=== PATIENT | female | born 1980 | race Caucasian/White ===

== ENCOUNTER 2022-03-20 19:07 | Outpatient (REF) | payer BC, SELFPAY ==
[2022-03-20 20:36] LABS: Bilirubin Negative (Negative); Blood Small (Negative); Clarity Cloudy (Clear); Glucose Negative (Negative); Ketones Negative (Negative); Leukocyte Esterase Large (Negative); Nitrite Negative (Negative); Specific Gravity 1.015 (1.005-1.025); Urobilinogen 0.2 EU/dL (Up TO 0.2); pH 6.5 (5-8)
[2022-03-20 20:47] LABS: Bacteria Many HPF (Negative); C & S Indicated? C&S Done As Ordered; Crystals Negative HPF (Negative); Epithelial Cells Moderate HPF (Negative); Mucus Negative (Negative); RBC 0-2 HPF (0-2); WBC >50 HPF (0-5)
== END 2022-03-20 19:08 | disposition home or self-care (01) ==
LOC: LBN 19:07
PROVIDERS: Visit Provider Physician Assistant Medical
DX: N39.0 Urinary tract infection, site not specified (principal)
CPT/HCPCS: 87077; 81003; 81015; 87086; 87186

== ENCOUNTER 2022-03-20 20:03 | Inpatient (IN) | payer BC, SELFPAY ==
[2022-03-20] VITALS (14 sets, daily range): BP systolic 88–96; BP diastolic 51–78; PULSE 90–105; RESP 10–18; TEMP 36.4; O2SAT 98–100
--- NOTE | 2022-03-20 20:32 | ED.GENADUL_ITS ---
Discharge Plan Discharge Details Chief Complaint: FlankPain Admit Date/Time: 03/21/22 00:27 Admit Provider: Wolf Maddox Attending Provider: Wolf Maddox Primary Care Provider: Kerrie,Local ED Provider: Salena Friedman Discharge Data Discharge Date/Time-TO BE ENTERED AT DEPARTURE: 03/21/22 02:00 Medical Decision Making Patient is a pleasant 41 year old female presenting today with c/c of UTI and right sided flank pain. She states that she had initial onset of symptoms a few weeks ago. Was seen out outside hospital, diagnosed with UTI, pyelonephritis, kidney stone and treated with PO Macrobid x 1wk. She reports that this initially helped with her symptoms but that 2 days after stopping the abx, her sxs began again. She has not had any dysurea, frequency or urency. However, she notes that her urine has been foul smelling and cloudy. Prior to this incident, last UTI was in 2012. She denies vaginal discharge. States she has been constipated. T max of 99. Endorses nausea, no vomiting. Reports the right flank pain can radiate to right side of abdomen. On exam, patient appears fatigued and uncomfortable, splinting her right side. She does not appear septic at this time. Lungs are clear, normal cardiac auscultation. Abdomen significant for some right lateral mid abdominal discomfort, close to the lower aspect CVA on that side. Does have pain with CVA percussion on the right. Patient is hypertensive a blood pressure of 88/60, slightly tachycardic with a heart rate of 105. She reports that her blood pressure is typically well, patient is fairly thin. No history of hypertension, no familial history of hypertension. I do not have previous blood pressure for comparison but based on description, this could be baseline for the patient. She does appear dehydrated. We will begin the patient on fluids. We will obtain imaging for possible stone and blood work. Patient declines any antiemetics analgesics. Labs reviewed, signficant for WBC of 33 with bands noted. UA consistent with UTI. We will also obtain blood cultures with a significant white count. Patient started on 1 g ceftriaxone. FINDINGS: Lungs: Mild atelectasis in the lung bases. Heart: Heart size normal. Mediastinal space: The visualized distal esophagus is largely contracted without gross abnormality. Liver: Normal contour. Well-circumscribed low-density lesion in the left hepatic lobe demonstrating benign CT features most consistent with hepatic cyst. No further imaging characterization/followup is required based on current consensus criteria. No intrahepatic biliary ductal dilatation. Gallbladder and bile ducts: Normal. No calcified stones. No ductal dilation. Pancreas: Normal. No inflammatory changes or ductal dilation. Spleen: Normal. No splenomegaly. Adrenal glands: Normal. No adrenal mass. Kidneys and ureters: 3 mm nonobstructive right renal stone. Asymmetric right renal enlargement with moderate right perinephric stranding. There is right periureteral stranding without gross ureterectasis. Consider UTI and pyelonephritis. Postcontrast CT would allow more sensitive/specific assessment for changes of pyelonephritis if clinically indicated. The distal right ureter is difficult to definitively identify due to relative lack of intrapelvic fat in the region. There are 3 calcifications in the right hemipelvis measuring 6 mm, 3 mm, and 4 mm, which are felt to most likely be separate from the distal right ureter and likely represent phleboliths although it is difficult to completely exclude a distal ureteral stone. The left kidney and left collecting system are unremarkable. Stomach and bowel: The stomach is largely contracted without gross abnormality. The small bowel is nondilated with no gross abnormality. There is a large amount of stool distributed in the mid and proximal colon suggesting possible constipation. Appendix: The appendix is not identified. No gross changes of appendicitis. Intraperitoneal space: Small amount of intrapelvic free fluid, within physiologic range for a young woman. No free air. Vasculature: No acute process. No abdominal aortic aneurysm. Lymph nodes: No adenopathy. Urinary bladder: The urinary bladder is largely contracted without gross abnormality. Reproductive: IUD in the uterus, grossly well-positioned. Bones/joints: No acute osseous abnormalities. Soft tissues: Unremarkable. IMPRESSION: 1. Asymmetric right-sided perinephric and periureteral stranding without gross hydronephrosis or hydroureter. Consider UTI/pyelonephritis. Postcontrast CT would allow more sensitive/specific confirmation for changes of pyelonephritis if clinically indicated. No gross abscess. 2. 3 mm nonobstructive right renal stone. No definite ureteral stones are identified although there are multiple intrapelvic calcifications which probably represent phleboliths although the distal ureter is difficult to identify and the possibility of a distal ureteral stone is difficult to definitively exclude. 3. Large amount of stool in the mid and proximal colonic segments suggesting constipation. 4. Small amount of intrape lvic free fluid, within physiologic range for a young woman. No free air. 5. Additional nonemergent findings detailed above. Consulted with Dr. Amanda with urology at [facility]. She advised that hte stone is small, not the issue. Feels that the constipation may be complicating this. Recommended trying to assist with this and that it would likely correct some of her issues. She did not feel that this was pyelonephritis. Feels that there is nothing more needed for stone. Advised this should be able pass without assistance and does not need Flomax. Remain concerned given the patient's general malaise, significant leukocytosis as the patient may be becoming septic. As stone is present, will broaden antibiotic coverage and transition to Zosyn. As recommended by Dr. Amanda, will give patient magnesium citrate to induce bowel movement. Plan to admit the patient for continued monitoring and management of her pyelonephritis, stone and constipation. I discussed this plan with the patient. She is feeling improved after initial dose of antibiotic and fluids. She is in agreement with plan for admission. Consult with Dr. Page who agrees to admission. HPI General Date/Time Provider Initiated Documentation: 03/20/22 20:07 . Limitations to Documentation: no limitations . Information obtained by: patient, family, RN/MD (contact by urgent care cliician prior to arrival) and RN notes reviewed . History of Present Illness 41 year old F presents to the emergency department with the chief complaint of right flank pain, increeased frequency/urgency of urination, general malais, described as moderate, with intensity rated at 7. Quality is described as aching, and is localized to the back. Patient reports no radiation. Patient started experiencing this week(s) and it has been intermittent (had improved briefly with abx but has gotten much worse now). Medication improves symptom(s), (abx) No exacerbating factors reported . Patient notes loss of appetite, malaise and nausea/vomiting; denies confusion, chest pain, cough, diaphoresis, fever/chills, headaches, rash and shortness of breath. Patient did receive the following treatments prior to arrival, none Related Data Home Medications Medication Instructions Recorded Confirmed Zn-pyg [id number] palmet cap PO 03/21/22 capsule ascorbic acid (vitamin C) 100 mg See Rx Instructions .Route .COMPLEX 03/21/22 03/21/22 tablet dextroamphetamine-amphetamine 5 mg 5 mg PO BID 03/21/22 03/21/22 tablet (Adderall) ferrous gluconate 225 mg (27 mg See Rx Instructions .Route .COMPLEX 03/21/22 03/21/22 iron) tablet lamotrigine 200 mg tablet 200 mg PO BID 03/21/22 03/21/22 (Lamictal) mecobalamin (vitamin B12) 1,000 mcg PO 03/21/22 mcg chewable tablet (B12 Active) pravastatin 40 mg tablet 40 mg 03/21/22 sertraline 100 mg tablet (Zoloft) 100 mg PO BID 03/21/22 03/21/22 bupropion HCl 100 mg tablet,12 hr 100 mg PO DAILY 03/22/22 03/22/22 sustained-release bupropion HCl 150 mg 24 hr tablet, 150 mg PO DAILY 03/22/22 03/22/22 extended release Allergies Allergy/AdvReac Type Severity Reaction Status Date / Time codeine Allergy Unknown Verified 03/23/22 11:06 General Stated Complaint: FlankPain JERROD: 3 Review of Systems Constitutional Constitutional: Reports as per HPI, Denies chills and Denies fever(s) Cardiovascular Cardiovascular: Denies chest pain Respiratory Respiratory: Denies cough Gastrointestinal Gastrointestinal: Denies abdominal pain Genitourinary Genitourinary: Reports as per HPI Musculoskeletal Musculoskeletal: Reports as per HPI Integumentary/Breasts Skin/Breast: Reports as per HPI and Denies rash [facility] All Active Problems (Updated 03/24/22 @ 15:02 by Joan Douglas NP) Discharge planning issues (Acute) Anemia (Chronic) Constipation (Chronic) Renal lithiasis (Acute) Pyelonephritis, acute (Acute) Medical History (Updated 03/24/22 @ 15:02 by Joan Douglas NP) Major depression, chronic Family History (Updated 03/21/22 @ 01:32 by Wolf Maddox) Other Family history non-contributory Social History Smoking/Tobacco Use Status: Never Smoking risk assessment performed?: Yes Alcohol Intake: never Drug use: Never Substance use type: does not use Do you feel safe at home: Yes Do you feel safe in your relationship?: Yes Exam Const General: cooperative, comfortable, no acute distress, well developed, well groomed and ill appearing acutely Nutritional Appearance: well nourished and thin Orientation: alert and awake [facility] Mouth: mucous membranes dry (appears dry) Resp Effort & Inspection: normal respiratory effort and no respiratory distress Auscultation: clear to auscultation bilaterally, no rales, no rhonchi and no wheezes Cardio Rate: regular rate Rhythm: regular rhythm Heart Sounds: S1 normal and S2 normal GI Inspection: normal to inspection Palpation: soft, no hepatosplenomegaly, not firm, no guarding, not rigid and tender (right lateral mid abdomen discomfort) not at McBurney's point, Ramirez's sign negative and with no rebound tenderness Percussion: normal to percussion Auscultation: normal bowel sounds Back/Spine/Pelvis Back: CVA tenderness (right side) Skin General skin exam: no rashes or lesions noted Trauma: no lacerations or abrasions Neuro General: patient alert and patient awake Cognition: normal cognition Speech: speech normal Gait: normal gait Extrem General: normal to inspection, no pedal edema, no calf tenderness and normal gait Psych Appearance: grossly normal and well kempt Mental Status: mental status grossly normal Speech and Movement: speech and movement normal Course Vital Signs Vital signs: Vital Signs Temperature 36.4 C L 03/20/22 20:09 Pulse 105 H 03/20/22 20:09 Respiratory Rate 18 03/20/22 20:09 Blood Pressure 88/68 L 03/20/22 20:09 Pulse Oximetry 99 03/20/22 20:09 Temperature 36.4 C L 03/20/22 20:09 Temperature Source Tympanic 03/20/22 20:09 Pulse 105 H 03/20/22 20:09 Respiratory Rate 18 03/20/22 20:09 Respiratory Effort Non-Labored 03/20/22 20:14 Blood Pressure 88/68 L 03/20/22 20:09 Blood Pressure Position Supine 03/20/22 20:09 Pulse Oximetry 99 03/20/22 20:09 Oxygen Delivery Method Room Air 03/20/22 20:09 Oxygen Flow Rate 0 03/20/22 20:09 Pain Level 7 03/20/22 20:09
--- NOTE | 2022-03-20 21:00 | DI.CT_ITS ---
Exam(s) CT RENAL COLIC WO EXAM: CT RENAL COLIC WO CLINICAL HISTORY: right flank. TECHNIQUE: Imaging Protocol: Axial computed tomography images with coronal and sagittal reformatted images were created and reviewed CONTRAST MATERIAL: Intravenous: none Oral: None COMPARISON: No exams were available for comparison FINDINGS: VISUALIZED LUNG BASES: No nodules nor pleural effusions evident. ABDOMEN: There is no ascites. LIVER: There are no obvious focal hepatic lesions evident of this noninfused study. GALLBLADDER/BILIARY: No obvious gallbladder pathology. CBD is not dilated. PANCREAS: No evidence of pancreatic mass nor dilatation of the pancreatic duct. SPLEEN: Spleen is not enlarged. No obvious intrasplenic lesions. ADRENALS: There are no significant adrenal masses. KIDNEYS:Both kidneys appears somewhat hypodense. However, there is also a small 2-3 millimeter nonob structive calculus in the right kidney midpole level. There is also mild stranding around the right kidney. No cyst or solid renal masses.. ABDOMINAL AORTA: Abdominal aorta is not enlarged. LYMPH NODES: There is no retroperitoneal nor paraaortic adenopathy. ABDOMINAL WALL: No evidence of significant anterior abdominal wall nor inguinal hernia. GI: There is no evidence of bowel obstruction, free air, nor abscess. PELVIS: LYMPH NODES: There is no intrapelvic nor inguinal adenopathy. GI: Appendix not able to be identified as a separate structure but there no obvious signs of acute ap pendicitis.No evidence of sigmoid diverticulitis. URINARY BLADDER: No calculi nor obvious masses evident REPRODUCTIVE: IUD is noted in the pelvis. No abnormal adnexal masses. Small amount of free fluid in the cul-de-sac noted OSSEOUS: No significant osseous lesions. IMPRESSION: 1. There is a solitary 2-3 millimeter midpole level calculus in the right kidney and some mild perine phric streaking on the right side noted. No hydronephrosis. Possibly related to urinary tract infec tion/pyelonephritis. Postcontrast CT scan would be more sensitive/specific confirmation for findings of bowel nephritis, if clinically indicated. There is no obvious renal abscess evident on this sulma nfused study. 2. IUD noted in the uterus. Also small amount of fluid in the cul-de-sac. No obvious abnormal adnex al masses although the ovaries are difficult to delineate from adjacent unopacified small bowel loops . 3. Other findings as above. RADIATION DOSE DELIVERED: 435.27mGy.cm Total DLP DATA REPOSITORY: All CT scans at this facility are submitted to the National Radiology Data Registry (NRDR) Dose Index Registry (DIR) with the [employer] ([employer]). RADIATION OPTIMIZATION: All CT scans at this facility use at least one of these dose optimization te chniques: automated exposure control; mA and/or kV adjustment per patient size (includes targeted exa ms where dose is matched to clinical indication); or iterative reconstruction.
[2022-03-20] MEDS: Normal Saline 1,000 ML 1000 ML IV ×2 (21:09→22:28)
[2022-03-20 21:13] LABS: HCT 36.9 % (36.0-46.0); MCH 30.8 pg (27.0-33.0); MCHC 32.5 % (32.0-36.0); MCV 95 fL (80-95); MPV 10.1 fL (8.0-11.0); Platelet Count 412 10^3/uL (130-400); RBC 3.89 10^6/uL (3.93-5.22); RDW 13.2 % (11.7-14.6); RDW-SD 45.3 fL
[2022-03-20 21:14] LABS: Bilirubin Negative (Negative); Blood Moderate (Negative); Clarity Turbid (Clear); Glucose Negative (Negative); Ketones Negative (Negative); Leukocyte Esterase Large (Negative); Nitrite Negative (Negative); Specific Gravity 1.025 (1.005-1.025)
[2022-03-20 21:25] LABS: Bacteria Many HPF (Negative); Crystals Negative HPF (Negative); Epithelial Cells Moderate HPF (Negative); Mucus Negative (Negative); RBC 0-2 HPF (0-2); WBC >50 HPF (0-5)
[2022-03-20 21:28] LABS: C & S Indicated? No
[2022-03-20 21:36] LABS: ALT 21 U/L (14-59); AST 17 U/L (15-37); Albumin 3.2 g/dL (3.4-5.0); Alkaline Phosphatase 75 U/L (46-116); Anion Gap 9.4 mmol/L (3-11); BUN 11 mg/dL (7-18); Bilirubin, Total 0.5 mg/dL (0.2-1.0); CO2 28.6 mmol/L (21.0-32.0); Calcium 8.6 mg/dL (8.5-10.1); Chloride 96 mmol/L (98-107); Glucose 98 mg/dL (74-106); Potassium 3.7 mmol/L (3.5-5.1); Sodium 134 mmol/L (136-145); Total Protein 7.1 g/dL (6.4-8.2)
[2022-03-20 21:41] LABS: Absolute Lymphocyte Count 1.67 10^3/uL (1.2-3.4); Absolute Monocyte Count 2.34 10^3/uL (0.1-0.8); Absolute Neutrophil Count 29.14 10^3/uL (1.2-6.7); Bands % 1; Diff Comment Manual Differential; Metamyelocytes % 1; RBC Morphology Normal
[2022-03-20 21:43] LABS: WBC 33.49 10^3/uL (4.4-10.8)
[2022-03-20] MEDS: cefTRIAXone 1 GM/50 ML BAG IVPB (22:28)
--- NOTE | 2022-03-20 22:39 | DI.VRAD_ITS ---
PROCEDURE INFORMATION: Exam: CT Abdomen And Pelvis Without Contrast Exam date and time: 03/20/2022 9:59 PM Age: 41 years old Clinical indication: Abdominal pain; Flank; Right; Prior surgery; Surgery date: 6+ months; Surgery type: Appendectomy; Additional info: Right flank pain TECHNIQUE: Imaging protocol: Computed tomography of the abdomen and pelvis without contrast. Radiation optimization: All CT scans at this facility use at least one of these dose optimization techniques: automated exposure control; mA and/or kV adjustment per patient size (includes targeted exams where dose is matched to clinical indication); or iterative reconstruction. COMPARISON: No relevant prior studies available. FINDINGS: Lungs: Mild atelectasis in the lung bases. Heart: Heart size normal. Mediastinal space: The visualized distal esophagus is largely contracted without gross abnormality. Liver: Normal contour. Well-circumscribed low-density lesion in the left hepatic lobe demonstrating benign CT features most consistent with hepatic cyst. No further imaging characterization/followup is required based on current consensus criteria. No intrahepatic biliary ductal dilatation. Gallbladder and bile ducts: Normal. No calcified stones. No ductal dilation. Pancreas: Normal. No inflammatory changes or ductal dilation. Spleen: Normal. No splenomegaly. Adrenal glands: Normal. No adrenal mass. Kidneys and ureters: 3 mm nonobstructive right renal stone. Asymmetric right renal enlargement with moderate right perinephric stranding. There is right periureteral stranding without gross ureterectasis. Consider UTI and pyelonephritis. Postcontrast CT would allow more sensitive/specific assessment for changes of pyelonephritis if clinically indicated. The distal right ureter is difficult to definitively identify due to relative lack of intrapelvic fat in the region. There are 3 calcifications in the right hemipelvis measuring 6 mm, 3 mm, and 4 mm, which are felt to most likely be separate from the distal right ureter and likely represent phleboliths although it is difficult to completely exclude a distal ureteral stone. The left kidney and left collecting system are unremarkable. Stomach and bowel: The stomach is largely contracted without gross abnormality. The small bowel is nondilated with no gross abnormality. There is a large amount of stool distributed in the mid and proximal colon suggesting possible constipation. Appendix: The appendix is not identified. No gross changes of appendicitis. Intraperitoneal space: Small amount of intrapelvic free fluid, within physiologic range for a young woman. No free air. Vasculature: No acute process. No abdominal aortic aneurysm. Lymph nodes: No adenopathy. Urinary bladder: The urinary bladder is largely contracted without gross abnormality. Reproductive: IUD in the uterus, grossly well-positioned. Bones/joints: No acute osseous abnormalities. Soft tissues: Unremarkable. IMPRESSION: 1. Asymmetric right-sided perinephric and periureteral stranding without gross hydronephrosis or hydroureter. Consider UTI/pyelonephritis. Postcontrast CT would allow more sensitive/specific confirmation for changes of pyelonephritis if clinically indicated. No gross abscess. 2. 3 mm nonobstructive right renal stone. No definite ureteral stones are identified although there are multiple intrapelvic calcifications which probably represent phleboliths although the distal ureter is difficult to identify and the possibility of a distal ureteral stone is difficult to definitively exclude. 3. Large amount of stool in the mid and proximal colonic segments suggesting constipation. 4. Small amount of intrapelvic free fluid, within physiologic range for a young woman. No free air. 5. Additional nonemergent findings detailed above. Dictated and Authenticated by: Carrillo Velázquez MD. Ordering:CHANDAN Martino MD
[2022-03-21] VITALS (19 sets, daily range): BP systolic 90–104; BP diastolic 53–66; PULSE 95–122; RESP 8–22; TEMP 36.6–39.7; O2SAT 93–100
[2022-03-21] MEDS: Normal Saline 1,000 ML 250 ML IV (00:11)
[2022-03-21] MEDS: Magnesium Citrate 300 ML BTL 150 ML PO (00:11)
[2022-03-21] MEDS: PIPERACILLIN/TAZO 3.375 GM in Normal Saline 50 ML IVPB ×4 (00:11→17:43)
--- NOTE | 2022-03-21 00:37 | W.PM.HP.N ---
Date of service: 03/21/22 Time of Service: 00:37 Assessment and Plan Assessment and plan (1) Pyelonephritis, acute: Start date: 03/20/22 Status: Acute Assessment and plan: This is a 41-year-old lady with acute right pyelonephritis associated with renal lithiasis. She has no history of either in the past. She has mild sepsis syndrome which is responding well to IV hydration. She will not require ICU level care. Admit for IV Zosyn and IV hydration with monitoring for signs or symptoms of obstruction with weak imaging ultrasound if necessary.-year-old patient. Patient definitely should follow-up with urology as an (2) Renal lithiasis: Start date: 03/20/22 Status: Acute Assessment and plan: Urology thought the patient should build to pass a stone with hydration. IV hydration and pain meds (3) Constipation: Start date: 03/20/22 Status: Chronic Assessment and plan: Patient will be given cathartics along with IV hydration which should help this problem. Chronic issue with poor dietary habits. (4) Major depression, chronic: Assessment and plan: This is a chronic problem the patient on 3 antidepressants may contribute to her constipation. Review and continue her outpatient medical therapy. This was not originally on her medication list. History of Present Illness History of Present Illness Chief Complaint: Right flank pain Narrative: This is a 41-year-old female patient presenting to the ED the day prior to admission with complaints of a recent UTI and right sided flank pain. She states that she had initial onset of symptoms a few weeks ago. Was seen out outside hospital in [place], [place] diagnosed with UTI, pyelonephritis, kidney stone and treated with oral Macrobid for a week. She reports that this initially helped with her symptoms but that 2 days after stopping the antibiotic, her symptoms began again. She has not had any dysuria, frequency or urency. However, she notes that her urine has been foul smelling and cloudy. Prior to this incident, last UTI was in 2012. She denies vaginal discharge. States she has been constipated. She denies any fever. Patient did have some nausea, but no vomiting. Patient does state that the right flank pain can radiate to right side of abdomen. She also previous history of renal calculi or gross hematuria. In the ED she was found to be slightly hypotensive and tachycardic with a very high WBC count. She did appear to have mild sepsis and was placed on IV hydration. Outside urology were consulted and did not think that the renal stone was obstructing or contributing to her pyonephritis at this time. They did recommend outpatient follow-up with urology. Review of Systems Narrative: 13 point review of systems otherwise unrevealing or stable. Patient does have hospital chronically. She is on 3 psychiatric medicines which need to be reconciled. PFSH All Active Problems (Updated 03/21/22 @ 01:35 by Wolf Maddox) Constipation (Chronic) Renal lithiasis (Acute) Pyelonephritis, acute (Acute) Medical History (Updated 03/21/22 @ 01:35 by Wolf Maddox) Major depression, chronic Family History (Updated 03/21/22 @ 01:32 by Wolf Maddox) Other Family history non-contributory Social History Smoking/Tobacco Use Status: Never Smoking risk assessment performed?: Yes Alcohol Intake: never Drug use: Never Substance use type: does not use Do you feel safe at home: Yes Do you feel safe in your relationship?: Yes Meds Allergies and Home Medications Allergies Allergy/AdvReac Type Severity Reaction Status Date / Time No Known Allergies Allergy Unverified 03/21/22 01:09 Exam Narrative Exam Narrative: General: Patient appears thin but well-nourished, alert and oriented x3, moderate distress from her back pain especially with sitting up. She appears appropriate for age. HEENT: Normocephalic, eyes with pupils equal and reactive light, extraocular movement intact and sclera anicteric. Neck: Supple without JVD or enlarged thyroid. Back: Stooped posture, right CVA tenderness moderate severity to percussion. Lungs: Fair aeration and clear to all station percussion. Breast: Exam deferred. Abdomen: Scaphoid contour, is tender over the right abdomen with guarding but no rebound. No palpable hepatosplenomegaly. Bowel sounds positive all quadrants. Genitalia/rectal: Exam deferred. Extremities: Without clubbing, cyanosis or pitting edema. Peripheral pulses intact. Skin: Normal color, warm and dry. Neuro: Cranial nerves II through XII gross intact, no focalizing motor deficits. No tremor. Psych: Depressed mood with flattened affect, fair eye contact. No abnormal thought processes. Remote and recent memory intact. Slow monotonous tone to voice. Results Imaging Imaging Studies: Exam: CT Abdomen And Pelvis Without Contrast Exam date and time: 03/20/2022 9:59 PM Age: 41 years old Clinical indication: Abdominal pain; Flank; Right; Prior surgery; Surgery date: 6+ months; Surgery type: Appendectomy; Additional info: Right flank pain TECHNIQUE: Imaging protocol: Computed tomography of the abdomen and pelvis without contrast. Radiation optimization: All CT scans at this facility use at least one of these dose optimization techniques: automated exposure control; mA and/or kV adjustment per patient size (includes targeted exams where dose is matched to clinical indication); or iterative reconstruction. COMPARISON: No relevant prior studies available. FINDINGS: Lungs: Mild atelectasis in the lung bases. Heart: Heart size normal. Mediastinal space: The visualized distal esophagus is largely contracted without gross abnormality. Liver: Normal contour. Well-circumscribed low-density lesion in the left hepatic lobe demonstrating benign CT features most consistent with hepatic cyst. No further imaging characterization/followup is required based on current consensus criteria. No intrahepatic biliary ductal dilatation. Gallbladder and bile ducts: Normal. No calcified stones. No ductal dilation. Pancreas: Normal. No inflammatory changes or ductal dilation. Spleen: Normal. No splenomegaly. Adrenal glands: Normal. No adrenal mass. Kidneys and ureters: 3 mm nonobstructive right renal stone. Asymmetric right renal enlargement with moderate right perinephric stranding. There is right periureteral stranding without gross ureterectasis. Consider UTI and pyelonephritis. Postcontrast CT would allow more sensitive/specific assessment for changes of pyelonephritis if clinically indicated. The distal right ureter is difficult to definitively identify due to relative lack of intrapelvic fat in the region. There are 3 calcifications in the right hemipelvis measuring 6 mm, 3 mm, and 4 mm, which are felt to most likely be separate from the distal right ureter and likely represent phleboliths although it is difficult to completely exclude a distal ureteral stone. The left kidney and left collecting system are unremarkable. Stomach and bowel: The stomach is largely contracted without gross abnormality. The small bowel is nondilated with no gross abnormality. There is a large amount of stool distributed in the mid and proximal colon suggesting possible constipation. Appendix: The appendix is not identified. No gross changes of appendicitis. Intraperitoneal space: Small amount of intrapelvic free fluid, within physiologic range for a young woman. No free air. Vasculature: No acute process. No abdominal aortic aneurysm. Lymph nodes: No adenopathy. Urinary bladder: The urinary bladder is largely contracted without gross abnormality. Reproductive: IUD in the uterus, grossly well-positioned. Bones/joints: No acute osseous abnormalities. Soft tissues: Unremarkable. IMPRESSION: 1. Asymmetric right-sided perinephric and periureteral stranding without gross hydronephrosis or hydroureter. Consider UTI/pyelonephritis. Postcontrast CT would allow more sensitive/specific confirmation for changes of pyelonephritis if clinically indicated. No gross abscess. 2. 3 mm nonobstructive right renal stone. No definite ureteral stones are identified although there are multiple intrapelvic calcifications which probably represent phleboliths although the distal ureter is difficult to identify and the possibility of a distal ureteral stone is difficult to definitively exclude. 3. Large amount of stool in the mid and proximal colonic segments suggesting constipation. 4. Small amount of intrapelvic free fluid, within physiologic range for a young woman. No free air. 5. Additional nonemergent findings detailed above. Labs Result diagrams: 03/20/22 21:05 03/20/22 21:05 Labs: Laboratory Results - last 24 hr 03/20/22 03/20/22 03/20/22 21:00 21:05 21:05 WBC 33.49 H* RBC 3.89 L Hgb 12.0 Hct 36.9 MCV 95 MCH 30.8 MCHC 32.5 RDW 13.2 Plt Count 412 H MPV 10.1 Immature Gran % 0.0 Neutrophils % 86.0 Band Neutrophils % 1 Lymphocytes % 5.0 Monocytes % 7.0 Eosinophils % 0.0 Basophils % 0.0 Metamyelocytes % 1 Nucleated RBC % 0.0 Absolute Neutrophils 29.14 H Absolute Lymphocytes 1.67 Absolute Monocytes 2.34 H Absolute Eosinophils 0.00 Absolute Basophils 0.00 RBC Morphology Normal Sodium 134 L Potassium 3.7 Chloride 96 L Carbon Dioxide 28.6 Anion Gap 9.4 BUN 11 Creatinine 1.0 Estimated GFR/1.73 m2 >= 60.00 Glucose 98 Calcium 8.6 Total Bilirubin 0.5 AST 17 ALT 21 Alkaline Phosphatase 75 Total Protein 7.1 Albumin 3.2 L Urine Color Yellow Urine Clarity Turbid Urine pH 6.0 Ur Specific [place] 1.025 Urine Protein >=300 H Urine Ketones Negative Urine Blood Moderate H Urine Nitrite Negative Urine Bilirubin Negative Urine Urobilinogen 1.0 H Ur Leukocyte Esterase Large H Urine RBC 0-2 Urine WBC >50 H Ur Epithelial Cells Moderate Urine Crystals Negative Urine Bacteria Many Urine Mucus Negative Ur Culture Indicated? No Urine Glucose Negative Last Vital Signs Temp 36.4 C L 03/20/22 20:09 Pulse 93 H 03/20/22 23:16 Resp 12 03/20/22 23:30 BP 89/54 L 03/20/22 23:16 Pulse Ox 98 03/20/22 23:30
[2022-03-21 01:49] LABS: Source Nasal/Nares
[2022-03-21] MEDS: MORPHine 4 MG/ML SYR 2 MG IVP ×2 (02:23→06:40)
[2022-03-21 02:39] LABS: COVID-19 PCR Negative (Negative)
[2022-03-21] MEDS: Normal Saline 1,000 ML 150 ML IV ×2 (06:32→12:32)
[2022-03-21] MEDS: Heparin 5,000 UNITS/ML VIAL 5000 UNITS SC ×3 (06:33→22:23)
[2022-03-21 06:38] LABS: Abs Immature Grans 0.29 10^3/uL (0.0-0.06); MCH 31.4 pg (27.0-33.0); MCHC 33.3 % (32.0-36.0); MCV 94 fL (80-95); MPV 10.1 fL (8.0-11.0); RBC 3.18 10^6/uL (3.93-5.22); RDW 13.4 % (11.7-14.6); RDW-SD 46.7 fL
[2022-03-21 06:54] LABS: ALT 18 U/L (14-59); AST 10 U/L (15-37); Albumin 2.4 g/dL (3.4-5.0); Alkaline Phosphatase 68 U/L (46-116); Anion Gap 7.9 mmol/L (3-11); BUN 9 mg/dL (7-18); Bilirubin, Total 0.2 mg/dL (0.2-1.0); CO2 24.1 mmol/L (21.0-32.0); CREATININE 0.9 mg/dL (0.55-1.02); Calcium 7.4 mg/dL (8.5-10.1); Chloride 104 mmol/L (98-107); Glucose 165 mg/dL (74-106); Potassium 3.9 mmol/L (3.5-5.1); Sodium 136 mmol/L (136-145); Total Protein 5.8 g/dL (6.4-8.2)
[2022-03-21 07:13] LABS: WBC 25.05 10^3/uL (4.4-10.8)
[2022-03-21 07:36] LABS: Platelet Count 320 10^3/uL (130-400)
[2022-03-21 07:37] LABS: Absolute Eosinophil Count 0.25 10^3/uL (0.0-0.7); Absolute Neutrophil Count 22.29 10^3/uL (1.2-6.7); Bands % 2; Basophilic Stippling Present; Diff Comment Manual Differential
[2022-03-21] MEDS: Acetaminophen 325 MG TAB 650 MG PO (07:48)
--- NOTE | 2022-03-21 09:16 | INITIAL_ITS ---
- If Service Date Differs Date of service: 03/21/22 Time of Service: 09:16 Care Management Initial Assess REASON FOR HOSPITALIZATION:: Pyelonephritis PAST MEDICAL HISTORY/PAST SURGICAL HISTORY:: All Active Problems (Updated 03/21/22 @ 01:35 by Wolf Maddox). Constipation (Chronic). Renal lithiasis (Acute). Pyelonephritis, acute (Acute). Medical History (Updated 03/21/22 @ 01:35 by Wolf Maddox). Major depression, chronic PREVIOUS FUNCTIONAL STATUS/SOCIAL/FAMILY SUPPORTS:: Paula lives in [place], [place] but uses her mother's address in [place] for her mail. Her boyfriend Howard lives in [facility] and Paula spends a lot of time there as well. Her work requires her to travel all over the country. 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 CURRENT FUNCTIONAL STATUS:: Paula was lying in bed visiting with her boyfriend when CM met with her. She stated that she is starting to feel a bit better. She was complaining of constipation and medication, including a suppository has been ordered to correcxt the problem. ADVANCE DIRECTIVES:: none on file Has patient been provided with info about the portal/API?: Yes Did the patient sign up for the portal?: No CODE STATUS:: Full Code INSURANCE COVERAGE / FINANCIAL ISSUES:: [employer] CURRENT HOME/COMMUNITY SERVICES/EQUIPMENT:: none PRIMARY CARE PHYSICIAN:: none locally. Patient lives in [place] POTENTIAL DISCHARGE NEEDS:: follow up with PCP and Urology PATIENT/FAMILY EDUCATION NEEDS:: Review of discharge instructions, medications, limitations, activity, follow up plan; discuss [facility] [employer] TRANSPORTATION:: Paula will likely discharge home with no new services. She will follow up with her PCP and Urology and transport with family. CM will continue to support and assess for discharge concerns.
--- NOTE | 2022-03-21 09:38 | PGE_ITS ---
Date of Service Date of service: 03/21/22 Time of Service: 08:38 Assessment and Plan Assessment and plan (1) Pyelonephritis, acute: Start date: 03/20/22 Status: Acute Assessment and plan: Continue IV Zosyn day 1 and IV hydration urology will be consulted cultures pending continue pain management (2) Renal lithiasis: Start date: 03/20/22 Status: Acute Assessment and plan: Urology was consulted, no further interventions at this time. she can follow outpatient (3) Constipation: Start date: 03/20/22 Status: Chronic Assessment and plan: continue aggressive bowel management. (4) Major depression, chronic: Assessment and plan: This is a chronic problem the patient on 3 antidepressants may contribute to her constipation. Review and continue her outpatient medical therapy. This was not originally on her medication list. discussed with Dr Velazquez Subjective Subjective Patient reports: still having pain, tolerating liquids well, no bowel movement and fever Exam Const General: cooperative and frail appearing Nutritional Appearance: thin Orientation: alert, awake and oriented x3 HENMT Head: normal to inspection, normocephalic and atraumatic Mouth: oral mucosae normal Chest Chest: normal inspection of the chest Resp Effort & Inspection: normal respiratory effort Auscultation: clear to auscultation bilaterally Cardio Rate: regular rate Rhythm: regular rhythm GI Inspection: normal to inspection Palpation: soft Auscultation: normal bowel sounds Skin General skin exam: no rashes or lesions noted Neuro General: patient alert, patient awake, patient oriented x3 and no focal motor deficits Cognition: normal cognition Speech: speech normal Extrem General: normal to inspection, full ROM and no pedal edema Objective Last Vital Signs Temp 38.1 C H 03/21/22 08:51 Pulse 122 H 03/21/22 07:38 Resp 21 03/21/22 07:38 BP 96/56 L 03/21/22 07:38 Pulse Ox 97 03/21/22 07:38 Laboratory Results - last 24 hr 03/20/22 03/20/22 03/20/22 21:00 21:05 21:05 WBC 33.49 H* RBC 3.89 L Hgb 12.0 Hct 36.9 MCV 95 MCH 30.8 MCHC 32.5 RDW 13.2 Plt Count 412 H MPV 10.1 Immature Gran % 0.0 Neutrophils % 86.0 Band Neutrophils % 1 Lymphocytes % 5.0 Monocytes % 7.0 Eosinophils % 0.0 Basophils % 0.0 Metamyelocytes % 1 Nucleated RBC % 0.0 Absolute Neutrophils 29.14 H Absolute Lymphocytes 1.67 Absolute Monocytes 2.34 H Absolute Eosinophils 0.00 Absolute Basophils 0.00 RBC Morphology Normal Basophilic Stippling Sodium 134 L Potassium 3.7 Chloride 96 L Carbon Dioxide 28.6 Anion Gap 9.4 BUN 11 Creatinine 1.0 Estimated GFR/1.73 m2 >= 60.00 Glucose 98 Calcium 8.6 Total Bilirubin 0.5 AST 17 ALT 21 Alkaline Phosphatase 75 Total Protein 7.1 Albumin 3.2 L Urine Color Yellow Urine Clarity Turbid Urine pH 6.0 Ur Specific [place] 1.025 Urine Protein >=300 H Urine Ketones Negative Urine Blood Moderate H Urine Nitrite Negative Urine Bilirubin Negative Urine Urobilinogen 1.0 H Ur Leukocyte Esterase Large H Urine RBC 0-2 Urine WBC >50 H Ur Epithelial Cells Moderate Urine Crystals Negative Urine Bacteria Many Urine Mucus Negative Ur Culture Indicated? No Urine Glucose Negative COVID-19 Source SARS-CoV-2 (PCR) 03/21/22 03/21/22 03/21/22 01:15 06:20 06:20 WBC 25.05 H* RBC 3.18 L Hgb 10.0 L D Hct 30.0 L MCV 94 MCH 31.4 MCHC 33.3 D RDW 13.4 Plt Count 320 MPV 10.1 Immature Gran % See Differential Neutrophils % 87.0 Band Neutrophils % 2 Lymphocytes % 4.0 Monocytes % 6.0 Eosinophils % 1.0 Basophils % 0.0 Metamyelocytes % Nucleated RBC % 0.0 Absolute Neutrophils 22.29 H Absolute Lymphocytes 1.00 L Absolute Monocytes 1.50 H Absolute Eosinophils 0.25 Absolute Basophils 0.00 RBC Morphology See Below Basophilic Stippling Present Sodium 136 Potassium 3.9 Chloride 104 Carbon Dioxide 24.1 Anion Gap 7.9 BUN 9 Creatinine 0.9 Estimated GFR/1.73 m2 >= 60.00 Glucose 165 H Calcium 7.4 L Total Bilirubin 0.2 AST 10 L ALT 18 Alkaline Phosphatase 68 Total Protein 5.8 L Albumin 2.4 L Urine Color Urine Clarity Urine pH Ur Specific [place] Urine Protein Urine Ketones Urine Blood Urine Nitrite Urine Bilirubin Urine Urobilinogen Ur Leukocyte Esterase Urine RBC Urine WBC Ur Epithelial Cells Urine Crystals Urine Bacteria Urine Mucus Ur Culture Indicated? Urine Glucose COVID-19 Source Nasal/Nares SARS-CoV-2 (PCR) Negative
[2022-03-21] MEDS: Polyethylene Glycol 3350 17 GM PACKET PO (09:51)
[2022-03-21] MEDS: Docusate Sodium 100 MG CAP PO (09:51)
[2022-03-21] MEDS: Bisacodyl 10 MG SUPP PR (15:13)
[2022-03-21] MEDS: Ketorolac 15 MG/ML VIAL IVP (17:01)
[2022-03-21] MEDS: MORPHine 2 MG/ML SYR IVP (17:43)
[2022-03-22] MEDS: PIPERACILLIN/TAZO 3.375 GM in Normal Saline 50 ML IVPB ×4 (00:22→18:45)
[2022-03-22] MEDS: Normal Saline 1,000 ML 150 ML IV ×3 (03:36→18:45)
[2022-03-22 05:24] LABS: Abs Immature Grans 0.11 10^3/uL (0.0-0.06); Absolute Monocyte Count 1.49 10^3/uL (0.1-0.8); Basophils % 0.5; Eosinophils % 0.3; HCT 28.1 % (36.0-46.0); HGB 8.9 g/dL (11.2-15.7); Immature Grans % 0.7; Lymphocytes % 4.7; MCH 30.5 pg (27.0-33.0); MCHC 31.7 % (32.0-36.0); MCV 96 fL (80-95); MPV 10.4 fL (8.0-11.0); Monocytes % 9.6; Neutrophils % 84.2; Platelet Count 281 10^3/uL (130-400); RBC 2.92 10^6/uL (3.93-5.22); RDW 13.6 % (11.7-14.6); RDW-SD 48.1 fL; WBC 15.47 10^3/uL (4.4-10.8)
[2022-03-22 05:28] LABS: Anion Gap 6.7 mmol/L (3-11); BUN 7 mg/dL (7-18); CO2 24.3 mmol/L (21.0-32.0); CREATININE 0.7 mg/dL (0.55-1.02); Calcium 7.4 mg/dL (8.5-10.1); Chloride 105 mmol/L (98-107); Glucose 89 mg/dL (74-106); Potassium 3.9 mmol/L (3.5-5.1); Sodium 136 mmol/L (136-145)
[2022-03-22 05:29] LABS: Absolute Basophil Count 0.08 10^3/uL (0.0-0.2); Absolute Eosinophil Count 0.05 10^3/uL (0.0-0.7); Absolute Lymphocyte Count 0.73 10^3/uL (1.2-3.4); Absolute Neutrophil Count 13.03 10^3/uL (1.2-6.7)
[2022-03-22] MEDS: Ketorolac 15 MG/ML VIAL IVP (06:08)
[2022-03-22] MEDS: Heparin 5,000 UNITS/ML VIAL 5000 UNITS SC (06:10)
[2022-03-22 07:11] VITALS: BP 103/67; PULSE 92; RESP 18; TEMP 36.9; O2SAT 93
[2022-03-22 08:19] LABS: Iron 11 ug/dL (50-170); Total Iron Binding Capacity 136 ug/dL (250-450); Transferrin Sat 8 % (15-50)
[2022-03-22 08:32] LABS: Ferritin 639 ng/mL (8-252)
[2022-03-22 08:46] LABS: Folate 16.3 ng/mL (8.6-20.0); LDH 240 U/L (81-234)
[2022-03-22] MEDS: Polyethylene Glycol 3350 17 GM PACKET PO (08:58)
[2022-03-22 09:02] LABS: Vitamin B12 > 2000 pg/mL (193-986)
--- NOTE | 2022-03-22 09:54 | W.PM.PROGNOT ---
Date of Service Date of service: 03/22/22 Time of Service: 08:54 Assessment and Plan Assessment and plan (1) Pyelonephritis, acute: Start date: 03/20/22 Status: Acute Assessment and plan: Continue IV Zosyn day 2 and IV hydration urology will be consulted cultures pending continue pain management (2) Renal lithiasis: Start date: 03/20/22 Status: Acute Assessment and plan: Urology was consulted, no further interventions at this time. she can follow outpatient (3) Constipation: Start date: 03/20/22 Status: Chronic Assessment and plan: continue aggressive bowel management. (4) Major depression, chronic: Assessment and plan: This is a chronic problem the patient on 3 antidepressants may contribute to her constipation. Review and continue her outpatient medical therapy. This was not originally on her medication list. discussed with Dr Velazquez Subjective Subjective Patient reports: still having pain, tolerating liquids well, no bowel movement and fever Exam Const General: cooperative and frail appearing Nutritional Appearance: thin Orientation: alert, awake and oriented x3 HENMT Head: normal to inspection, normocephalic and atraumatic Mouth: oral mucosae normal Chest Chest: normal inspection of the chest Resp Effort & Inspection: normal respiratory effort Auscultation: clear to auscultation bilaterally Cardio Rate: regular rate Rhythm: regular rhythm GI Inspection: normal to inspection Palpation: soft Auscultation: normal bowel sounds Skin General skin exam: no rashes or lesions noted Neuro General: patient alert, patient awake, patient oriented x3 and no focal motor deficits Cognition: normal cognition Speech: speech normal Extrem General: normal to inspection, full ROM and no pedal edema Objective Last Vital Signs Temp 36.9 C 03/22/22 07:11 Pulse 92 H 03/22/22 07:11 Resp 18 03/22/22 07:11 BP 103/67 03/22/22 07:11 Pulse Ox 93 03/22/22 07:11 Laboratory Results - last 24 hr 03/22/22 03/22/22 03/22/22 05:00 05:00 05:11 WBC 15.47 H RBC 2.92 L Hgb 8.9 L Hct 28.1 L MCV 96 H MCH 30.5 MCHC 31.7 L D RDW 13.6 Plt Count 281 MPV 10.4 Immature Gran % 0.7 Neutrophils % 84.2 Lymphocytes % 4.7 Monocytes % 9.6 Eosinophils % 0.3 Basophils % 0.5 Nucleated RBC % 0.0 Absolute Neutrophils 13.03 H Absolute Lymphocytes 0.73 L Absolute Monocytes 1.49 H Absolute Eosinophils 0.05 Absolute Basophils 0.08 Sodium 136 Potassium 3.9 Chloride 105 Carbon Dioxide 24.3 Anion Gap 6.7 BUN 7 Creatinine 0.7 Estimated GFR/1.73 m2 >= 60.00 Glucose 89 Calcium 7.4 L Iron 11 L TIBC 136 L Transferrin % Sat 8 L Ferritin Lactate Dehydrogenase Vitamin B12 Folate Patient ABO/Rh Antibody Screen 03/22/22 03/22/22 03/22/22 05:11 05:11 08:20 WBC RBC Hgb Hct MCV MCH MCHC RDW Plt Count MPV Immature Gran % Neutrophils % Lymphocytes % Monocytes % Eosinophils % Basophils % Nucleated RBC % Absolute Neutrophils Absolute Lymphocytes Absolute Monocytes Absolute Eosinophils Absolute Basophils Sodium Potassium Chloride Carbon Dioxide Anion Gap BUN Creatinine Estimated GFR/1.73 m2 Glucose Calcium Iron TIBC Transferrin % Sat Ferritin 639 H Lactate Dehydrogenase 240 H Vitamin B12 > 2000 H Folate 16.3 Patient ABO/Rh A Positive Antibody Screen NEGATIVE Reviewed Pertinent PMH: Yes
[2022-03-22] MEDS: lamoTRIgine 100 MG TAB 200 MG PO ×2 (10:13→20:06)
[2022-03-22] MEDS: Ferrous Gluconate 324 MG TAB PO (10:13)
[2022-03-22] MEDS: Ascorbic Acid 500 MG TAB PO (10:13)
[2022-03-22] MEDS: Sertraline 100 MG TAB PO ×2 (11:17→20:06)
[2022-03-22] MEDS: Normal Saline Flush 10 ML SYR IVP (11:18)
[2022-03-22 11:51] VITALS: BP 96/62; PULSE 96; RESP 18; TEMP 36.7; O2SAT 98
[2022-03-22] MEDS: buPROPion-XL 150 MG TABCR PO (12:21)
[2022-03-22] MEDS: buPROPion-CR 100 MG TABCR PO (12:21)
[2022-03-22 13:59] LABS: HCT 27.4 % (36.0-46.0); HGB 8.7 g/dL (11.2-15.7)
[2022-03-22 15:34] VITALS: BP 99/61; PULSE 101; RESP 18; TEMP 37.8; O2SAT 96
[2022-03-22] MEDS: MORPHine 2 MG/ML SYR IVP (16:43)
[2022-03-22] MEDS: Pantoprazole 40 MG TABCR PO (18:44)
[2022-03-22 19:56] VITALS: BP 114/72; PULSE 101; RESP 20; TEMP 38.2; O2SAT 98
[2022-03-22 20:06] VITALS: TEMP 38.2
[2022-03-22] MEDS: Acetaminophen 325 MG TAB 650 MG PO (20:06)
[2022-03-23] VITALS (7 sets, daily range): BP systolic 96–125; BP diastolic 55–74; PULSE 86–102; RESP 16–23; TEMP 36.6–38.2; O2SAT 92–95
--- NOTE | 2022-03-23 | DI.RAD_ITS ---
Exam(s) XR CHEST 2V PA LATERAL EXAM: XR CHEST 2V PA LATERAL CLINICAL HISTORY: cough, shortness of breath TECHNIQUE: 2D digital imaging was performed. COMPARISON: CT CT RENAL COLIC WO from 03/20/2022 FINDINGS: MEDIASTINUM: Normal. HEART: Normal. PULMONARY VASCULATURE: Normal. LUNGS: Bibasilar infiltrates. PLEURAL SPACE: The small bilateral pleural effusions. No pneumothorax. BONE:Unremarkable for age. IMPRESSION: Bibasilar infiltrates and small bilateral pleural effusions. DATA REPOSITORY: RADIATION DOSE DELIVERED:
[2022-03-23] MEDS: PIPERACILLIN/TAZO 3.375 GM in Normal Saline 50 ML IVPB (00:06)
[2022-03-23] MEDS: Normal Saline 1,000 ML 150 ML IV ×2 (02:26→08:52)
[2022-03-23 06:36] LABS: Abs Immature Grans 0.03 10^3/uL (0.0-0.06); Absolute Basophil Count 0.07 10^3/uL (0.0-0.2); Absolute Eosinophil Count 0.09 10^3/uL (0.0-0.7); Absolute Lymphocyte Count 0.71 10^3/uL (1.2-3.4); Absolute Monocyte Count 0.91 10^3/uL (0.1-0.8); Absolute Neutrophil Count 6.64 10^3/uL (1.2-6.7); Basophils % 0.8; Eosinophils % 1.1; HCT 26.8 % (36.0-46.0); HGB 8.5 g/dL (11.2-15.7); Immature Grans % 0.4; Lymphocytes % 8.4; MCH 30.2 pg (27.0-33.0); MCHC 31.7 % (32.0-36.0); MCV 95 fL (80-95); MPV 10.7 fL (8.0-11.0); Monocytes % 10.8; Neutrophils % 78.5; Platelet Count 276 10^3/uL (130-400); RBC 2.81 10^6/uL (3.93-5.22); RDW-SD 49.4 fL; WBC 8.45 10^3/uL (4.4-10.8)
[2022-03-23] MEDS: MORPHine 2 MG/ML SYR IVP (07:38)
[2022-03-23] MEDS: buPROPion-CR 100 MG TABCR PO (07:39)
[2022-03-23] MEDS: Sertraline 100 MG TAB PO ×2 (07:39→20:20)
[2022-03-23] MEDS: Pantoprazole 40 MG TABCR PO (07:39)
[2022-03-23] MEDS: buPROPion-XL 150 MG TABCR PO (07:39)
[2022-03-23] MEDS: Polyethylene Glycol 3350 17 GM PACKET PO (07:39)
[2022-03-23] MEDS: Ascorbic Acid 500 MG TAB PO (07:39)
[2022-03-23] MEDS: lamoTRIgine 100 MG TAB 200 MG PO ×2 (07:39→20:20)
[2022-03-23] MEDS: Ferrous Gluconate 324 MG TAB PO (07:39)
[2022-03-23] MEDS: cefTRIAXone 1 GM/50 ML BAG IVPB (08:51)
--- NOTE | 2022-03-23 10:42 | W.PM.PROGNOT ---
Date of Service Date of service: 03/23/22 Time of Service: 09:42 Assessment and Plan Assessment and plan (1) Fever: Status: Acute Assessment and plan: with new cough and runny nose repeat covid, cxr pending repeat blood and urine cultures (2) Pyelonephritis, acute: Start date: 03/20/22 Status: Acute Assessment and plan: zosyn was down stepped to ceftriaxone day 12/29 blood and urine cultures growing pansensitive e coli repeat cultures from 03/22 have been negative today she is still running fever, which could be another infection so will reculture today continue pain management (3) Renal lithiasis: Start date: 03/20/22 Status: Acute Assessment and plan: Urology was consulted, no further interventions at this time. she can follow outpatient (4) Constipation: Start date: 03/20/22 Status: Chronic Assessment and plan: continue aggressive bowel management. will add relistor today mag citrate if not effective. (5) Major depression, chronic: Assessment and plan: This is a chronic problem the patient on 3 antidepressants may contribute to her constipation. Review and continue her outpatient medical therapy. This was not originally on her medication list. (6) Anemia: Status: Chronic Assessment and plan: iron deficiency, poor nutritional status. will add IV supplementation stools negative for OB hemoglobin drop likely dilutional also as she was dehydrated on admission. (7) Discharge planning issues: Status: Acute Assessment and plan: anticipate discharge to home with no services. discussed with Dr Velazquez Subjective Subjective Patient reports: still having pain, tolerating liquids well and fever; denies tolerating a regular diet or shortness of breath Interval history since last seen: still c/o constipation with bloating, small stooling. she reports blood streaks in her stool but stool OB has been negative. she is still running fevers but has been lying on a heating pad for her back pain. she states appetite poor but drinking fluids well. she reports runny nose and cough overnight which is new symptoms multiple complaints regarding her stay where ED stretcher was left in upright position too long, med surg staff trying to administer codeine despite her having an allergy (not listed as allergy), not happy about pain management. Exam Const General: cooperative and ill appearing chronically Nutritional Appearance: thin Orientation: alert, awake and oriented x3 HENMT Head: normal to inspection, normocephalic and atraumatic Mouth: oral mucosae normal Chest Chest: normal inspection of the chest Resp Effort & Inspection: normal respiratory effort Auscultation: clear to auscultation bilaterally Cardio Rate: regular rate Rhythm: regular rhythm GI Inspection: normal to inspection Palpation: soft Auscultation: normal bowel sounds Skin General skin exam: no rashes or lesions noted Neuro General: patient alert, patient awake, patient oriented x3 and no focal motor deficits Cognition: normal cognition Speech: speech normal Extrem General: normal to inspection, full ROM and no pedal edema Psych Mood: irritable mood Affect: irritable affect Objective Last Vital Signs Temp 38.2 C H 03/23/22 07:30 Pulse 102 H 03/23/22 07:30 Resp 23 03/23/22 07:30 BP 117/73 03/23/22 07:30 Pulse Ox 92 03/23/22 07:30 Laboratory Results - last 24 hr 03/22/22 03/22/22 03/22/22 13:00 13:55 19:45 WBC RBC Hgb 8.7 L Hct 27.4 L MCV MCH MCHC RDW Plt Count MPV Immature Gran % Neutrophils % Lymphocytes % Monocytes % Eosinophils % Basophils % Nucleated RBC % Absolute Neutrophils Absolute Lymphocytes Absolute Monocytes Absolute Eosinophils Absolute Basophils Stl Occult Bld Clinic Cancelled Cancelled 03/23/22 06:10 WBC 8.45 RBC 2.81 L Hgb 8.5 L Hct 26.8 L MCV 95 MCH 30.2 MCHC 31.7 L RDW 14.0 Plt Count 276 MPV 10.7 Immature Gran % 0.4 Neutrophils % 78.5 Lymphocytes % 8.4 Monocytes % 10.8 Eosinophils % 1.1 Basophils % 0.8 Nucleated RBC % 0.0 Absolute Neutrophils 6.64 Absolute Lymphocytes 0.71 L Absolute Monocytes 0.91 H Absolute Eosinophils 0.09 Absolute Basophils 0.07 Stl Occult Bld Clinic
[2022-03-23 11:01] LABS: Source Nasal/Nares
[2022-03-23] MEDS: Acetaminophen 325 MG TAB 650 MG PO ×3 (11:24→20:20)
[2022-03-23 11:25] LABS: Bilirubin Negative (Negative); Blood Trace-intact (Negative); Clarity Clear (Clear); Glucose Negative (Negative); Ketones Negative (Negative); Leukocyte Esterase Trace (Negative); Nitrite Negative (Negative); Specific Gravity 1.025 (1.005-1.025); Urobilinogen 0.2 EU/dL (Up TO 0.2); pH 6.5 (5-8)
[2022-03-23 11:31] LABS: Bacteria Rare HPF (Negative); C & S Indicated? No/Sq. Contamination; Casts Negative LPF (Negative); Crystals Negative HPF (Negative); Epithelial Cells Many HPF (Negative); Mucus Negative (Negative); RBC 0-2 HPF (0-2); WBC 0-2 HPF (0-5)
[2022-03-23 11:37] LABS: C-Reactive Protein 14.41 mg/dL (0.0-0.3)
[2022-03-23 12:02] LABS: COVID-19 PCR Negative (Negative)
[2022-03-23] MEDS: IRON SUCROSE COMPLEX 200 MG in Normal Saline 100 ML 400 MG IVPB (14:13)
--- NOTE | 2022-03-23 16:55 | PDOC.CMPRO ---
- If Service Date Differs Date of service: 03/23/22 Time of Service: 16:56 Care Management Progress Note S/O: Per report, Paula remains on IV abx for pyelonephritis. Her repeat blood/urine cultures were negative, but she was still febrile, therefore they are being repeated again. Per Rn, her pain has been well controlled today, although she stated that her legs are feeling swollen. Her RN applied TEDs, which she is agreeable to. CM will continue to follow. A: Paula is a 41 year old female admitted to [facility] on 03/21/22 for right pyelonephritis. P: Paula will likely discharge home with no new services. She will follow up with her PCP and Urology and transport with family. CM will continue to support and assess for discharge concerns.
[2022-03-24 03:32] VITALS: BP 102/61; PULSE 87; RESP 20; TEMP 36.7; O2SAT 96
[2022-03-24 07:02] LABS: Abs Immature Grans 0.03 10^3/uL (0.0-0.06); Absolute Basophil Count 0.06 10^3/uL (0.0-0.2); Absolute Lymphocyte Count 1.17 10^3/uL (1.2-3.4); Absolute Monocyte Count 0.97 10^3/uL (0.1-0.8); Absolute Neutrophil Count 5.16 10^3/uL (1.2-6.7); Basophils % 0.8; Eosinophils % 2.6; HCT 29.8 % (36.0-46.0); HGB 9.5 g/dL (11.2-15.7); Immature Grans % 0.4; Lymphocytes % 15.4; MCHC 31.9 % (32.0-36.0); MCV 94 fL (80-95); MPV 10.5 fL (8.0-11.0); Monocytes % 12.8; Platelet Count 340 10^3/uL (130-400); RBC 3.17 10^6/uL (3.93-5.22); RDW 14.2 % (11.7-14.6); RDW-SD 49.2 fL; WBC 7.59 10^3/uL (4.4-10.8)
[2022-03-24 07:12] LABS: Anion Gap 6.4 mmol/L (3-11); BUN 4 mg/dL (7-18); CO2 26.6 mmol/L (21.0-32.0); CREATININE 0.7 mg/dL (0.55-1.02); Calcium 8.1 mg/dL (8.5-10.1); Chloride 109 mmol/L (98-107); Glucose 75 mg/dL (74-106); Potassium 3.7 mmol/L (3.5-5.1); Sodium 142 mmol/L (136-145)
[2022-03-24 07:15] VITALS: BP 116/77; PULSE 90; RESP 18; TEMP 37.1; O2SAT 95
[2022-03-24 08:12] LABS: Lab Add On Test DONE
[2022-03-24 08:21] LABS: C-Reactive Protein 9.37 mg/dL (0.0-0.3)
[2022-03-24] MEDS: buPROPion-XL 150 MG TABCR PO (08:53)
[2022-03-24] MEDS: Sertraline 100 MG TAB PO ×2 (08:53→20:17)
[2022-03-24] MEDS: buPROPion-CR 100 MG TABCR PO (08:53)
[2022-03-24] MEDS: Ferrous Gluconate 324 MG TAB PO (08:56)
[2022-03-24] MEDS: lamoTRIgine 100 MG TAB 200 MG PO ×2 (09:00→20:17)
[2022-03-24] MEDS: Ascorbic Acid 500 MG TAB PO (09:00)
[2022-03-24] MEDS: Pantoprazole 40 MG TABCR PO (09:00)
[2022-03-24 09:01] LABS: Procalcitonin 0.3 ng/mL
[2022-03-24] MEDS: Normal Saline Flush 10 ML SYR IVP ×2 (09:01→10:50)
[2022-03-24] MEDS: cefTRIAXone 2 GM/50 ML BAG IVPB (09:02)
[2022-03-24 11:48] VITALS: BP 110/70; PULSE 89; RESP 16; TEMP 36.6; O2SAT 96
--- NOTE | 2022-03-24 12:49 | CMPROGNOTE_ITS ---
- If Service Date Differs Date of service: 03/24/22 Time of Service: 12:49 Care Management Progress Note S/O: Paula was sitting up in a chair eating lunch when CM met with her. She stated that she is feeling much better today than she has been. She reported that she is no longer attached to an IV around the clock, which has improved the quality of her stay, including the ability to move more freely, walk the halls, and sleep better. She stated that she is looking forward to returning erick e, and is agreeable to oral antibiotics, if a course of treatment can be identified. She stated that she would also be agreeable to returning to the infusion room daily if she continued to require IV antibiotics. Per report, she will likely remain on IV antibiotics for 1-2 days, and then she may be ready to transition to oral medications, at which point she will likely be discharge ready. CM will continue to follow. A: Paula is a 41 year old female admitted to [facility] on 03/21/22 for right pyelonephritis. P: Paula will likely discharge home with no new services. She will follow up with her PCP and Urology and transport with family. CM will continue to support and assess for discharge concerns.
--- NOTE | 2022-03-24 14:53 | W.PM.PROGNOT ---
Date of Service Date of service: 03/24/22 Time of Service: 14:53 Assessment and Plan Assessment and plan (1) Fever: Status: Resolved Assessment and plan: repeat covid, cxr negative repeat blood and urine cultures negative to date. inflammatory markers improving (2) Pyelonephritis, acute: Start date: 03/20/22 Status: Acute Assessment and plan: Continue ceftriaxone day 4/14 blood and urine cultures growing pansensitive e coli repeat cultures from 03/22 have been negative today (3) Renal lithiasis: Start date: 03/20/22 Status: Acute Assessment and plan: Urology was consulted, no further interventions at this time. she can follow outpatient (4) Constipation: Start date: 03/20/22 Status: Chronic Assessment and plan: having watery stools now, stop scheduled bowel meds (5) Major depression, chronic: Assessment and plan: This is a chronic problem the patient on 3 antidepressants may contribute to her constipation. Review and continue her outpatient medical therapy. This was not originally on her medication list. (6) Anemia: Status: Chronic Assessment and plan: iron deficiency, poor nutritional status. continue supplementation stools negative for OB hemoglobin drop likely dilutional also as she was dehydrated on admission. (7) Discharge planning issues: Status: Acute Assessment and plan: anticipate discharge to home with no services tomorrow after her am dose of ceftriaxone. discussed with Dr Zuniga Subjective Subjective Patient reports: no new complaints, feels better, pain is less, tolerating liquids well, tolerating a regular diet, diarrhea and afebrile; denies shortness of breath Interval history since last seen: c/o peripheral edema, walking in the [place], no further fever with max temp of 37.1 overnight. Exam Const General: cooperative Nutritional Appearance: thin Orientation: alert, awake and oriented x3 [facility] Head: normal to inspection, normocephalic and atraumatic Mouth: oral mucosae normal Chest Chest: normal inspection of the chest Resp Effort & Inspection: normal respiratory effort Auscultation: clear to auscultation bilaterally Cardio Rate: regular rate Rhythm: regular rhythm GI Inspection: normal to inspection Palpation: soft Auscultation: normal bowel sounds Skin General skin exam: no rashes or lesions noted Neuro General: patient alert, patient awake, patient oriented x3 and no focal motor deficits Cognition: normal cognition Speech: speech normal Extrem General: normal to inspection and full ROM Objective Last Vital Signs Temp 36.6 C 03/24/22 11:48 Pulse 89 03/24/22 11:48 Resp 16 03/24/22 11:48 BP 110/70 03/24/22 11:48 Pulse Ox 96 03/24/22 11:48 Laboratory Results - last 24 hr 03/24/22 03/24/22 03/24/22 06:20 06:20 06:20 WBC 7.59 RBC 3.17 L Hgb 9.5 L Hct 29.8 L MCV 94 MCH 30.0 MCHC 31.9 L RDW 14.2 Plt Count 340 MPV 10.5 Immature Gran % 0.4 Neutrophils % 68.0 Lymphocytes % 15.4 Monocytes % 12.8 Eosinophils % 2.6 Basophils % 0.8 Nucleated RBC % 0.0 Absolute Neutrophils 5.16 Absolute Lymphocytes 1.17 L Absolute Monocytes 0.97 H Absolute Eosinophils 0.20 Absolute Basophils 0.06 Sodium 142 Potassium 3.7 Chloride 109 H Carbon Dioxide 26.6 Anion Gap 6.4 BUN 4 L Creatinine 0.7 Estimated GFR/1.73 m2 >= 60.00 Glucose 75 Calcium 8.1 L C-Reactive Protein Procalcitonin Add-On Test Request DONE 03/24/22 03/24/22 06:20 06:20 WBC RBC Hgb Hct MCV MCH MCHC RDW Plt Count MPV Immature Gran % Neutrophils % Lymphocytes % Monocytes % Eosinophils % Basophils % Nucleated RBC % Absolute Neutrophils Absolute Lymphocytes Absolute Monocytes Absolute Eosinophils Absolute Basophils Sodium Potassium Chloride Carbon Dioxide Anion Gap BUN Creatinine Estimated GFR/1.73 m2 Glucose Calcium C-Reactive Protein 9.37 H Procalcitonin 0.3 Add-On Test Request
[2022-03-24 15:06] VITALS: BP 114/73; PULSE 99; RESP 18; TEMP 36.9; O2SAT 97
[2022-03-24] MEDS: Acetaminophen 325 MG TAB 650 MG PO ×2 (15:35→20:17)
[2022-03-24 19:45] VITALS: BP 99/67; PULSE 91; RESP 18; TEMP 36.5; O2SAT 96
[2022-03-24 22:40] VITALS: BP 109/72; PULSE 83; RESP 18; TEMP 36.9; O2SAT 94
[2022-03-25 03:15] VITALS: BP 123/77; PULSE 89; RESP 18; TEMP 37.1; O2SAT 93
[2022-03-25 07:00] LABS: Abs Immature Grans 0.07 10^3/uL (0.0-0.06); Absolute Eosinophil Count 0.28 10^3/uL (0.0-0.7); Absolute Lymphocyte Count 1.45 10^3/uL (1.2-3.4); Absolute Monocyte Count 1.27 10^3/uL (0.1-0.8); Eosinophils % 2.8; HCT 27.3 % (36.0-46.0); HGB 8.8 g/dL (11.2-15.7); Immature Grans % 0.7; Lymphocytes % 14.3; MCH 30.1 pg (27.0-33.0); MCHC 32.2 % (32.0-36.0); MCV 94 fL (80-95); MPV 10.4 fL (8.0-11.0); Monocytes % 12.5; Neutrophils % 68.7; Platelet Count 394 10^3/uL (130-400); RBC 2.92 10^6/uL (3.93-5.22); RDW-SD 47.9 fL; WBC 10.17 10^3/uL (4.4-10.8)
[2022-03-25 07:17] LABS: ALT 32 U/L (14-59); AST 27 U/L (15-37); Alkaline Phosphatase 133 U/L (46-116); Anion Gap 8.4 mmol/L (3-11); BUN 5 mg/dL (7-18); Bilirubin, Total 0.3 mg/dL (0.2-1.0); C-Reactive Protein 7.53 mg/dL (0.0-0.3); CO2 27.6 mmol/L (21.0-32.0); CREATININE 0.6 mg/dL (0.55-1.02); Calcium 8.3 mg/dL (8.5-10.1); Chloride 107 mmol/L (98-107); Glucose 76 mg/dL (74-106); Potassium 3.4 mmol/L (3.5-5.1); Sodium 143 mmol/L (136-145); Total Protein 5.7 g/dL (6.4-8.2)
[2022-03-25 07:22] VITALS: BP 117/73; PULSE 83; RESP 18; TEMP 37.3; O2SAT 93
[2022-03-25] MEDS: buPROPion-CR 100 MG TABCR PO (08:37)
[2022-03-25] MEDS: buPROPion-XL 150 MG TABCR PO (08:37)
[2022-03-25] MEDS: Acetaminophen 325 MG TAB 650 MG PO (08:37)
[2022-03-25] MEDS: Normal Saline Flush 10 ML SYR IVP (08:37)
[2022-03-25] MEDS: Sertraline 100 MG TAB PO (08:37)
[2022-03-25] MEDS: Ferrous Gluconate 324 MG TAB PO (08:37)
[2022-03-25] MEDS: cefTRIAXone 2 GM/50 ML BAG IVPB (08:37)
[2022-03-25] MEDS: lamoTRIgine 100 MG TAB 200 MG PO (08:38)
[2022-03-25] MEDS: Pantoprazole 40 MG TABCR PO (08:38)
[2022-03-25] MEDS: Ascorbic Acid 500 MG TAB PO (08:38)
[2022-03-25] MEDS: Docusate Sodium 100 MG CAP PO (08:41)
--- NOTE | 2022-03-25 09:13 | DSE_ITS ---
Date of service: 03/25/22 Time of Service: 09:13 DS: Diagnosis Discharge Diagnosis (1) Fever: Status: Resolved (2) Pyelonephritis, acute: Status: Acute (3) Renal lithiasis: Status: Acute (4) Constipation: Status: Chronic (5) Major depression, chronic: (6) Anemia: Status: Chronic Discharge Plan Disposition Patient Disposition: HOME Condition: Stable Discharge Details Reason For Visit: Right Pyelonephritis Admit Date/Time: 03/21/22 00:27 Admit Provider: Wolf Maddox Attending Provider: Wolf Maddox Primary Care Provider: Kerrie,Local Hospital Course Hospital Course: This is a 41 year old female who presented to the ED for evaluation of recurrent UTI symptoms and right sided flank pain. She states that she had initial onset of symptoms a few weeks ago, and was seen at another facility and diagnosed with UTI, pyelonephritis, kidney stone and treated with oral Macrobid x 1wk. She reports that this initially helped with her symptoms but that 2 days after stopping the antibiotics, her symptoms began again. Her work up included blood cultures which did grow the same montilla sensitive e coli that was growing in her urine. She was started on ceftriaxone and treated with 2 gm IV for 4 days while inpatient. She initially continue to have fevers for up to 48 hours but has been afebrile since. Her repeat blood cultures from 03/22/22 has been with no growth. She is hemodynamically stable and tolerating PO. Her hospital course was complicated with severe constipation and she received aggressive bowel regimen which resulted in diarrhea which has resolved at time of discharge. She resumed colace accordingly. She was given oral potassium and magnesium as levels 3.4 and 1.6 accordingly, thought d/t diarrhea. She also take daily MVI that she will at discharge. She also was found to have a drop in her H&H, negative stool for occult blood and severe iron deficiency. She was given IV iron replacement and will resume oral iron on discharge. The drop was most likely dilutional and concentrated on admission d/t dehydration. She will be discharged on Levaquin for 10 more days to complete a 14 day course from negative culture date of 03/22. She should follow up outpatient with pcp and urology regarding 3 mm nonobstructive right renal stone. no definite ureteral stones noted. She is discharged to home with no services by private vehicle. discharge discussed with Dr Zuniga Home Meds and New Rx's Prescriptions: New levofloxacin 750 mg tablet 750 mg PO DAILY Qty: 10 0RF Continued lamotrigine [Lamictal] 200 mg Tablet 200 mg PO BID sertraline [Zoloft] 100 mg Tablet 100 mg PO BID pravastatin 40 mg Tablet 40 mg ascorbic acid (vitamin C) 100 mg Tablet See Rx Instructions .ROUTE .COMPLEX Rx Instructions: UNKNOWN DOSE Zn-pyg [id number] palmet Capsule PO Rx Instructions: UNKNOWN DOSE dextroamphetamine-amphetamine [Adderall] 5 mg Tablet 5 mg PO BID ferrous gluconate 225 mg (27 mg iron) Tablet See Rx Instructions .ROUTE .COMPLEX Rx Instructions: UNKNOWN DOSE B12 Active 1,000 mcg Tablet,Chewable PO bupropion HCl 100 mg Tablet Sustained-Release 12 Hr 100 mg PO DAILY Rx Instructions: TAKE WITH 150 MG CAP FOR TOTAL OF 250MG PER DAY bupropion HCl 150 mg Tablet Extended Release 24 Hr 150 mg PO DAILY Rx Instructions: TAKE WITH 100 MG FOR TOTAL OF 250 MG PER DAY Discharge Instructions Instructions: Kidney Infection (DC) Additional Instructions: finish antibiotics as directed even if you feel better Stand Alone Forms: Nursing Discharge Form Referrals: No,Local [Primary Care Provider] - 04/03/22 9:00 am () Jorge Belle MD [ [facility] STAFF PHYSICIAN] - (Dr Belle's office will call you for an appointment ) Activity:: Activity as Tolerated Equipment/Supplies:: No Equipment Needed Diet:: As Tolerated Discharge Orders Discharge Orders: Discharge Order (Routine); Ordered 03/25/22 Ordered By: Joan Douglas DS: Summary Time Spent with Patient providing and/or coordinating discharge services: Greater than 30 minutes Status at Discharge Functional status at discharge: independent ambulation Overall status at discharge: patient is progressing back to baseline Mental Status: mental status grossly normal Speech and Movement: speech and movement normal Mood: irritable mood (negativity regarding visit, fluid gain, not on supplements, stretcher in ED) Affect: blunted (flat affect) Exam Const General: cooperative Nutritional Appearance: thin Orientation: alert, awake and oriented x3 [facility] Head: normal to inspection, normocephalic and atraumatic Mouth: oral mucosae normal Chest Chest: normal inspection of the chest Resp Effort & Inspection: normal respiratory effort Auscultation: clear to auscultation bilaterally Cardio Rate: regular rate Rhythm: regular rhythm GI Inspection: normal to inspection Palpation: soft Auscultation: normal bowel sounds Skin General skin exam: no rashes or lesions noted Neuro General: patient alert, patient awake, patient oriented x3 and no focal motor deficits Cognition: normal cognition Speech: speech normal Extrem General: normal to inspection and full ROM Psych Mental Status: mental status grossly normal Speech and Movement: speech and movement normal Mood: irritable mood (negativity regarding visit, fluid gain, not on supplements, stretcher in ED) Affect: blunted (flat affect) DS: Data Vitals/I&O Vitals and I&O: Vital Signs Temperature 37.3 C 03/25/22 07:22 Temperature Source Tympanic 03/25/22 07:22 Pulse 83 03/25/22 07:22 Pulse Rhythm Regular 03/25/22 03:00 Pulse 103 H 03/21/22 01:01 Respiratory Rate 18 03/25/22 07:22 Respiratory Effort 03/25/22 03:00 Respiratory Depth Normal 03/25/22 03:00 Respiratory Pattern Normal 03/25/22 03:00 Blood Pressure 117/73 03/25/22 07:22 Blood Pressure Mean 65 03/21/22 01:01 Blood Pressure Position Supine 03/20/22 20:09 Pulse Oximetry 93 03/25/22 07:22 Oxygen Delivery Method Room Air 03/25/22 07:22 Oxygen Flow Rate 0 03/25/22 07:22 Pain Level 0 03/25/22 08:37 Comment 03/24/22 22:40 Intake & Output 03/24/22 03/24/22 03/25/22 11:59 23:59 11:59 Intake Total 410 / 770 360 / 770 600 / 600 Output Total 1300 / 3200 1900 / 3200 800 / 800 Balance -890 / -2430 -1540 / -2430 -200 / -200 Intake: IV 50 / 50 Oral 360 / 720 360 / 720 600 / 600 Output: Urine 1300 / 3200 1900 / 3200 800 / 800 Other: Urine Color Straw Yellow Yellow Urine Appearance Clear Clear Clear Urine Odor None None Normal Comment pT stated that she has been to the bathroom several times. pT goes to the bathroom independently. Voiding Methods Toilet Toilet Toilet Data Completed and Pending Labs on day of discharge: Labs from last 24 hours 03/25/22 03/25/22 06:20 06:20 WBC 10.17 RBC 2.92 L Hgb 8.8 L Hct 27.3 L MCV 94 MCH 30.1 MCHC 32.2 RDW 14.0 Plt Count 394 MPV 10.4 Immature Gran % 0.7 Neutrophils % 68.7 Lymphocytes % 14.3 Monocytes % 12.5 Eosinophils % 2.8 Basophils % 1.0 Nucleated RBC % 0.0 Absolute Neutrophils 7.00 H Absolute Lymphocytes 1.45 Absolute Monocytes 1.27 H Absolute Eosinophils 0.28 Absolute Basophils 0.10 Sodium 143 Potassium 3.4 L Chloride 107 Carbon Dioxide 27.6 Anion Gap 8.4 BUN 5 L Creatinine 0.6 Estimated GFR/1.73 m2 >= 60.00 Glucose 76 Calcium 8.3 L Total Bilirubin 0.3 AST 27 ALT 32 Alkaline Phosphatase 133 H C-Reactive Protein 7.53 H Total Protein 5.7 L Albumin 2.0 L Preliminary micro results at discharge 03/22/22 05:11 Blood Culture - Preliminary Blood NO GROWTH 72 HOURS 03/22/22 05:00 Blood Culture - Preliminary Blood NO GROWTH 72 HOURS 03/23/22 11:20 Blood Culture - Preliminary Blood NO GROWTH 24 HOURS 03/23/22 11:10 Blood Culture - Preliminary Blood NO GROWTH 24 HOURS 03/20/22 22:22 Blood Culture - Preliminary Blood Escherichia coli 03/20/22 22:29 Blood Culture - Preliminary Blood Escherichia coli PFSH All Active Problems (Updated 03/24/22 @ 15:02 by Joan Douglas NP) Discharge planning issues (Acute) Anemia (Chronic) Constipation (Chronic) Renal lithiasis (Acute) Pyelonephritis, acute (Acute) Medical History (Updated 03/24/22 @ 15:02 by Joan Douglas NP) Major depression, chronic Family History (Updated 03/21/22 @ 01:32 by Wolf Maddox) Other Family history non-contributory Social History Smoking/Tobacco Use Status: Never Smoking risk assessment performed?: Yes Alcohol Intake: never Drug use: Never Substance use type: does not use Do you feel safe at home: Yes Do you feel safe in your relationship?: Yes
[2022-03-25 09:46] LABS: Magnesium 1.6 mg/dL (1.8-2.4)
[2022-03-25] MEDS: Magnesium Oxide 400 MG TAB PO (10:24)
[2022-03-25] MEDS: Potassium Chloride 20 MEQ TABCR 40 MEQ PO (10:24)
--- NOTE | 2022-03-25 12:19 | PDOC.CMDIS ---
- If Service Date Differs Date of service: 03/25/22 Time of Service: 12:19 LACE Index Scoring Tool - Questions: Length of Stay (in days): 4 - 6 Acuity (Admit via E.D.?): Yes E.D. Visits: 1 - Answers: Total Score: 8 Risk of Readmission: Low Risk Care Management Discharge Reason for Hospitalization: Pyelonephritis Discharge Plan: Paula returned home today with no new services. Her boyfriend drove her home via private vehicle. She will follow up with her PCP and discharge plan of care. She was happy to be going home. Patient/Family Education Needs: Review discharge instructions and limitations, discussion of self care needs including ask me three.
== END 2022-03-25 11:23 | disposition home or self-care (01) | DRG 872 ==
LOC: ER 20:08 → MS 03-21 01:17
PROVIDERS: Internal Medicine; Nurse Practitioner Acute Care; Nurse Practitioner Family; Student in an Organized Health Care Education/Training Program; Admitting Provider Family Medicine; Emergency Provider Physician Assistant; Visit Provider Family Medicine
DX: A41.51 Sepsis due to Escherichia coli [E. coli] (principal); N10 Acute pyelonephritis; N20.0 Calculus of kidney; K59.00 Constipation, unspecified; F32.9 Major depressive disorder, single episode, unspecified; E86.0 Dehydration; D50.9 Iron deficiency anemia, unspecified; Z87.442 Personal history of urinary calculi
CPT/HCPCS: 36410; 36415; 80048; 80053; 84145; 86850; 86900; 86901; 87040; 87077; 87635; 71046; 74176; 81003; 81015; 82272; 82607; 82728; 82746; 83540; 83550; 83615; 83735; 85014; 85018; 85025; 86140; 87186; 99223; 99232; 99233; 99239; J0696; J1644; J1756; J1885; J2270; J2543

== ENCOUNTER 2024-10-02 18:49 | Outpatient (REF) | payer BC, SELFPAY ==
--- OUTSIDE RECORDS SUMMARY | 2024-10-02 18:51 | XMS_ITS | Encounter Summary ---
Author Organization [facility] Address [address] [place] [address] Care Team Providers Care Computer Programming Supervisor Name Role Phone Unavailable Primary Care Provider Unavailabl e Encounter Details Date Type Department Care Team (Late st Contact Info) Description 05/28/2023 Results Only [facility] [place] [address] Preet Hale MD [address] [place] [phone] Social History Tobacco Use Types Packs/Day Years Used Date Smoking Tobacco: Never Assessed Comments Unknown Sex and Gender Information Value Date Recorded Sex Assigned at Not on file Legal Sex Female 18:24 EST Gender Identity Female 11/22/2023 12:49 EST Sexual Orientation Not on file documented as of this encounter Plan of Treatment Not on file documented as of this encounter Procedures Procedure Name Priority Date/Time Associated Diagnosis Comments COMPLETE BLOOD COUNT WITH DIFFERENTIAL (AUTO) Routine 03/24/2024 11:29 EDT documented in this encounter Results * (ABNORMAL) COMPLETE BLOOD COUNT WITH DIFFERENTIAL (AUTO) (03/24/2024 11:29 EDT) WBC 6.2 4.0 - 12.4 x10e3/uL [facility] Lymphocytes 37.7 % [facility] Monocytes 10.5 % [facility] Lymph # 2.33 1.09 - 3.30 x10e3/uL [facility] Grundy # 0.65 0.10 - 0.80 x10e3/uL [facility] RBC 3.69(L) 3.86 - 5.04 x10e6/uL [facility] HGB 11.4(L) 11.6 - 15.2 g/dL [facility] HCT 35.3 34.9 - 44.4 % [facility] MCV 95.7 81.0 - 98.0 fL [facility] MCH 30.9 26.7 - 33.3 pg [facility] MCHC 32.3 32.1 - 35.9 g/dL [facility] RDW 12.3 <14.7 % [facility] PLT 321 141 - 377 x10e3/uL [facility] MPV 10.8 9.5 - 12.7 fL [facility] Absolute Neutrophil 3.05 2.20 - 8.85 x10e3/uL [facility] Neutrophils 49.4 % [facility] Eosinophils 1.9 % [facility] Eosinophils Absolute 0.12 0.03 - 0.61 x10e3/uL [facility] Basophils 0.5 % [facility] Basophils Absolute 0.03 0.01 - 0.11 x10e3/uL [facility] Immature Granulocytes 0.0 % [facility] Immature Granulocytes Absolute 0.00 0.00 - 0.06 x10e3/uL [facility] RDW-SD 44.1 <50.4 fL [facility] 03/24/2024 11:2 9 EDT us Chyna [facility] PF[facility] ORDERABLES E dited Result - Final THE [address] [address] documented in this encounter Visit Diagnoses Not on filedocumented in this encounter
--- OUTSIDE RECORDS SUMMARY | 2024-10-02 18:51 | XMS_ITS | Encounter Summary ---
Author Organization [facility] Address [address] [place] [address] Care Team Providers Care Wood Boat Builder Supervisor Name Role Phone Unavailable Primary Care Provider Unavailabl e Reason for Referral * Radiology Services (Routine/Next Available) - Authorization Not Required Specialty Diagnoses / Procedures Referred By Caroline allen Referred To Contact Diagnoses Encounter for screening mammogram for malignant neoplasm of breast Procedures MA BREAST SCREENING GONZÁLEZ BILATERAL Preet Hale MD Phone: tel: fax: [facility] [place] Referral ID Status Reason Start Date Expiration Date Visits Requested Visits Authorized [id number] Authorization Not Required 10/25/2023 1 1 Reason for Visit * Radiology Services (Routine/Next Available) - Authorization Not Required Specialty Diagnoses / Procedures Referred By Caroline allen Referred To Contact Diagnoses Encounter for screening mammogram for malignant neoplasm of breast Procedures MA BREAST SCREENING GONZÁLEZ BILATERAL Preet Hale MD Phone: tel: fax: [facility] [place] Referral ID Status Reason Start Date Expiration Date Visits Requested Visits Authorized [id number] Authorization Not Required 10/25/2023 1 1 Encounter Details Date Type Department Care Team (Latest Contact Info) Description 11/22/2023 12:50 EST - 11/22/2023 23:59 EST Hospital Encounter [facility] [address] [place] [address] Encounter for screening mammogram for malignant neoplasm of breast Discharge Disposition: Home or Self Care Social History Tobacco Use Types Packs/Day Years Used Date Smoking Tobacco: Never Assessed Comments No Sex and Gender Information Value Date Recorded Sex Assigned at Not on file Legal Sex Female 18:24 EST Gender Identity Female 11/22/2023 12:49 EST Sexual Orientation Not on file documented as of this encounter Discharge Disposition Disposition Code Departure Means Destination Home or Self Care documented in this encounter Plan of Treatment Not on file documented as of this encounter Procedures Procedure Name Priority Date/Time Associated Diagnosis Comments MA BREAST SCREENING GONZÁLEZ BILATERAL Routine 11/22/2023 13:08 EST Encounter for screening mammogram for malignant neoplasm of breast documented in this encounter Results * MA BREAST SCREENING GONZÁLEZ BILATERAL (11/22/2023 13:08 EST) Anatomical Region Laterality Modality Breast Bilateral Mammography 11/22/2023 15:3 3 EST Impressions 11/22/2023 15:33 EST Negative, no evidence of malignancy. RECOMMENDATION: Routine screening mammography is recommended. OVERALL ASSESSMENT: BI-RADS 1: Negative These results will be communicated to your patient via a lay letter from Radiology. If any additional imaging is needed we will contact your patient directly. [id number] Narrative 11/22/2023 15:33 EST MA BREAST SCREENING GONZÁLZE BILATERAL ??11/22/2023 1:06 PM History: screening;Z12.31:Encounter for screening mammogram for malignant neoplasm of breast Comparison: ??This is the patient's baseline exam . ? Technique: Routine 3D tomosynthesis with synthesized 2D views with CAD Breast Composition: The breast tissue is heterogeneously dense, which may obscure small masses. Bilateral Breast Findings: ??No significant masses, calcifications or other abnormalities are seen. As there are no previous studies for comparison it would be advisable for the patient to have another mammogram in one year to be certain the breasts are stable. Procedure Note Alex Moreno MD - 11/22/2023 MA BREAST SCREENING GONZÁLEZ BILATERAL 11/22/2023 1:06 PM History: screening;Z12.31:Encounter for screening mammogram for malignantneoplasm of breast Comparison: This is the patient's baseline exam . Technique: Routine 3D tomosynthesis with synthesized 2D views with CAD Breast Composition: The breast tissue is heterogeneously dense, which mayobscure small masses. Bilateral Breast Findings: No significant masses, calcifications or otherabnormalities are seen. As there are no previous studies for comparison itwould be advisable for the patient to have another mammogram in one yearto be certain the breasts are stable. IMPRESSION Negative, no evidence of malignancy. RECOMMENDATION: Routine screening mammography is recommended. OVERALL ASSESSMENT: BI-RADS 1: Negative These results will be communicated to your patient via a lay letter fromRadiology. If any additional imaging is needed we will contact yourpatient directly. [id number] us Preet Hale MD IM MAMMOGRAPHY ORDERABLES Final Result documented in this encounter Visit Diagnoses Diagnosis Encounter for screening mammogram for malignant neoplasm of breast Other screening mammogram documented in this encounter
--- OUTSIDE RECORDS SUMMARY | 2024-10-02 18:51 | XMS_ITS | Encounter Summary ---
Author Organization [facility] Address [address] [place] [address] Care Team Providers Care [place] Consultant Name Role Phone Unavailable Primary Care Provider Unavailabl e Encounter Details Date Type Department Care Team (Late st Contact Info) Description 05/21/2023 Results Only [facility] Laboratory Services - [address] [address] Preet Hale MD [address] [place] [phone] Social History Tobacco Use Types Packs/Day [...] Procedure Name Priority Date/Time Associated Diagnosis Comments LIPID PROFILE (INCLUDES CHOLESTEROL, TRIGLYCERIDES, HDL, LDL) Routine 05/21/2023 14:16 EDT documented in this encounter Results * (ABNORMAL) LIPID PROFILE (INCLUDES CHOLESTEROL, TRIGLYCERIDES, HDL, LDL) (05/21/2023 14:16 EDT) Cholesterol 178.00 0.00 - 200.00 mg/dL [facility] dHDL 77.00(H) 40.00 - 60.00 mg/dL [facility] Triglycerides 42.00 0.00 - 150.00 mg/dL [facility] 05/21/2023 14:1 6 EDT us Preet Hale MD CHEMISTRY & BLOOD GAS ORDERABLES Final Result [facility] [address] [place] [address] documented in this encounter Visit Diagnoses Not on filedocumented in this encounter
--- OUTSIDE RECORDS SUMMARY | 2024-10-02 18:51 | XMS_ITS | Encounter Summary ---
Author Organization [facility] Address [address] [place] [address] Care Team Providers Care Engineering Supervisor Name Role Phone Unavailable Primary Care Provider Unavailabl e Encounter Details Date Type Department Care Team (Latest Contact Info) Description 04/14/2022 15:18 EDT - 04/14/2022 23:59 EDT Hospital Encounter [facility] Lab - Main [address] [address] Validation Analyst, [facility] Discharge Disposition: Home or Self Care Social [...] on file documented as of this encounter Visit Diagnoses Not on filedocumented in this encounter
--- OUTSIDE RECORDS SUMMARY | 2024-10-02 18:51 | XMS_ITS | Encounter Summary ---
Author Organization [facility] Address [address] [place] [address] Care Team Providers Care Architectural Manager Name Role Phone Unavailable Primary Care Provider Unavailabl e Encounter Details Date Type Department Care Team (Late st Contact Info) Description 05/21/2023 Results Only [facility] Laboratory Services - [facility] [address] [place] [address] Preet Hale MD [address] [place] [phone] Social History Tobacco Use Types Packs/Day [...] Procedure Name Priority Date/Time Associated Diagnosis Comments TSH Routine 05/21/2023 14:16 EDT documented in this encounter Results * TSH (05/21/2023 14:16 EDT) TSH 2.97 0.45 - 5.33 uIU/mL [facility] 05/21/2023 14:1 6 EDT us Preet Hale MD CHEMISTRY & BLOOD GAS ORDERABLES Final Result [facility] [address] [place] [address] documented in this encounter Visit Diagnoses Not on filedocumented in this encounter
--- OUTSIDE RECORDS SUMMARY | 2024-10-02 18:51 | XMS_ITS | Encounter Summary ---
Author Organization [facility] Address [address] [place] [address] Care Team Providers Care Dough Sheeter Name Role Phone Unavailable Primary Care Provider Unavailabl e Encounter Details Date Type Department Care Team (Late st Contact Info) Description 03/07/2020 Results Only [facility] Lab - Main [place] [address] [place], [place] [address] Preet Hale MD [address] [place] [phone] Social History Tobacco Use Types Packs/Day [...] Procedure Name Priority Date/Time Associated Diagnosis Comments CBC W/PLT & DIFF,POINT OF CARE [place] [facility] Routine 03/07/2020 12:21 EDT documented in this encounter Results * (ABNORMAL) CBC W/PLT & DIFF,POINT OF CARE - [facility] (03/07/2020 12:21 EDT) Gran # 3.0 1.4 - 6.5 X10E3/UL 03/08/2020 12:23 EDT [facility] GRAN % - [facility] 58.9 42.2 - 75.2 % 03/08/2020 12:23 EDT [facility] HEMATOCRIT - [facility] 37.7 35.0 - 60.0 % 03/08/2020 12:23 EDT [facility] HEMOGLOBIN - [facility] 13.1 11.0 - 18.0 G/DL 03/08/2020 12:23 [facility] LYMPH # - [facility] 1.7 1.2 - 3.4 X10E3/UL 03/08/2020 12:23 [facility] LYMPH% - [facility] 34.1 20.5 - 51.1 % 03/08/2020 12:23 [facility] MEAN CORPUSCULAR HGB - [facility] 32.4(H) 27.0 - 31.0 PG 03/08/2020 12:23 [facility] MEAN CORPUSCULAR HGB CONC - [facility] 34.7 33.0 - 37.0 G/DL 03/08/2020 12:23 [facility] MEAN CELL VOLUME - [facility] 93.5 80.0 - 99.9 FL 03/08/2020 12:23 [facility] MONO # - [facility] 0.4 0.1 - 0.6 X10E3/UL 03/08/2020 12:23 [facility] MONO% - [facility] 7.0 1.7 - 9.3 % 03/08/2020 12:23 [facility] MEAN PLATELET VOLUME - [facility] 8.2 7.8 - 11.0 FL 03/08/2020 12:23 [facility] PLATELET COUNT 289 150 - 450 X10E3/UL 03/08/2020 12:23 [facility] RED BLOOD COUNT - [facility] 4.03 4.00 - 6.00 X10E6/UL 03/08/2020 12:23 [facility] RED CELL DISTRI WIDTH - [facility] 12.9 11.6 - 13.7 % 03/08/2020 12:23 [facility] WHITE BLOOD COUNT - [facility] 5.1 4.5 - 10.5 X10E3/UL 03/08/2020 12:23 [facility] 03/07/2020 12:2 1 EDT 03/07/2020 12:21 [facility] - 03/08/2020 12:23 EDT CHRONIC RENAL IMPAIRMENT IS DEFINED GFR <60 MULTIPLY RESULT BY 1.210 FOR PATIENTS EGFR CALCULATED USING THE IDMS-TRACEABLE MDRD STUDY us Preet Hale MD CHEMISTRY & BLOOD GAS ORDERABLES Final Result [facility] documented in this encounter Visit Diagnoses Not on filedocumented in this encounter
--- OUTSIDE RECORDS SUMMARY | 2024-10-02 18:51 | XMS_ITS | Encounter Summary ---
Author Organization [facility] Address [address] [place] [address] Care Team Providers Care Poured Wall Foreman Name Role Phone Unavailable Primary Care Provider Unavailabl e Encounter Details Date Type Department Care Team (Late st Contact Info) Description 05/21/2023 Results Only [facility] Laboratory Services - [facility] [address] [place] [address] Preet Hale MD [address] [place] [phone] Social History Tobacco Use Types [...] Procedure Name Priority Date/Time Associated Diagnosis Comments LDL CHOLESTEROL Routine 05/21/2023 14:16 EDT documented in this encounter Results * LDL CHOLESTEROL (05/21/2023 14:16 EDT) Calculated LDL 93 60 - 100 mg/dL [facility] 05/21/2023 14:1 6 EDT us Preet Hale MD HEMATOLOGY & PF4 ORDERABLES Roberta l Result [facility] [address] [place] [address] documented in this encounter Visit Diagnoses Not on filedocumented in this encounter
--- OUTSIDE RECORDS SUMMARY | 2024-10-02 18:51 | XMS_ITS | Encounter Summary ---
Author Organization [facility] Address [address] [place] [address] Care Team Providers Care Melt Helper Name Role Phone Unavailable Primary Care Provider Unavailabl e Encounter Details Date Type Department Care Team (Late st Contact Info) Description 05/21/2023 Results Only [facility] Laboratory Services - [facility] [address] [place] [address] Preet Hale MD [address] [place] [phone] Social History Tobacco Use Types [...] Procedure Name Priority Date/Time Associated Diagnosis Comments HEMOGLOBIN A1C Routine 05/21/2023 14:50 EDT documented in this encounter Results * HEMOGLOBIN A1C (05/21/2023 14:50 EDT) HgB A1C% 4.9 4.0 - 6.0 % [facility] Average Calculated 83 60 - 115 mg/dL [facility] 05/21/2023 14:5 0 EDT us Preet Hale MD CHEMISTRY & BLOOD GAS ORDERABLES Final Result [facility] [address] [place] [address] documented in this encounter Visit Diagnoses Not on filedocumented in this encounter
--- OUTSIDE RECORDS SUMMARY | 2024-10-02 18:51 | XMS_ITS | Encounter Summary ---
Author Organization [facility] Address [address] [place] [address] Care Team Providers Care Authorization Coordinator Name Role Phone Unavailable Primary Care Provider Unavailabl e Encounter Details Date Type Department Care Team (Late st Contact Info) Description 05/21/2023 Results Only [facility] Laboratory Services - [facility] [address] [place] [address] Preet Hale MD [address] [place] [phone] Social History Tobacco Use Types [...] Procedure Name Priority Date/Time Associated Diagnosis Comments MAGNESIUM Routine 05/21/2023 14:16 EDT documented in this encounter Results * MAGNESIUM (05/21/2023 14:16 EDT) Magnesium 2.10 1.60 - 2.30 mg/dL [facility] 05/21/2023 14:1 6 EDT us Preet Hale MD CHEMISTRY & BLOOD GAS ORDERABLES Final Result [facility] [address] [place] [address] documented in this encounter Visit Diagnoses Not on filedocumented in this encounter
--- OUTSIDE RECORDS SUMMARY | 2024-10-02 18:51 | XMS_ITS | Encounter Summary ---
Author Organization [facility] Address [address] [place] [address] Care Team Providers Care Legislative Advocate Name Role Phone Preet Hale MD Primary Care Provider [phone] Encounter Details Date Type Department Care Team ([facility] st Contact Info) Description 04/14/2022 [facility] [address] [place] [address] Preet Hale MD [address] [place] [phone] Iron deficiency anemia, unspecified iron deficiency anemia type (Primary Dx) Social History Tobacco Use Types Packs/Day Years [...] Procedure Name Priority Date/Time Associated Diagnosis Comments IRON Routine 04/14/2022 8:09 EDT Iron deficiency anemia, unspecified iron deficiency anemia type FERRITIN Routine 04/14/2022 8:09 EDT Iron deficiency anemia, unspecified iron deficiency anemia type documented in this encounter Results * (ABNORMAL) FERRITIN (04/14/2022 8:09 EDT) Ferritin 477(H) 11 - 264 ng/mL 04/14/2022 16:53 EDT [facility] Blood VENOUS BLOOD / Unknown Venipuncture / Unknown 04/14/2022 8:09 EDT 04/14/2022 15:20 EDT Narrative [facility] - 04/14/2022 16:53 EDT The results of this assay can be falsely lowered due to the consumption of Biotin. Preet Hale MD CHEMISTRY & BLOOD GAS ORDERABLES Final Result Performing Organization Address City/[facility]/ZIP Co de Phone Number [facility] [address] [place] [address] * IRON (04/14/2022 8:09 EDT) Iron 119 37 - 170 ??g/dL 04/14/2022 16:13 EDT [facility] Blood VENOUS BLOOD / Unknown Venipuncture / Unknown 04/14/2022 8:09 EDT 04/14/2022 15:20 EDT Preet Hale MD CHEMISTRY & BLOOD GAS ORDERABLES Final Result Performing Organization Address City/[facility] Co de Phone Number [facility] [address] [place] [address] documented in this encounter Visit Diagnoses Diagnosis Iron deficiency anemia, unspecified iron deficiency anemia type- Primary documented in this encounter Care Teams Legislative Advocate Relationship Specialty Start Date End Date Preet Hale MD [address] [place] [phone] PCP - General Family Medicine - Primary Care 03/24/24 documented as of this encounter
--- OUTSIDE RECORDS SUMMARY | 2024-10-02 18:51 | XMS_ITS | Encounter Summary ---
Author Organization [facility] Address [address] [place] [address] Care Team Providers Care Manager Of Revenue Name Role Phone Preet Hale MD Primary Care Provider [phone] Encounter Details Date Type Department Care Team ([facility] st Contact Info) Description 08/31/2022 [facility] [address] [place] [address] Juliana Valente NP [address] [place] [address] Iron deficiency anemia, unspecified iron [...] on file documented as of this encounter Results * IBC (09/01/2022 13:26 EST) Iron Binding Capacity 281 240 - 450 ??g/dL 09/01/2022 15:33 EST [facility] Blood VENOUS BLOOD / Unknown Venipuncture / Unknown 09/01/2022 13:26 EST 09/01/2022 14:39 EST us Juliana Valente NP CHEMISTRY & BLOOD GAS ORDERABLES Final Result [facility] [address] [place] [address] * FERRITIN (09/01/2022 13:26 EST) Ferritin 246 11 - 264 ng/mL 09/01/2022 16:04 EST [facility] Blood VENOUS BLOOD / Unknown Venipuncture / Unknown 09/01/2022 13:26 EST 09/01/2022 14:39 EST Narrative [facility] - 09/01/2022 16:04 EST The results of this assay can be falsely lowered due to the consumption of Biotin. us Juliana Valente CLIP LOADING MACHINE ADJUSTER CHEMISTRY & BLOOD GAS ORDERABLES Final Result [facility] [address] [place] [address] documented in this encounter Visit Diagnoses Diagnosis Iron deficiency anemia, unspecified iron deficiency anemia type- Primary documented in this encounter Care Teams Manager Of Revenue Relationship Specialty Start Date End Date Preet Hale MD [address] [place] [phone] PCP - General Family Medicine - Primary Care 03/24/24 documented as of this encounter
--- OUTSIDE RECORDS SUMMARY | 2024-10-02 18:51 | XMS_ITS | Encounter Summary ---
Author Organization [facility] Address [address] [place] [address] Care Team Providers Care Dental Aide Name Role Phone Preet Hale MD Primary Care Provider [phone] Encounter Details Date Type Department Care Team (Latest Contact Info) Description 03/24/2024 13:01 EDT - 03/24/2024 23:59 EDT Hospital Encounter [facility] Lab - Main [place] [address] [place] [phone] Robotic Maintenance Technician, [facility] Pure hypercholesterolemi a; Vitamin D deficiency disease; Personal history of diseases of blood and blood-forming organs Discharge Disposition: Home or Self Care Social [...] Procedure Name Priority Date/Time Associated Diagnosis Comments VITAMIN D (25,OH) Routine 03/24/2024 13: 02 EDT Vitamin D deficiency disease IBC Routine 03/24/2024 13:02 EDT Personal history of diseases of blood and blood-forming organs TRANSFERRIN Routine 03/24/2024 13:02 EDT Personal history of diseases of blood and blood-forming organs IRON Routine 03/24/2024 13:02 EDT Personal history of diseases of blood and blood-forming organs FERRITIN Routine 03/24/2024 13:02 EDT Personal history of diseases of blood and blood-forming organs VITAMIN B12 Routine 03/24/2024 13:02 EDT Personal history of diseases of blood and blood-forming organs LIPID PROFILE (INCLUDES CHOLESTEROL, TRIGLYCERIDES, HDL, LDL) Routine 03/24/2024 13:02 EDT Pure hypercholesterolemia documented in this encounter Results * (ABNORMAL) TRANSFERRIN (03/24/2024 13:02 EDT) Transferrin 180(L) 201 - 352 mg/dL 03/27/2024 9:01 EDT [facility] Blood VENOUS BLOOD / Unknown Venipuncture / Unknown 03/24/2024 13:02 EDT 03/24/2024 13:02 EDT Preet Hale MD CHEMISTRY & BLOOD GAS ORDERABLES Final Result [facility] [address] [place] [address] * (ABNORMAL) IBC (03/24/2024 13:02 EDT) Iron Binding Capacity 222(L) 240 - 450 ??g/dL 03/24/2024 13:55 EDT [facility] Blood VENOUS BLOOD / Unknown Venipuncture / Unknown 03/24/2024 13:02 EDT 03/24/2024 13:02 EDT us Preet Hale MD CHEMISTRY & BLOOD GAS ORDERABLES Final Result [facility] [address] [place] [address] * IRON (03/24/2024 13:02 EDT) Iron 83 37 - 170 ??g/dL 03/24/2024 13:43 EDT [facility] Blood VENOUS BLOOD / Unknown Venipuncture / Unknown 03/24/2024 13:02 EDT 03/24/2024 13:02 EDT us Preet Hale MD CHEMISTRY & BLOOD GAS ORDERABLES Final Result Performing Organization Address [facility] Co de Phone Number [facility] [address] [place] [address] * FERRITIN (03/24/2024 13:02 EDT) Pathologist [facility] Ferritin 178 11 - 264 ng/mL 03/24/2024 14:24 EDT [facility] Blood VENOUS BLOOD / Unknown Venipuncture / Unknown 03/24/2024 13:02 EDT 03/24/2024 13:02 EDT Narrative [facility] - 03/24/2024 14:24 EDT The results of this assay can be falsely lowered due to the consumption of Biotin. us Preet Hale MD CHEMISTRY & BLOOD GAS ORDERABLES Final Result Performing Organization Address [facility] [address] [place] [address] * (ABNORMAL) VITAMIN B12 (03/24/2024 13:02 EDT) [facility] Vitamin B12 >1,000(H) 211 - 911 pg/mL 03/24/2024 14:48 EDT [facility] Blood VENOUS BLOOD / Unknown Venipuncture / Unknown 03/24/2024 13:02 EDT 03/24/2024 13:02 EDT Narrative [facility] - 03/24/2024 14:48 EDT The results of this assay can be falsely elevated due to the consumption of Biotin. us Preet Hale MD CHEMISTRY & BLOOD GAS ORDERABLES Final Result Performing Organization Address [facility] Co de Phone [facility] [address] [place] [address] * VITAMIN D (25,OH) (03/24/2024 13:02 EDT) 25OH Vitamin D Tot 62 30 - 100 ng/mL 03/24/2024 14:06 EDT [facility] Blood VENOUS BLOOD / Unknown Venipuncture / Unknown 03/24/2024 13:02 EDT 03/24/2024 13:02 EDT us Preet Hale MD CHEMISTRY & BLOOD GAS ORDERABLES Final Result [facility] [address] [place] [address] * LIPID PROFILE (INCLUDES CHOLESTEROL, TRIGLYCERIDES, HDL, LDL) (03/24/2024 13:02 EDT) Pathologist [facility] Cholesterol 175 <200 mg/dL 03/24/2024 13:43 [facility] Comment:Note that therapeuti c goals will differ between patients based on cardiac risk factors and current medical therapy. HDL 84 >=50 mg/dl 03/24/2024 13:43 [facility] Comment:Note that therapeuti c goals will differ between patients based on cardiac risk factors and current medical therapy. LDL, Calculated 80 <160 mg/dL 13:43 [facility] Comment:Note that therapeuti c goals will differ between patients based on cardiac risk factors and current medical therapy. Triglyceride 56 <=150 mg/dL 03/24/2024 13:43 [facility] Comment:Note that therapeuti c goals will differ between patients based on cardiac risk factors and current medical therapy. Chol/HDL Ratio 2.1 See Note 03/24/2024 13:43 [facility] Comment: NOTE: Desirable Ratio = <4.1 Patient At Risk Ratio = >5.0(Males) ?>6.0(Females) Non HDL Cholesterol 91 <160 mg/dL 03/24/2024 13:43 EDT [facility] Comment:Note that therapeuti c goals will differ between patients based on cardiac risk factors and current medical therapy. Blood VENOUS BLOOD / Unknown Venipuncture / Unknown 03/24/2024 13:02 EDT 03/24/2024 13:02 EDT us Preet Hale MD CHEMISTRY & BLOOD GAS ORDERABLES Final Result [facility] [address] [place] [phone] documented in this encounter Visit Diagnoses Diagnosis Pure hypercholesterolemia Vitamin D deficiency disease Unspecified vitamin D deficiency Personal history of diseases of blood and blood-forming organs documented in this encounter Care Teams Dental Aide Relationship Specialty Start Date End Date Preet Hale MD [address] [place] [phone] PCP - General Family Medicine - Primary Care 03/24/24 documented as of this encounter
--- OUTSIDE RECORDS SUMMARY | 2024-10-02 18:51 | XMS_ITS | Encounter Summary ---
Author Organization [facility] Address [address] [place] [address] Care Team Providers Care Bin Packer Name Role Phone Unavailable Primary Care Provider Unavailabl e Encounter Details Date Type Department Care Team (Late st Contact Info) Description 03/07/2020 Results Only [facility] Lab - Main [place] [address] [place], [place] [address] Preet Hale MD [address] [place] [phone] Social History Tobacco Use Types Packs/Day [...] Procedure Name Priority Date/Time Associated Diagnosis Comments POCT URINALYSIS Routine 03/07/2020 12:21 EDT documented in this encounter Results * (ABNORMAL) POCT URINALYSIS (03/07/2020 12:21 EDT) URINE APPEARANCE - [facility] Clear CLEAR 03/08/2020 12:23 EDT [facility] URINE BILIRUBIN - DIPST[place] - [facility] Negative NEGATIVE 03/08/2020 12:23 EDT [facility] URINE BLOOD - [facility] Negative NEGATIVE 03/[facility]2020 [facility] - [facility] Yellow YELLOW 03/08/2020 [facility] GLUCOSE - [place] - [facility] Negative NEGATIVE 03/08/2020 12:23 EDT [facility] URINE KETONE - [facility] Negative NEGATIVE 03/08/2020 12:23 EDT [facility] URINE LEUK ESTERASE - [facility] Negative NEGATIVE 03/08/2020 12:23 EDT [facility] URINE NITRITE - [place] - [facility] Negative NEGATIVE 03/08/2020 12:23 EDT [facility] URINE PH - [facility] 8.5(H) () 0 12:23 EDT [facility] URINE PROTEIN - [place] - [facility] Negative NEGATIVE 03/08/2020 12:23 EDT [facility] URINE SPECIFIC GRAVITY - [facility] 1.020 () 03/08/2020 12:23 [facility] URINE UROBILINOGEN - [place] - [facility] 0.2 0.2 - 1.0 EU/DL 03/08/2020 12:23 T [facility] 03/07/2020 12:2 1 EDT 03/07/2020 12:21 EDT Narrative [facility] - 03/08/2020 12:23 EDT CHRONIC RENAL IMPAIRMENT IS DEFINED GFR <60 MULTIPLY RESULT BY 1.210 FOR PATIENTS EGFR CALCULATED USING THE IDMS-TRACEABLE MDRD STUDY us Preet Hale MD POINT OF CARE TEST ORDERABLES Fi nal Result [facility] documented in this encounter Visit Diagnoses Not on filedocumented in this encounter
--- OUTSIDE RECORDS SUMMARY | 2024-10-02 18:51 | XMS_ITS | Referral Summary ---
Author Organization [facility] Address [address] [place] [address] Care Team Providers Care Template Worker Name Role Phone Preet Hale MD Primary Care Provider [phone] Social History Tobacco Use Types Packs/Day Years Used Date Smoking Tobacco: Never Assessed Comments No Sex and Gender Information Value Date Recorded Sex Assigned at Not on file Legal Sex Female 18:24 EST Gender Identity Female 11/22/2023 12:49 EST Sexual Orientation Not on file Plan of Treatment Not on file Insurance ANTHEM ANTHEM Care Teams Template Worker Relationship Specialty Start Date End Date Preet Hale MD [address] [place] [phone] PCP - General Family Medicine - Primary Care 03/24/24
--- OUTSIDE RECORDS SUMMARY | 2024-10-02 18:51 | XMS_ITS | Encounter Summary ---
Author Organization [facility] Address [address] [place] [address] Care Team Providers Care Carnallite Plant Operator Name Role Phone Unavailable Primary Care Provider Unavailabl e Encounter Details Date Type Department Care Team (Late st Contact Info) Description 03/07/2020 Results Only [facility] - Main [place] [address] [place], [place] [address] Preet Hale MD [address] [place] [phone] Social History Tobacco Use Types Packs/Day [...] Procedure Name Priority Date/Time Associated Diagnosis Comments THYROID STIM HORMONE POC - [facility] Routine 03/07/2020 12:21 EDT documented in this encounter Results * THYROID STIM HORMONE POC - [facility] (03/07/2020 12:21 EDT) THYROID STIM HORMONE - [facility] 2.25 0.45 - 5.33 UIU/ML 03/08/2020 12:23 EDT [facility] 03/07/2020 12:2 1 EDT 03/07/2020 12:21 EDT Narrative [facility] - 03/08/2020 12:23 EDT CHRONIC RENAL IMPAIRMENT IS DEFINED GFR <60 MULTIPLY RESULT BY 1.210 FOR PATIENTS EGFR CALCULATED USING THE IDMS-TRACEABLE MDRD STUDY us Preet Hale MD CHEMISTRY & BLOOD GAS ORDERABLES Final Result [facility] documented in this encounter Visit Diagnoses Not on filedocumented in this encounter
--- OUTSIDE RECORDS SUMMARY | 2024-10-02 18:51 | XMS_ITS | Encounter Summary ---
Author Organization [facility] Address [address] [place] [address] Care Team Providers Care Nursing Resident Name Role Phone Unavailable Primary Care Provider Unavailabl e Encounter Details Date Type Department Care Team (Late st Contact Info) Description 04/14/2022 Results Only [facility] [place] [address] Preet Hale MD [address] [place] [phone] Social History Tobacco Use Types Packs/Day [...] COMPLETE BLOOD COUNT WITH DIFFERENTIAL (AUTO) Routine 04/14/2022 9:15 EDT documented in this encounter Results * (ABNORMAL) COMPLETE BLOOD COUNT WITH DIFFERENTIAL (AUTO) (04/14/2022 9:15 EDT) WBC 6.2 4.5 - 10.5 x10e3/uL [facility] Lymphocytes 33.8 20.5 - 51.1 % [facility] Monocytes 5.9 1.7 - 9.3 % [facility] Granulocytes 60.3 42.2 - 75.2 % [facility] Lymph # 2.1 1.2 - 3.4 x10e3/uL [facility] [place] # 0.4 0.1 - 0.6 x10e3/uL [facility] Gran # 3.7 1.4 - 6.5 x10e3/uL [facility] RBC 3.62(L) 4.00 - 6.00 x10e6/uL [facility] HGB 11.5 11.0 - 18.0 g/dL [facility] HCT 34.7(L) 35.0 - 60.0 % [facility] MCV 95.7 80.0 - 99.9 fL [facility] MCH 31.8(H) 27.0 - 31.0 pg [facility] MCHC 33.3 33.0 - 37.0 g/dL [facility] RDW 14.5(H) 11.6 - 13.7 % [facility] PLT 338 150 - 450 x10e3/uL [facility] MPV 8.3 7.8 - 11.0 fL [facility] 04/14/2022 9:15 EDT us Preet Hale MD HEMATOLOGY & PF4 ORDERABLES Roberta izquierdo Result Performing Organization Address City/State/[facility] Co de Phone Number [facility] [address] [place], [place] [id number] documented in this encounter Visit Diagnoses Not on filedocumented in this encounter
--- OUTSIDE RECORDS SUMMARY | 2024-10-02 18:51 | XMS_ITS | Encounter Summary ---
Author Organization Health system Address [address] [place] [address] Care Team Providers Care Dining Host Name Role Phone Unavailable Primary Care Provider Unavailabl e Encounter Details Date Type Department Care Team (Late st Contact Info) Description 05/28/2023 Results Only [facility] Services - [facility] [address] [place] [address] Preet Hale MD [address] [place] [phone] Social History Tobacco Use Types [...] Priority Date/Time Associated Diagnosis Comments IRON Routine 05/28/2023 14:07 EDT documented in this encounter Results * IRON (05/28/2023 14:07 EDT) Iron 86 37 - 170 ug/dL [facility] 05/28/2023 14:0 7 EDT us Preet Hale MD CHEMISTRY & BLOOD GAS ORDERABLES Final Result [facility] [address] [place] [address] documented in this encounter Visit Diagnoses Not on filedocumented in this encounter
--- OUTSIDE RECORDS SUMMARY | 2024-10-02 18:51 | XMS_ITS | Encounter Summary ---
Author Organization [facility] Address [address] [place] [address] Care Team Providers Care Wire Puller Name Role Phone Preet Hale MD Primary Care Provider Encounter Details Date Type Department Care Team (Latest Contact Info) Description 03/24/2024 Community Orders [facility] [address] [place] [address] Preet Hale MD [address] [place] [phone] Pure hypercholesterolemia (Primary Dx); Vitamin D deficiency disease; Personal history of diseases of blood and blood-forming organs Social History Tobacco Use Types Packs/Day Years Used Date Smoking Tobacco: Never Assessed Comments No Sex and Gender Information Value Date Recorded Sex Assigned at Not on file Legal Sex Female 18:24 EST Gender Identity Female 11/22/2023 12:49 EST Sexual Orientation Not on file documented as of this encounter Plan of Treatment Not on file documented as of this encounter Results * (ABNORMAL) TRANSFERRIN (03/24/2024 13:02 EDT) Transferrin 180(L) 201 - 352 mg/dL 03/27/2024 9:01 EDT [facility] Blood VENOUS BLOOD / Unknown Venipuncture / Unknown 03/24/2024 13:02 EDT 03/24/2024 13:02 EDT us Preet Hale MD CHEMISTRY & BLOOD GAS ORDERABLES Final Result [facility] [address] [place] [address] * (ABNORMAL) IBC (03/24/2024 13:02 EDT) Iron Binding Capacity 222(L) 240 - 450 ??g/dL 03/24/2024 13:55 EDT [facility] Blood VENOUS BLOOD / Unknown Venipuncture / Unknown 03/24/2024 13:02 EDT 03/24/2024 13:02 EDT us Preet Hale MD CHEMISTRY & BLOOD GAS ORDERABLES Final Result Performing Organization Address [facility]/ZIP Co de Phone Number [facility] [address] [place] [address] * IRON (03/24/2024 13:02 EDT) Iron 83 37 - 170 ??g/dL 03/24/2024 13:43 EDT [facility] Blood VENOUS BLOOD / Unknown Venipuncture / Unknown 03/24/2024 13:02 EDT 03/24/2024 13:02 EDT us Preet Hale MD CHEMISTRY & BLOOD GAS ORDERABLES Final Result Performing Organization Address [facility] Co de Phone Number [facility] [address] [place] [address] * FERRITIN (03/24/2024 13:02 EDT) Ferritin 178 11 - 264 ng/mL 03/24/2024 14:24 EDT [facility] Blood VENOUS BLOOD / Unknown Venipuncture / Unknown 03/24/2024 13:02 EDT 03/24/2024 13:02 EDT Narrative [facility] - 03/24/2024 14:24 EDT The results of this assay can be falsely lowered due to the consumption of Biotin. us Preet Hale MD CHEMISTRY & BLOOD GAS ORDERABLES Final Result Performing Organization Address City/[facility]/ZIP Co de Phone Number [facility] [address] [place] [address] * (ABNORMAL) VITAMIN B12 (03/24/2024 13:02 EDT) [facility] Vitamin B12 >1,000(H) 211 - 911 pg/mL 03/24/2024 14:48 EDT [facility] Blood VENOUS BLOOD / Unknown Venipuncture / Unknown 03/24/2024 13:02 EDT 03/24/2024 13:02 EDT Narrative [facility] - 03/24/2024 14:48 EDT The results of this assay can be falsely elevated due to the consumption of Biotin. us Preet Hale MD CHEMISTRY & BLOOD GAS ORDERABLES Final Result Performing Organization Address [facility] de Phone [facility] [address] [place] [id number] * VITAMIN D (25,OH) (03/24/2024 13:02 EDT) [facility] 25OH Vitamin D Tot 62 30 - 100 ng/mL 03/24/2024 14:06 EDT [facility] Blood VENOUS BLOOD / Unknown Venipuncture / Unknown 03/24/2024 13:02 EDT 03/24/2024 13:02 EDT us Preet Hale MD CHEMISTRY & BLOOD GAS ORDERABLES Final Result Performing Organization Address [facility] Co de Phone Number [facility] [address] [place] [address] * LIPID PROFILE (INCLUDES CHOLESTEROL, TRIGLYCERIDES, HDL, LDL) (03/24/2024 13:02 EDT) [facility] Cholesterol 175 <200 mg/dL 03/24/2024 13:43 EDT [facility] Comment:Note that therapeuti c goals will differ between patients based on cardiac risk factors and current medical therapy. HDL 84 >=50 mg/dl 03/24/2024 13:43 [facility] Comment:Note that therapeuti c goals will differ between patients based on cardiac risk factors and current medical therapy. LDL, Calculated 80 <160 mg/dL 13:43 [facility] Comment:Note that therapeuti c goals will differ between patients based on cardiac risk factors and current medical therapy. Triglyceride 56 <=150 mg/dL 03/24/2024 13:43 [facility] Comment:Note that therapeuti c goals will differ between patients based on cardiac risk factors and current medical therapy. Chol/HDL Ratio 2.1 See Note 03/24/2024 13:43 [facility] Comment: NOTE: Desirable Ratio = <4.1 Patient At Risk Ratio = >5.0(Males) ?>6.0(Females) Non HDL Cholesterol 91 <160 mg/dL 03/24/2024 13:43 [facility] Comment:Note that therapeuti c goals will differ between patients based on cardiac risk factors and current medical therapy. Blood VENOUS BLOOD / Unknown Venipuncture / Unknown 03/24/2024 13:02 EDT 03/24/2024 13:02 EDT us Preet Hale MD CHEMISTRY & BLOOD GAS ORDERABLES Final Result Performing Organization Address City/State/[facility] Co de Phone Number [facility] [address] [place] [address] documented in this encounter Visit Diagnoses Diagnosis Pure hypercholesterolemia- Primary Vitamin D deficiency disease Unspecified vitamin D deficiency Personal history of diseases of blood and blood-forming organs documented in this encounter Care Teams Wire Puller Relationship Specialty Start Date End Date Preet Hale MD [address] [place] [phone] PCP - General Family Medicine - Primary Care 03/24/24 documented as of this encounter
--- OUTSIDE RECORDS SUMMARY | 2024-10-02 18:51 | XMS_ITS | Encounter Summary ---
Author Organization [facility] Address [address] [place] [address] Care Team Providers Care Hand Pleater Name Role Phone Unavailable Primary Care Provider Unavailabl e Encounter Details Date Type Department Care Team (Late st Contact Info) Description 08/31/2022 Results Only [facility] Services - [facility] [address] [place] [address] Juliana Valente NP [address] [place] [phone] Social History Tobacco Use Types [...] Procedure Name Priority Date/Time Associated Diagnosis Comments DRUG SCREEN, URINE - [facility] Routine 08/31/2022 13:41 EST documented in this encounter Results * DRUG SCREEN, URINE - [facility] (08/31/2022 13:41 EST) Cannabinoids (THC) [facility] NEGATIVE [facility] Opiates (OPI) [facility] NEGATIVE [facility] Amphetamines (AMP) NEG NEGATIVE T [facility] Cocaine (C0C) NEG NEGATIVE [facility] Phencyclidine (PCP) NEG NEGATIVE [facility] Tricyc Antidepressant (TCA) NEG NEGATIVE [facility] Barbituate (BAR) NEG NEGATIVE [facility] Methadone (MTD) NEG NEGATIVE [facility] Benzodiazepine (BZO) NEG NEGATIVE [facility] Propoxyphene (PPX) NEG NEGATIVE T [facility] Methamphetamine (MAMP) NEG NEGATIVE [facility] Oxycodone (OXY) NEG NEGATIVE [facility] 08/31/2022 13:4 1 EST us Juliana Valente PROCEDURE WRITER URINALYSIS ORDERABLES Final Resu lt Performing Organization Address City/State/[facility] Co de Phone Number [facility] [address] [place] [address] documented in this encounter Visit Diagnoses Not on filedocumented in this encounter
--- OUTSIDE RECORDS SUMMARY | 2024-10-02 18:51 | XMS_ITS | Encounter Summary ---
Author Organization [facility] Address [address] [place] [address] Care Team Providers Care Liquor Store Manager Name Role Phone Preet Hale MD Primary Care Provider Encounter Details Date Type Department Care Team ([facility] Contact Info) Description 09/01/2022 Orders Only [facility] [address] [place] [address] Juliana Valente NP [address] [place] [phone] Iron deficiency anemia, unspecified iron deficiency anemia type Social History Tobacco Use Types Packs/Day Years [...] Procedure Name Priority Date/Time Associated Diagnosis Comments IBC Routine 09/01/2022 13:26 EST Iron deficiency anemia, unspecified iron deficiency anemia type FERRITIN Routine 09/01/2022 13:26 EST Iron deficiency anemia, unspecified iron deficiency anemia type documented in this encounter Results * FERRITIN (09/01/2022 13:26 EST) Ferritin 246 11 - 264 ng/mL 09/01/2022 16:04 EST [facility] Blood VENOUS BLOOD / Unknown Venipuncture / Unknown 09/01/2022 13:26 EST 09/01/2022 14:39 EST Narrative [facility] - 09/01/2022 16:04 EST The results of this assay can be falsely lowered due to the consumption of Biotin. us Juliana Valente HORTICULTURAL MANAGER CHEMISTRY & BLOOD GAS ORDERABLES Final Result Performing Organization Address City/[facility]/ZIP Co de Phone Number [facility] [address] [place] [address] * IBC (09/01/2022 13:26 EST) Iron Binding Capacity 281 240 - 450 ??g/dL 09/01/2022 15:33 EST [facility] Blood VENOUS BLOOD / Unknown Venipuncture / Unknown 09/01/2022 13:26 EST 09/01/2022 14:39 EST Juliana Valente HORTICULTURAL MANAGER CHEMISTRY & BLOOD GAS ORDERABLES Final Result Performing Organization Address [facility] Co de Phone Number [facility] [address] [place] [address] documented in this encounter Visit Diagnoses Diagnosis Iron deficiency anemia, unspecified iron deficiency anemia type documented in this encounter Care Teams Liquor Store Manager Relationship Specialty Start Date End Date Preet Hale MD [address] [place] [phone] PCP - General Family Medicine - Primary Care 03/24/24 documented as of this encounter
--- OUTSIDE RECORDS SUMMARY | 2024-10-02 18:51 | XMS_ITS | Encounter Summary ---
Author Organization [facility] Address [address] [place] [address] Care Team Providers Care Pellet Machine Operator Name Role Phone Unavailable Primary Care Provider Unavailabl e Encounter Details Date Type Department Care Team (Late st Contact Info) Description 05/21/2023 Results Only [facility] [place] [address] Preet Hale MD [address] [place] [phone] Social History Tobacco Use Types Packs/Day [...] Procedure Name Priority Date/Time Associated Diagnosis Comments COMPREHENSIVE METABOLIC PANEL (CMP) Routine 05/21/2023 14:16 EDT documented in this encounter Results * (ABNORMAL) COMPREHENSIVE METABOLIC PANEL (CMP) (05/21/2023 14:16 EDT) Glucose 93.00 70.00 - 100.00 mg/dL [facility] Bun 9.00 7.00 - 20.00 mg/dL [facility] Creatinine 0.80 0.70 - 1.50 mg/dL [facility] GFR, Calculated >60 [facility] Comment: Chronic renal impairment is defined as GFR <60 Multiply result by 1.210 for patients eGFR calculated using the IDMS-traceable MDRD study Sodium 134.00(L) 137.00 - 145.00 mmol/L [facility] Potassium 4.00 3.50 - 5.10 mmol/L [facility] Chloride 98.00 98.00 - 107.00 mmol/L [facility] Carbon Dioxide 29.00 22.00 - 30.00 mmol/L [facility] Calcium 9.60 8.50 - 10.50 mg/dL [facility] Anion Gap 7 7 - 17 mmol/L [facility] Total Protein 7.30 6.30 - 8.20 g/dL [facility] Albumin 4.80 3.50 - 5.00 g/dL [facility] Total Bilirubin 0.40 0.20 - 1.30 mg/dL [facility] AST/SGOT 31.00 15.00 - 46.00 U/L [facility] ALT/SGPT 32.00 0.00 - 35.00 U/L [facility] ALK 90.00 38.00 - 126.00 U/L [facility] 05/21/2023 14:1 6 EDT us Preet Hale MD CHEMISTRY & BLOOD GAS ORDERABLES Final Result [facility] [address] [place] [address] documented in this encounter Visit Diagnoses Not on filedocumented in this encounter
--- OUTSIDE RECORDS SUMMARY | 2024-10-02 18:51 | XMS_ITS | Encounter Summary ---
Author Organization [facility] Address [address] [place] [address] Care Team Providers Care Self Sealing Fuel Tank Builder Name Role Phone Unavailable Primary Care Provider Unavailabl e Encounter Details Date Type Department Care Team (Latest Contact Info) Description 09/01/2022 14:38 EST - 09/01/2022 23:59 EST Hospital Encounter [facility] - Main [address] [address] Business Agent, [facility] Discharge Disposition: Home or Self Care [...]
--- OUTSIDE RECORDS SUMMARY | 2024-10-02 18:51 | XMS_ITS | Clinical Summary ---
Author Organization [facility] Address [address] [place] [address] Care Team Providers Care Back Tender Insulation Board Name Role Phone Preet Hale MD Primary Care Provider [phone] Family History Medical History Relation Comments Breast Cancer Paternal Aunt Relation Status Comments Paternal Aunt Social History Tobacco Use Types Packs/Day Years Used Date Smoking Tobacco: Never Assessed Comments No Sex and Gender Information Value Date Recorded Sex Assigned at Not on file Legal Sex Female 18:24 EST Gender Identity Female 11/22/2023 12:49 EST Sexual Orientation Not on file Obstetrics History Para Term AB IAB SAB Ectopic Multiple Livin g Live Births 0 0 Plan of Treatment Health Maintenance Due Date Last Done Comments Hepatitis C Screen 1982 Hepatitis B Vaccine (1 of - 19+ 3-dose series) 10/15 COVID-19 Vaccine ( season) 2024 Insurance ANTHEM ANTHEM Care Teams Back Tender Insulation Board Relationship Specialty Start Date End Date Preet Hale MD [address] [place] [phone] PCP - General Family Medicine - Primary Care 03/24/24
--- OUTSIDE RECORDS SUMMARY | 2024-10-02 18:51 | XMS_ITS | Encounter Summary ---
Author Organization [facility] Address [address] [place] [address] Care Team Providers Care Trial Judge Name Role Phone Unavailable Primary Care Provider Unavailabl e Encounter Details Date Type Department Care Team (Late st Contact Info) Description 03/07/2020 Results Only [facility] - Main [place] [address] [place], [place] [address] Preet Hale MD [address] [place] [phone] Social History Tobacco Use Types Packs/Day [...] Name Priority Date/Time Associated Diagnosis Comments [place] - [facility] Routine 03/07/2020 12:21 EDT documented in this encounter Results * IRON POC - [facility] (03/07/2020 12:21 EDT) SERUM IRON - [facility] 79 37 - 170 UG/DL 03/08/2020 12:23 EDT [facility] 03/07/2020 12:2 1 EDT 03/07/2020 12:21 EDT Narrative [facility] - 03/08/2020 12:23 EDT CHRONIC RENAL IMPAIRMENT IS DEFINED GFR <60 MULTIPLY RESULT BY 1.210 FOR PATIENTS EGFR CALCULATED USING THE IDMS-TRACEABLE MDRD STUDY Preet Hale MD CHEMISTRY & BLOOD GAS ORDERABLES Final Result [facility] documented in this encounter Visit Diagnoses Not on filedocumented in this encounter
--- OUTSIDE RECORDS SUMMARY | 2024-10-02 18:51 | XMS_ITS | Encounter Summary ---
Author Organization [facility] Address [address] [place] [address] Care Team Providers Care Special Education Director Name Role Phone Unavailable Primary Care Provider Unavailabl e Encounter Details Date Type Department Care Team (Late st Contact Info) Description 03/07/2020 Results Only [facility] - Main [place] [address] [place], [place] [address] Preet Hale MD [address] [place] [phone] Social History Tobacco Use Types Packs/Day [...] Name Priority Date/Time Associated Diagnosis Comments LIPID PANEL POC [place] [facility] Rout[place] 03/07/2020 12:21 EDT documented in this encounter Results * (ABNORMAL) LIPID PANEL POC - [facility] (03/07/2020 12:21 EDT) Triglyceride 52 0.00 - 150.00 MG/DL 03/08/2020 12:23 EDT [facility] Cholesterol 185 0.00 - 200.00 MG/DL 03/08/2020 12:23 EDT [facility] HDL 81(H) 40.00 - 60.00 MG/DL 03/08/2020 12:23 EDT [facility] 03/07/2020 12:2 1 EDT 03/07/2020 12:21 EDT Narrative [facility] - 03/08/2020 12:23 EDT CHRONIC RENAL IMPAIRMENT IS DEFINED GFR <60 MULTIPLY RESULT BY 1.210 FOR PATIENTS EGFR CALCULATED USING THE IDMS-TRACEABLE MDRD STUDY us Preet Hale MD CHEMISTRY & BLOOD GAS ORDERABLES Final Result [facility] documented in this encounter Visit Diagnoses Not on filedocumented in this encounter
--- OUTSIDE RECORDS SUMMARY | 2024-10-02 18:51 | XMS_ITS | Encounter Summary ---
Author Organization [facility] Address [address] [place] [address] Care Team Providers Care Confidential Secretary Name Role Phone Unavailable Primary Care Provider Unavailabl e Encounter Details Date Type Department Care Team (Late st Contact Info) Description 08/31/2022 Results Only [facility] Laboratory Services - [facility] [address] [place] [address] Juliana Valente NP [address] [place] [phone] Social History Tobacco Use Types [...] Procedure Name Priority Date/Time Associated Diagnosis Comments BUPRENORPHINE TOTAL Routine 08/31/2022 1 3:41 EST documented in this encounter Results * BUPRENORPHINE TOTAL (08/31/2022 13:41 EST) Buprenorphine NEG NEGATIVE [facility] [[email or web address] 08/31/2022 13:4 1 EST us Juliana Valente NP CHEMISTRY & BLOOD GAS ORDERABLES Final Result [facility] [address] [place] [address] documented in this encounter Visit Diagnoses Not on filedocumented in this encounter
--- OUTSIDE RECORDS SUMMARY | 2024-10-02 18:51 | XMS_ITS | Encounter Summary ---
Author Organization [facility] Address [address] [place] [address] Care Team Providers Care Engine Lathe Tender Name Role Phone Unavailable Primary Care Provider Unavailabl e Encounter Details Date Type Department Care Team (Late st Contact Info) Description 03/07/2020 Results Only [facility] [place] [address] [place], [place] [address] Preet Hale MD [address] [place] [phone] Social History Tobacco Use Types Packs/Day [...] Name Priority Date/Time Associated Diagnosis Comments POCT CHOLESTEROL LDL ([facility]) Routine 03/07/2020 12:21 EDT documented in this encounter Results * POCT CHOLESTEROL LDL ([facility]) (03/07/2020 12:21 EDT) LDL CHOLESTEROL - [facility] 94 60 - 100 mg/dl 03/08/2020 12:23 EDT [facility] 03/07/2020 12:2 1 EDT 03/07/2020 12:21 EDT Narrative [facility] - 03/08/2020 12:23 EDT CHRONIC RENAL IMPAIRMENT IS DEFINED GFR <60 MULTIPLY RESULT BY 1.210 FOR PATIENTS EGFR CALCULATED USING THE IDMS-TRACEABLE MDRD STUDY us Preet Hale MD POINT OF CARE TEST ORDERABLES Fi nal Result [facility] documented in this encounter Visit Diagnoses Not on filedocumented in this encounter
--- OUTSIDE RECORDS SUMMARY | 2024-10-02 18:51 | XMS_ITS | Encounter Summary ---
Author Organization [facility] Address [address] [place] [address] Care Team Providers Care Double End Chucking Machine Operator Name Role Phone Unavailable Primary Care Provider Unavailabl e Encounter Details Date Type Department Care Team (Late st Contact Info) Description 04/10/2022 Results Only [facility] Laboratory Services - [address] [address] Preet Hale MD [address] [place] [phone] Social History Tobacco Use Types Packs/Day [...] Name Priority Date/Time Associated Diagnosis Comments POCT URINE DIPSTICK, CLINITEK Routine 04/10/2022 16:59 EDT documented in this encounter Results * POCT URINE DIPSTICK, CLINITEK (04/10/2022 16:59 EDT) Color (Urine) Yellow YELLOW [facility] Clarify (Urine) Clear [facility]AR [facility] Glucose (Urine) Negative NEGATIVE [facility] Bilirubin (Urine) Negative NEGATIVE [facility] Ketones (Urine) Negative NEGATIVE [facility] Specific [place] (Urine) 1.[address] [facility] Occult Blood (Urine) Negative NEGATIVE [facility] pH (Urine) 7.0 [facility] Protein (Urine) Negative NEGATIVE [facility] Urobilinogen (Urine) 0.2 0.2 - 1.0 EU/dL [facility] Nitrite (Urine) Negative NEGATIVE [facility] Leukocytes (Urine) Negative NEGATIVE [facility] 04/10/2022 16:5 9 EDT us Preet Hale MD POINT OF CARE TEST ORDERABLES Fi nal Result Performing Organization Address City/State/[facility] Co de Phone Number [facility] [address] [place] [address] documented in this encounter Visit Diagnoses Not on filedocumented in this encounter
--- OUTSIDE RECORDS SUMMARY | 2024-10-02 18:51 | XMS_ITS | Encounter Summary ---
Author Organization [facility] Address [address] [place] [address] Care Team Providers Care Software Engineer Backend Name Role Phone Unavailable Primary Care Provider Unavailabl e Encounter Details Date Type Department Care Team (Late st Contact Info) Description 05/21/2023 Results Only [facility] Laboratory Services - [address] [address] Preet Hale MD [address] [place] [phone] Social History Tobacco Use Types Packs/Day [...] Diagnosis Comments POCT URINE DIPSTICK, CLINITEK Routine 05/21/2023 14:16 EDT documented in this encounter Results * (ABNORMAL) POCT URINE DIPSTICK, CLINITEK (05/21/2023 14:16 EDT) Color (Urine) Yellow YELLOW [facility] Clarify (Urine) Clear CLEAR [facility] Glucose (Urine) Negative NEGATIVE [facility] Bilirubin (Urine) Negative NEGATIVE [facility] Ketones (Urine) Negative NEGATIVE [facility] Specific [place] (Urine) 1.015 [facility] Occult Blood (Urine) Trace-inta(A ) NEGATIVE [facility] pH (Urine) 8.5(H) [facility] Protein (Urine) Negative NEGATIVE [facility] Urobilinogen (Urine) 0.2 0.2 - 1.0 EU/dL [facility] Nitrite (Urine) Negative NEGATIVE [facility] Leukocytes (Urine) Negative NEGATIVE [facility] 05/21/2023 14:1 6 EDT us Preet Hale MD POINT OF CARE TEST ORDERABLES Fi nal Result Performing Organization Address City/State/[facility] Co de Phone Number [facility] [address] [place], [place] [id number] documented in this encounter Visit Diagnoses Not on filedocumented in this encounter
--- OUTSIDE RECORDS SUMMARY | 2024-10-02 18:51 | XMS_ITS | Encounter Summary ---
Author Organization [facility] Address [address] [place] [address] Care Team Providers Care Credit Card Interviewer Name Role Phone Unavailable Primary Care Provider Unavailabl e Encounter Details Date Type Department Care Team (Late st Contact Info) Description 08/31/2022 Results Only [facility] Laboratory Services - [facility] [address] [place] [address] Juliana Valente NP [address] [place] [phone] Social History Tobacco Use Types [...] COMPLETE BLOOD COUNT WITH DIFFERENTIAL (AUTO) Routine 08/31/2022 13:41 EST documented in this encounter Results * (ABNORMAL) COMPLETE BLOOD COUNT WITH DIFFERENTIAL (AUTO) (08/31/2022 13:41 EST) WBC 5.8 4.5 - 10.5 x10e3/uL [facility] Lymphocytes 25.7 20.5 - 51.1 % [facility] Monocytes 8.3 1.7 - 9.3 % [facility] Granulocytes 66.0 42.2 - 75.2 % [facility] Lymph # 1.5 1.2 - 3.4 x10e3/uL [facility] Clay # 0.5 0.1 - 0.6 x10e3/uL [facility] Gran # 3.8 1.4 - 6.5 x10e3/uL [facility] RBC 3.67(L) 4.00 - 6.00 x10e6/uL [facility] HGB 11.6 11.0 - 18.0 g/dL [facility] HCT 35.5 35.0 - 60.0 % [facility] MCV 96.8 80.0 - 99.9 fL [facility] MCH 31.5(H) 27.0 - 31.0 pg [facility] MCHC 32.5(L) 33.0 - 37.0 g/dL [facility] RDW 14.1(H) 11.6 - 13.7 % [facility] PLT 234 150 - 450 x10e3/uL [facility] MPV 7.9 7.8 - 11.0 fL [facility] 08/31/2022 13:4 1 EST us Juliana Valente YOUTH CARE WORKER HEMATOLOGY & PF4 ORDERABLES Roberta izquierdo Result [facility] [address] [place] [address] documented in this encounter Visit Diagnoses Not on filedocumented in this encounter
--- OUTSIDE RECORDS SUMMARY | 2024-10-02 18:51 | XMS_ITS | Encounter Summary ---
Author Organization [facility] Address [address] [place] [address] Care Team Providers Care Risk Analyst Name Role Phone Unavailable Primary Care Provider Unavailabl e Encounter Details Date Type Department Care Team (Late st Contact Info) Description 03/07/[address] [facility] Lab - Main [place] [address] [place], [place] [address] Preet Hale MD [address] [place] [phone] Social History Tobacco Use Types Packs/Day [...] Priority Date/Time Associated Diagnosis Comments VITAMIN D 25 POC - [facility] Routine 03/07/2020 12:21 EDT documented in this encounter Results * VITAMIN D 25 POC - [facility] (03/07/2020 12:21 EDT) VIT D, 25 HYDROXY - CV 53 30 - 100 NG/ML 03/08/2020 12:23 EDT [facility] 03/07/2020 12:2 1 EDT 03/07/2020 12:21 EDT Narrative [facility] - 03/08/2020 12:23 EDT CHRONIC RENAL IMPAIRMENT IS DEFINED GFR <60 MULTIPLY RESULT BY 1.210 FOR PATIENTS EGFR CALCULATED USING THE IDMS-TRACEABLE MDRD STUDY us Preet Hale MD CHEMISTRY & BLOOD GAS ORDERABLES Final Result [facility] documented in this encounter Visit Diagnoses Not on filedocumented in this encounter
--- OUTSIDE RECORDS SUMMARY | 2024-10-02 18:51 | XMS_ITS | Encounter Summary ---
Author Organization [facility] Address [address] [place] [address] Care Team Providers Care Fluxer Name Role Phone Unavailable Primary Care Provider Unavailabl e Encounter Details Date Type Department Care Team (Late st Contact Info) Description 05/21/2023 Results Only [facility] Laboratory Services - [facility] [address] [place] [address] Preet Hale MD [address] [place] [phone] Social History Tobacco Use Types [...] Associated Diagnosis Comments VITAMIN D (25,[place]) Routine 05/21/2023 14: 16 EDT documented in this encounter Results * (ABNORMAL) VITAMIN D (25,[place]) (05/21/2023 14:16 EDT) Vitamin D 101(H) 30 - 100 ng/ml [facility] 05/21/2023 14:1 6 EDT us Preet Hale MD CHEMISTRY & BLOOD GAS ORDERABLES Final Result [facility] [address] [place] [address] documented in this encounter Visit Diagnoses Not on filedocumented in this encounter
--- OUTSIDE RECORDS SUMMARY | 2024-10-02 18:52 | XMS_ITS | Encounter Summary ---
Author Organization [facility] [place] [address] Care Team Providers Care Ends Down Checker Name Role Phone Pamdini Garcia MD Primary Care Provider [phone] Encounter Details Date Type Department Care Team (Late st Contact Info) Description 04/14/2022 10:00 AM EDT TH Visit (TeleHealth) Sleep [facility] at [facility] [address] [place] [address] Chio Berumen APRN [facility] [place] [address] ALISON on CPAP Social History Tobacco Use Types Packs/Day Years Used Date Smoking Tobacco: Never Assessed Sex and Gender Information Value Date Recorded Sex Assigned at Not on file Gender Identity Not on file Sexual Orientation Not on file documented as of this encounter Last Filed Vital Signs Vital Sign Reading Time Taken Comments Blood Pressure 117/64 04/13/2022 1:50 PM EDT bianka en last week Pulse - - Temperature - - Respiratory Rate - - Oxygen Saturation - - Inhaled Oxygen Concentration - - Weight 45.4 kg (100 lb) 04/13/2022 1:50 PM EDT Height 154.9 cm (5' 1) 04/13/2022 1:50 PM EDT Body Mass Index 18.89 04/13/2022 1:50 PM EDT documented in this encounter Progress Notes * Chio Berumen APRN - 04/14/2022 10:00 AM EDT Sleep Medicine Telemedicine Follow-Up Note Patient is currently located at their home in [place]. Patient provided verbal consent prior to initiation of this encounter and expressed understanding that the telemedicine visit may be billed similar to a clinic visit CC: Ms. Paula Osullivan is a 41 y.o. female seen for telemedicine follow-up of obstructive sleep apnea. HPI: Sleep Study with MSLT 2017: No snoring was noted during the study. AHI 8. CMS AHI of 0 which includes only apneas and hypopneaswith 4% desaturations noted. OAHI 8. RDI 16. BRET 0. Mean oxygen saturation asleep was 97%. Minimum oxygen saturation asleep of 95%. Zero minutes spent with SpO2 less than or equal to 88%. Review of actigraphy reveals that the patient has a highly erratic wake and sleep cycle. There are noted periods of time where patient appears to be active while in bed, raising the possibility of insomnia. Overall, average time in bed is approximately 12 hours, consistent with hypersomnia, though cannot rule out the possibility of contributing psychiatric conditions (e.g. Depression). PSG and MSLT results are not supportive of idiopathic hypersomnia, with reduced TST and one hour initial latency on PSG (in addition to presence of Sleep disordered breathing), as well as > 8 min latency on MSLT. Weight: 105 lbs CPAP titration 2019: CPAP was titrated from a pressure of 4 cm to 13 cm. Overall, very few in the way of scorable respiratory events were noted. That being said there appeared to be a higher than expected frequency of arousals supine NREM at pressures of 6,7 and 8 cm. Pressures of 8 and 9 cm were adequate supine REM. Pressures of 9-13 cm appeared to be adequate side REM. Pressures of 11 cm and 12 cm appeared to be effective side NREM. WT: 116 lbs Treatment: CPAP Device: RM Pressure: 11 cm Pressure Intolerance: no Supplemental oxygen: no Interface/Mask: Under the nose nasal mask Difficulty tolerating mask interface: it's OK Chin Strap: yes HCC: KMP Update: Continues to receive benefit from CPAP in terms of improved sleep quality and increased daytime energy and alertness. Takes adderall 5 mg BID for ADHD which works well for her. Insomnia is well managed with PRN melatonin. Humidity: yes Dry Mouth/Throat: occ Difficulty Breathing Through Nose/Mouth Breathing: no Symptoms: Patient-reported last 4 scores: [facility] 12/24/2017 10/05/2018 03/12/2021 04/14/2022 [facility] 3 (Low Risk) 7 (Low Risk) 7 (Low Risk) 2 (Low Risk) Insomnia Severity Index 9 (Subthreshold insomnia) 19 (Moderately severe insomnia) - - Snoring: Not on CPAP Nocturnal sleep quality improved: yes Daytime symptoms improved (Daytime sleepiness/fatigue): yes Naps: no Involuntary Dozing: not generally Sleepiness or Drowsiness when driving: no Sleep Pattern: Bedtime: 10p, takes melatonin PRN, melatonin helps, asleep within 10-15 minutes. Position: laterally and prone Rise time: alarm at 5:30, up around 6:3a if working first shift. Occ works second shift-not a typical but happens here and there based on work projects Awakenings: 0-1 time due to thirst, occ to urinate Card Data Download: Date Range: 01/13-04/12/22 Pressure: 11 cm Residual AHI: 0.7 95th% Leak: 23.9 Median Leak: 3.9 Average Usage (Days Used/Hours): 7 hrs 53 min Days of usage: 90/90 % Days used > 4 hours: 97% Previous Card Data Download: Date Range: 12/11-03/10/21 Pressure: 11 cm Residual AHI: 1.1 95th% Leak: 23.4 Median Leak: 5.5 Average Usage (Days Used/Hours): 7 hrs 15 min Days of usage: 87/90 97% % Days used > 4 hours: 91% Current Outpatient Medications: ??? ascorbic acid, Vitamin C, (vitamin C) 500 mg Tablet, Take 500 mg by mouth daily., Disp: , Rfl: ??? Saw [place] Fruit 450 mg Capsule, Take by mouth., Disp: , Rfl: ??? NONFORMULARY REQUEST, 3 times daily. Fiber supplement, Disp: , Rfl: ??? Brindall Mckeno-Chromium (Garcinia Cambogia) 200-500 mcg-mg Tablet, Take by mouth., Disp: , Rfl: ??? buPROPion SR (Wellbutrin SR) 100 mg tablet sustained-release 12 hr, TAKE 1 TABLET BY MOUTH ONCEDAILY WITH THE 150 MG XL FORMULATION TO ACHIEVE A DAILY DOSE OF 250 MG., Disp: , Rfl: ??? buPROPion XL (Wellbutrin XL) 150 mg Tablet Extended Release 24 hr, TAKE 1 TABLET BY MOUTH ONCE DAILY ALONG WITH THE 100 MG SR FORMULATION FOR A TOTAL DAILY DOSE OF 250 MG DAILY FOR CONCENTRATION AND MOOD., Disp: , Rfl: ??? cholecalciferol, Vitamin D3, 50 mcg (2,000 unit) Tablet, Take 6,000 Units by mouth daily., Disp: , Rfl: ??? melatonin 5 mg Tablet, Take 3 mg by mouth as needed. gummies, Disp: , Rfl: ??? BIOTIN ORAL, Take by mouth., Disp: , Rfl: ??? NONFORMULARY REQUEST, Joint supplement, Disp: , Rfl: ??? multivitamin Capsule, Take 1 capsule by mouth daily. Indications: centrum silver, Disp: , Rfl: ??? Macedonian Ginseng Root 518 mg Capsule, Take 1 capsule by mouth., Disp: , Rfl: ??? cyanocobalamin 1,000 mcg Tablet, Take 1,000 mcg by mouth daily., Disp: , Rfl: ??? sertraline (ZOLOFT) 100 mg Tablet, 100 mg 2 times daily., Disp: , Rfl: ??? dextroamphetamine-amphetamine (ADDERALL) 5 mg Tablet, 5 mg 2 times daily. , Disp: , Rfl: ??? pravastatin (PRAVACHOL) 40 mg Tablet, 40 mg daily., Disp: , Rfl: ??? lamoTRIgine (LAMICTAL) 200 mg Tablet, 200 mg 2 times daily., Disp: , Rfl: ??? FERROUS SULFATE, DRIED (IRON, DRIED, ORAL), Take 650 mg by mouth daily. Ferrous glycinate, Disp: , Rfl: ??? diphenhydrAMINE (BENADRYL) 25 mg Capsule, Take 25 mg by mouth nightly as needed for Sleep. Indications: Insomnia, Disp: , Rfl: Active Ambulatory Problems Diagnosis Date Noted ??? ALISON (obstructive sleep apnea) 09/24/2017 ??? UTI (urinary tract infection) 03/20/2022 Resolved Ambulatory Problems Diagnosis Date Noted ??? No Resolved Ambulatory Problems Past Medical History: Diagnosis Date ??? Attention or concentration deficit ??? Depression with anxiety ??? Fe deficiency anemia ??? Hyperreflexia ??? Insomnia ??? TLE (temporal lobe epilepsy) ROS: Constitutional: Weight change: patient not weighed today, based on most recent weight in [facility] weight has been- Wt Readings from Last 3 Encounters: 04/13/22 45.4 kg (100 lb) 03/11/21 45.4 kg (100 lb) 02/11/21 46.3 kg (102 lb) ENT: Nasal Obstruction: no : Nocturia: no Time spent: total time of visit was 20 minutes, including face to face counseling, chart review anddocumentation Assessment: Ms. Paula Osullivan is a 41 y.o. female seen for obstructive sleep apnea. The data download reveals the AHI and leak appear to be well controlled. Patient is doing well with the current pressure and reports improvement, noting ongoing benefit with sleep quality, daytime energy and alertness. Her usage is excellent and she meets compliance. Recommendations: Keep CPAP at 11 cm Call DME company for questions on machine, supply replacements, billing, and for confirming compliance met Continue to get PAP supplies at the recommended replacement intervals-discussed with patient today Driving safety discussed, recommend patient not drive if drowsy, if drowsy while driving, pull overand nap. Follow-up: 1 year or sooner if needed The patient indicates understanding of these issues and agrees with the plan. CHIO BERUMEN APRN documented in this encounter Plan of Treatment Not on file documented as of this encounter Visit Diagnoses Diagnosis ALISON on CPAP Obstructive sleep apnea (adult) (pediatric) documented in this encounter Care Teams Ends Down Checker Relationship Specialty Start Date End Date Padmini Garcia MD [address] [address] PCP - General Psychiatry 06/30/17 documented as of this encounter
--- OUTSIDE RECORDS SUMMARY | 2024-10-02 18:52 | XMS_ITS | Encounter Summary ---
Author Organization [facility] Address [facility] [place] [address] Care Team Providers Care Carbide Powder Processor Name Role Phone Padmini Garcia MD Primary Care Provider [phone] Reason for Visit * Consultation (Routine) - Specialty Diagnoses / Procedures Referred By Contac t Referred To Contact Sleep Center Diagnoses Hypersomnia Procedures PRG ACTIGRAPHY TESTING RECORDING ANALYSIS I&R PRG SCHOOL CAFETERIA HEAD COOK SLEEP LATENCY/MAINT OF WAKEFULNESS TSTG PRG POLYSOM 6+ YRS SLEEP W 4+ ADDL ROBERTA Iveth Lutz MD [facility] [place] [address] [facility] Sleep [facility] [address] [place] [address] Referral ID Status Reason Start Date Expiration Date V isits Requested Visits Authorized [id number] Consult, Test & Treat 06/30/2017 06/30/2018 3 3 Encounter Details Date Type Department Care Team (Late Contact Info) Description 09/05/2017 7:30 PM EST Procedure visit [facility] [address] [place] [address] Guero Patterson MD [facility] [place] [address] ALISON (obstructive sleep apnea) Social History Tobacco Use Types Packs/Day Years Used Date Smoking Tobacco: Never Assessed Sex and Gender Information Value Date Recorded Sex Assigned at Not on file Gender Identity Not on file Sexual Orientation Not on file documented as of this encounter Last Filed Vital Signs Vital Sign Reading Time Taken Comments Blood Pressure 118/78 09/05/2017 8:00 PM EST Pulse - - Temperature - - Respiratory Rate - - Oxygen Saturation 99% 09/05/2017 8:00 PM EST Inhaled Oxygen Concentration - - Weight 49.2 kg (108 lb 8 oz) 09/05/2017 8:00 PM EST Height 154.9 cm (5' 1) 09/05/2017 8:00 PM EST Body Mass Index 20.5 09/05/2017 8:00 PM EST documented in this encounter Progress Notes * Guero Patterson MD - 09/05/2017 7:30 PM EST Images from the original note were not included. REPORT OF DIAGNOSTIC POLYSOMNOGRAM IDENTIFYING INFORMATION Paula Osullivan : 1980 REFERRING PROVIDER & PCP: Padmini Garcia MD History Of Present Illness: Paula Osullivan is a 36 y.o. female with a concurrent medical history including depression, anxiety, temporal lobe epilepsy, iron deficiency anemia; who presents for a polysomnogram for complaints of life-long hypersomnia, sleeping upwards of 16 hours a day, per patient reports. Concurrent medications include Zoloft 100mg BID & Lamictal 200mg BID. Polysomnography: The patient's sleep was evaluated for one night at the [facility]. Sleep was monitored in accordance with recommended AASM guidelines. The recording also included oral/nasal airflow, chest and abdominal respiratory effort, nasal pressure, single channel EKG, intercostalEMG, bilateral tibialis EMG, and oxygen saturation (by pulse oximeter). -- Technical Comment: Total sleep time for this study was 305 minutes. -- Sleep/EEG: The patient had a 11 Hz posterior dominant rhythm when awake with eyes closed. Sleep latency was prolonged at 51 min. Sleep efficiency was 62% which is significantly reduced, with fragmented sleep and awakenings. Supine sleep was observed for 40% of the study. NREM sleep was noted; S7jeopc reduced at 4%, likely secondary to medication. No REM sleep was seen. No EEG abnormalities. -- Respiratory: No snoring was noted during the study. AHI 8. CMS AHI of 0 which includes only apneas and hypopneas with 4% desaturations noted. OAHI 8. RDI 16. BRET 0. Mean oxygen saturation asleep was 97%. Minimum oxygen saturation asleep of 95%. Zero minutes spent with SpO2 less than or equal to 88%. -- EKG: Normal sinus rhythm without ectopy. Mean heart rate of 82 bpm. Range of 60 bpm to 105 bpm. -- EMG: PLM index of 0 / hr. -- Study Conditions: --Head of the bed: flat, one pillow. --Supplemental oxygen: none. --Medications used on night of study: Lamictal 200mg, Zoloft 100mg, Pravastatin 40mg, Ferrous Gluconate 234 mg. - Subjective: The post sleep study questionnaire indicated the following: -- ...how did you sleep last night: Much worse -- ..how well rested and alert do you feel right now: Average Assessment: Ms. Paula Osullivan is a 36 y.o. female whose polysomnogram reveals obstructive sleep apnea, mild by AHI, mild to moderate by arousal criteria. Prolonged initial latency noted, though review of patient's actigraphy shows a highly variable bedtime which may be contributing to the latency(see actigraphy report on 23 Aug 2017 for further discussion). NREM sleep noted as reduced, likely secondary to SSRI use. No REM sleep was observed through the study. Scoring sleep onset was more technically challenging in this study given presence of eye movement, likely secondary to medication (SSRI). No hypoxia during the study. EKG was unremarkable; review of epoch averages show a max heart rate of 90 bpm, at the upper limit of normal while sleeping. Of note, total sleep time for this study was 305 minutes which is below the minimum time for next day MSLT (360 minutes of sleep). Additionally, sleep onset was approximately one hour (which is what patient also reported). Recommendations: 1. Please see MSLT note for full discussion and disposition. Case discussed and assessed with Dr. Wolf. Please see his addendum for further information, exceptions and additions. Guero Patterson MD Sleep Fellow CC: Padmini Garcia MD [facility] REPORT of Diagnostic Polysomnography Patient Name: Paula Osullivan Study Date: 09/05/2017 Age & Sex: 36 y.o. Female Height: 5'1 Date of : 1980 Weight: 105.5 lbs BMI: 19.9 Referring Provider: Recording Technologist: JOB CLIFFORD Scoring Technologist: MALIKA PIPER, YESENIA, RPSGT, RST Sleep Fellow: GUERO PATTERSON M.D. Sleep Specialist: IVETH WOLF M.D. Scoring Technologist Comments: ECG: NSR Ectopy: None noted. Description of Study: Diagnostic polysomnography was performed utilizing frontal, central & occipital EEG, EOG, submentalis EMG, oronasal thermocouple, nasal pressure, ECG, thoracic and abdominalinductance plethysmography, right and left anterior tibialis EMG, snore sensor, and pulse oximetry according to AASM established guidelines. Study Details & Sleep Architecture Diagnostic Start Time (Lights Off): 21:55:03 Total Recording Time: 497.0 min Diagnostic End Time (Lights On): 06:12:04 Total Sleep Time (minutes): 305.5 Total Num. of Stage Shifts: 102 Total Sleep Time (hrs:min): 5:5.5 Total Num. of Awakenings: 23 Sleep Onset Latency: 50.5 min Total Num. of Trans. to N1: 36 Sleep Efficiency: 61.5% Total Num. of REM Periods: 0 Stage Results: Time (minutes) %TST Latency (minutes) WASO: 141.0 - - N1: 28.5 9.3 0.0 N2: 266.0 87.1 10.5 N3: 11.0 3.6 43.0 REM: 0.0 0.0 - - (minus wake) Arousal Counts: NREM REM Total Spontaneous: 157 (30.8/hr) 0 (-/hr) 157 (30.8/hr) Sum of All Arousals: 238 (46.7/hr) 0 (-/hr) 238 (46.7/hr) Spontaneous arousals include only EEG arousals not associated with a respiratory event or PLM. Body Position: Supine Non-Supine Non-REM: 122.0 min 183.5 min REM: 0.0 min 0.0 min Total Sleep: 122.0 min (39.9%) 183.5 min (60.1%) Respiratory Events Apneas Obstructive Mixed Central Total Apneas Total Count: 0 0 0 0 Mean Duration (sec): 0 0 0 0 Longest Duration (sec): 0 0 0 - Index (REM/NREM): 0.0 / 0.0 0.0 / 0.0 0.0 / 0.0 0.0/ 0.0 Index (Sup./Non-Sup.): 0.0 / 0.0 0.0 / 0.0 0.0 / 0.0 0.0/ 0.0 Index (Total): 0.0 0.0 0.0 0.0 Hypopneas & RERAs Hypopnea Definitions: Hypopnea* CMS Hypopnea 3% desat caro. Hypopneas All RERA Total Count: 0 42 42 40 Mean Duration (sec): - 12.4 12 18.0 Longest Duration (sec): 0.0 25.9 26 31.9 Index (REM/NREM): 0/ 0 0.0/ 8.2 -/ 16.1 Index (Sup./Non-Sup.): 0.0 / 0.0 13.3/ 4.9 7.4 / 8.2 Index (Total): 0.0 8.2 8.2 7.9 *[facility]-defined hypopneas include only hypopneas with a >=4% oxygen desaturation. Includes hypopneas with an arousal or with a 3%-4% desaturation. [facility] Hypopneas not included. Periodic Breathing Total Sleep Time Time (minutes) 0.0 Time (%Sleep Time) 0.0 AHI: Includes all apneas & all hypopneas associated with an arousal or a >= 3% desaturation. Supine Non-Sup. REM NREM Total Count: 27 15 0 42 42 Index (events/hr): 13.3 4.9 0.0 8.2 AHI = 8.2 [facility] AHI: Includes all apneas & only hypopneas associated with a >= 4% desaturation. Supine Non-Sup. REM NREM Total Count: 0 0 0 0 0 Index (events/hr): 0.0 0.0 0 0.0 CMS = 0.0 Obstructive AHI: Includes obstructive & mixed apneas as well as all hypopneas. Excludes centralapneas and RERAs. Supine Non-Sup. REM NREM Total Count: 27 15 0 42 42 Index (events/hr): 13.3 4.9 0.0 8.2 OAHI = 8.2 RDI: Includes all apneas, all hypopneas, all RERAs, and all ???Unsure??? events. Supine Non-Sup. REM NREM Total Count: 42 40 0.0 82.0 82 Index (events/hr): 20.7 13.1 0.0 16.1 RDI = 16.1 Oxygen Saturation Details SpO2 Awake NREM REM All Sleep TOMMIE Report Sleep Mean: 97% 97% -% 97% 3% TOMMIE 0.3 0.0 Minimum: - 95% -% 95% 4% TOMMIE 0.1 0.0 SpO2 Awake (minutes) NREM (minutes) REM (minutes) All Sleep (minutes) <=90% 0.4 0.0 0.0 0.0 <=89% 0.4 0.0 0.0 0.0 <=88% 0.4 0.0 0.0 0.0 90-99% 160.5 304.0 0.0 304.0 80-89.9% 0.0 0.0 0.0 0.0 79-79.9% 0.0 0.0 0.0 0.0 60-69.9% 0.0 0.0 0.0 0.0 50-59.9% 0.0 0.0 0.0 0.0 <=50% 0.4 0.0 0.0 0.0 Cardiac Details Heart Rate (bpm) Total Study NREM REM All Sleep Minimum - 60 - 60 Maximum 125 105 - 105 Mean - 82 0 82 Limb Movement Details Periodic Limb Movements Total PLMs (and Index) PLMs w/ Arousals (and Index) Wake (after ???Lights Off???): 0 (0.0/hr) 0 (0.0/hr) NREM: 0 (0.0/hr) 0 (0.0/hr) REM: 0 (0.0/hr) 0 (-/hr) Total Sleep: 0 (0.0/hr) 0 (0.0/hr) Graphs PLMs Body Position Supplemental Oxygen * Iveth Wolf MD - 09/05/2017 7:30 PM EST I reviewed the polysomnography in its entirety. I have reviewed Tana's note and agree with the findings and recommendations. IVETH WOLF MD documented in this encounter Plan of Treatment Scheduled Referrals Name Type Priority Associated Diagnoses Orde r Schedule Referral to Sleep Disorders Center Outpatient Referral Routine Hypersomnia Ordered: 06/30/2017 documented as of this encounter Visit Diagnoses Diagnosis ALISON (obstructive sleep apnea) Obstructive sleep apnea (adult) (pediatric) documented in this encounter Care Teams Carbide Powder Processor Relationship Specialty Start Date End Date Padmini Garcia MD [address] [address] PCP - General Psychiatry 06/30/17 documented as of this encounter
--- OUTSIDE RECORDS SUMMARY | 2024-10-02 18:52 | XMS_ITS | Encounter Summary ---
Author Organization [facility] Address [address] [place] [address] Care Team Providers Care Mine Inspector Federal Name Role Phone Unavailable Primary Care Provider Unavailabl e Encounter Details Date Type Department Care Team (Late st Contact Info) Description 03/31/2012 Historical Results Only [facility] - Main [place] [address], [place] [id number] Ashley Hooper MD [address] [place] [phone] Social History Tobacco Use Types Packs/Day Years [...] Procedure Name Priority Date/Time Associated Diagnosis Comments PAP TEST Routine 03/31/2012 documented in this encounter Results * PAP TEST (03/31/2012) 03/31/2012 03/31/2012 18: 16 EDT Narrative [facility] - 04/05/2012 16:10 EDT ----- ------- Name: PAULA JAMES ?: [birth year] ?Age/Sex: 39/F ?Unit#: [id number] ? Loc: LAB.OPX ? Status: REG REF ?? Reg Date: 03/31/12 ? Pt.Phone Number: ? ----- ------- Specimen: [id number] ?STATUS: SOUT ?Spec Date:03/31/12 ? Physician Copies: ?Ashley Hooper MD ?? Tissues: ? Cervical/Endo Pap ? CPT: 80242 ?? Units: ??1 ----- ------- ? CYTOLOGY DIAGNOSIS SPECIMEN ADEQUACY: ?Satisfactory for evaluation. Transformation zone component ABSENT. GENERAL CATEGORIZATION: ?Negative for Intraepithelial Lesion or Malignancy DESCRIPTIVE DIAGNOSIS: ? Negative for Intraepithelial Lesion or Malignancy. RECOMMENDATIONS/COMMENTS: ?None. ----- ------- ORDER QUERIES: LMP: ? - ? N Post ? N ??PREVIOUS ATYPICAL: Y BCP/HRT? ?? Rad Rx? N IUD? Y ??PAP PLUS HPV?REFLEX TO HR-HPV IF ASCUS ?? REFLEX TO HPV 16/18 IF HPV POS/PAP NEG ?? HPV REGARDLESS?RFLX HPV IF LSIL ?? IF ASCUS DO HPV? Y Signed Tiny Cottrell CT(ASCP) 04/05/12 By the signature above, the attending physician certifies that he/she has personally conducted a gross and/or microscopic examination of the described specimens and rendered or confirmed the above diagnosis. Test Performed by [facility], [address] [place], [place] [id number] Concrete Block Mason: Lisandra Muir MD PHD ----- ------- us Ashley Hooper MD PATHOLOGY ORDERABLES Final Res ult [facility] documented in this encounter Visit Diagnoses Not on filedocumented in this encounter
--- OUTSIDE RECORDS SUMMARY | 2024-10-02 18:52 | XMS_ITS | Encounter Summary ---
Author Organization [facility] Address [address] [place] [address] Care Team Providers Care Customer Support Representative Name Role Phone Unavailable Primary Care Provider Unavailabl e Encounter Details Date Type Department Care Team (Late st Contact Info) Description 10/22/2017 Historical Results Only [facility] - Main [address] [id number] Carrillo Everett MD [address] [place] [phone] Social History Tobacco Use Types Packs/Day [...] Name Priority Date/Time Associated Diagnosis Comments POCT DRUG SCREEN, URINE Routine 10/22/2017 15:41 EST documented in this encounter Results * POCT DRUG SCREEN, URINE (10/22/2017 15:41 EST) AMPHETAMINES POS NEGATIVE 10/22/2017 15:42 [facility] BARBITURATES,UR - CV NEG NEGATIVE 10/22/2017 15:42 [facility] BENZODIAZEPINES NEG NEGATIVE 8 15:42 [facility] COCAINE,URINE - CV NEG NEGATIVE 10/22/2017 15:42 [facility] MAMP (METHAMPHETAMINES - CV NEG NEGATIVE 10/22/2017 15:42 [facility] MARIJUANA,URINE - CV NEG NEGATIVE 10/22/2017 15:42 [facility] MTD (METHADONE) - [facility] NEG NEGATIVE 10/22/2017 15:42 [facility] OPIATES,URINE - [facility] NEG NEGATIVE 10/22/2017 15:42 [facility] OXY (OXYCODONE) - [facility] NEG NEGATIVE 10/22/2017 15:42 [facility] PCP (PHENCYCLIDINE) - [facility] NEG NEGATIVE 10/22/2017 15:42 [facility] PROPOXYPHENE (PPX) - [facility] NEG NEGATIVE 10/22/2017 15:42 [facility] TRICYCLIC ANTIDEPRESSANTS - [facility] NEG NEGATIVE 10/22/2017 15:42 [facility] 10/22/2017 15:4 1 EST 10/22/2017 15:41 EST us Carrillo Everett MD POINT OF CARE TEST ORDERABLES Fi nal Result [facility] documented in this encounter Visit Diagnoses Not on filedocumented in this encounter
--- OUTSIDE RECORDS SUMMARY | 2024-10-02 18:52 | XMS_ITS | Encounter Summary ---
Author Organization [facility] Address [facility] [place] [address] Care Team Providers Care Mold Mover Name Role Phone Padmini Garcia MD Primary Care Provider [phone] Reason for Referral * Consultation (Routine) - Closed Specialty Diagnoses / Procedures Referred By Contac t Referred To Contact Sleep Center Diagnoses ALISON (obstructive sleep apnea) Procedures PRG POLYLSOM 6+ YRS SLEEP W CPAP W 4+ ADDL ROBERTA ATTArsh León MD [facility] [address] [facility] [address] [place] [address] Referral ID Status Reason Start Date Expiration Date V isits Requested Visits Authorized [id number] Closed Test Only 10/05/2018 10/05/2019 1 1 Encounter Details Date Type Department Care Team (Late st Contact Info) Description 10/05/2018 11:30 AM EST [facility] [address] [place] [address] Arsh Wolf MD [facility] [place] [address] ALISON (obstructive sleep apnea); Hypersomnia Social History Tobacco Use Types Packs/Day Years Used Date Smoking Tobacco: Never Assessed Sex and Gender Information Value Date Recorded Sex Assigned at Not on file Gender Identity Not on file Sexual Orientation Not on file documented as of this encounter Last Filed Vital Signs Vital Sign Reading Time Taken Comments Blood Pressure 124/73 10/05/2018 11:24 AM EST Pulse 90 10/05/2018 12:00 PM EST Temperature - - Respiratory Rate - - Oxygen Saturation 98% 10/05/2018 11:24 AM EST Inhaled Oxygen Concentration - - Weight 47.2 kg (104 lb) 10/05/2018 11:24 AM EST Height 154.9 cm (5' 1) 10/05/2018 11:24 AM EST Body Mass Index 19.65 10/05/2018 11:24 AM EST documented in this encounter Progress Notes * Arsh Wolf MD - 10/05/2018 11:30 AM EST Sleep Medicine Follow-Up Note Chief Complaint: Hypersomnia HPI: Ms. Paula Osullivan is a 37 y.o. female seen at for follow-up regarding obstructive sleep apnea and hypersomnia. Summary: Consult 06/30/17 Hypersomnia - long sleep times if left undisturbed, adderal and caffeine helpful Occasional sleep onset insomnia No ancillary sx of narcolepsy No snoring Plan: Actigraphy, PSG, MSLT (on zoloft and lamictal but off adderal) Actigraphy 08/23/17 Highly erratic sleep schedule with average sleep period > 10 hrs PSG 09/05/17 AHI of 8, RDI of 16, CMS AHI of zero, min sat of 95% Sleep effecincy of 62% and total sleep time reduced at 305 minutes Latency to sleep 51 minutes MSLT 09/06/17 8.1 min mean latency but no SOREMs - on SSRI Difficult to score given presence of SSRI Plan: Regularize schedule, auto CPAP 5-1 5mc KE 12/24/17 Auto CPAP 5-15 cm With P10 underwriter, no chin strap EDS improved with Epworht of 8 Average usage days used of 7 hrs 51 min Plan Follow up one year, refit nasal pillows to improve comfort Today: The patient returns in follow up. The CPAP does not seem to be as working as well. She started to feel this way at the end of the summer/ early fall. When she first went on the CPAP she would wake onher own after 7 hrs and feel refreshed. She is now back to sleeping longer and wanting naps. The desire to nap had resolved with CPAP initially. She has resorted to caffeine pills to help her stay awake. She is also aware of waking up now at night - when first on the CPAP she would sleep through the night. She reports her cognitive problems had improved on CPAP although she continued on Adderal. The cognitive problems have also worsened as of late - she is forgetful. Doubling the Adderall helped some - this was done at the end of June. She now feels the same wether or not she uses the CPAP. Unclear what precipitated the decline in benefit. She wonders if her symptoms worsen at the end of the summer in general. She had an episode and is unsure what it was. She wonders if she may have had a seizure - no loc, different than her past seizures, 2 weeks ago. She felt jittery. She had a feeling of something not being right to start. She describes an awareness of something happening. She felt the need to curl up in a ball and put a blanket over her head to shut things out. She felt like she was being overstimulated. Lasted 10 min. Back to normal when ended. Witness did not report any abnormal movements etc. This occurred when she took her stimulant and caffeine at the same time. She was told recent MRI of the brain was normal. She has not discussed this with her PCP who has been treating her seizures with lamictal. Pressure feels fine when the mask is seated properly. Having trouble having the mask fit properly. She uses a nasal mask. The silicone liner is 1-2 mo old. New liner does not make it fit any better. She struggles to get it to stop hissing when she goes off to sleep. She does not know if the mask iswhy she wakes up. Treatment: Auto CPAP Pressure: 5-15 cm Interface: nasal mask Fit: see above Chin strap: no Patient perceived outcome: see above Ongoing Snoring: no reported snoring with CPAP Mouth Breathing: no Dry Mouth in AM: no Nocturnal Gasping: no ROS: ENT: Nasal Obstruction: no CONSTITUTIONAL: Weight: up in the last few months she reports. Patient thinks the scale was 113 lbstoday and that the nurse entered the wrong weight. Sleep Pattern: To bed 10:30-12 to bed Some trouble getting sleep with the hissing. Wakes mulitple x per night, had been better with the CPAP initially Waking up 11-12 if no alarm On workdays (5 days per week) she sets an alarm 6-6:30 am - hits snooze for one hour or so Was sleeping 11-6 and doing well when the CPAP was working Questionnaires: Patient-reported scores: [facility] 10/05/2018 [facility] 7 Insomnia Severity Index 19 (Moderately severe insomnia) [facility] 12/24/2017 10/05/2018 [facility] 3 7 Insomnia Severity Index 9 (Subthreshold insomnia) 19 (Moderately severe insomnia) Daytime Symptoms: Naps: midday on weekends when she can - she naps for about 3 hrs Involuntary Dozing: no but she feels her brain is shutting down at times - this had gone away with the CPAP Driving: The patient does report difficulty with sleepiness and driving. OK if she takes her Adderal. Was better when first on CPAP. Compliance Card Data: Date Range: 07/05/18 to 10/02/18 Setting: auto CPAP 5-15 cm, 95th% pressure of 7 cm, maximum of 8 cm, median of 5.3 cm Residual AHI: 0.7 Vibratory Snore Index: n/a % Night in Large Leak: n/a but 95th% leak of 15 lpm Average usage days used: 7 hrs 21 min % Days used: 90% % Days with USage > 4 hrs: 83% Patient Active Problem List Diagnosis Code ??? Hypersomnia G47.10 ??? ALISON (obstructive sleep apnea) G47.33 Current Outpatient Medications Medication Sig Dispense Refill ??? multivitamin Capsule Take 1 capsule by mouth daily. Indications: centrum silver ??? Occitan Ginseng Root (GINSENG TURKISH) 518 mg Capsule Take 1 capsule by mouth. ??? cyanocobalamin 1,000 mcg Tablet Take 1,000 mcg by mouth daily. ??? sertraline (ZOLOFT) 100 mg Tablet 100 mg 2 times daily. ??? dextroamphetamine-amphetamine (ADDERALL) 5 mg Tablet 5 mg 2 times daily. ??? pravastatin (PRAVACHOL) 40 mg Tablet 40 mg daily. ??? lamoTRIgine (LAMICTAL) 200 mg Tablet 200 mg 2 times daily. ??? melatonin 3 mg Tablet Take by mouth nightly as needed. ??? diphenhydrAMINE (BENADRYL) 25 mg Capsule Take 25 mg by mouth nightly as needed for Sleep. Indications: Insomnia ??? FERROUS SULFATE, DRIED (IRON, DRIED, ORAL) Take by mouth. ??? cholecalciferol, Vitamin D3, 50,000 unit Capsule Take by mouth. No current facility-administered medications for this visit. No Adderall today, Adderall 5 mg bid is the usual dose. Soc Hx: Alcohol: deferred Caffeine: soda across the day - 4 cans per day, more on weekends, stops 4-5 hrs before bed. 100 mg caffeine pill once a day. Patient does drive. 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 She often is walking around. PE: General: Female in nad Body mass index is 19.65 kg/m??. Vitals: 10/05/18 1124 BP: 124/73 BP Location (NBP): Right arm Patient Position: Sitting BP Cuff Sizes: Adult (25-34 cm) Pulse: (!) 108 SpO2: 98% Weight: 47.2 kg (104 lb) Height: 154.9 cm (5' 1) Wt Readings from Last 5 Encounters: 10/05/18 47.2 kg (104 lb) 09/05/17 49.2 kg (108 lb 8 oz) 06/30/17 47.2 kg (104 lb) Pul: Respirations: even and not labored Waking saturation at rest: 98% Assessment: Ms. Paula Osullivan is a 37 y.o. female who is seen for follow-up of obstructive sleep apnea. She had an initial good response to CPAP (feeling more rested, sleeping well, cognitive sx improved) but in recent months has had recurrent symptoms. She reports some weight gain and thinks thenurse entered the wrong weight today - patient said the scale read 113 lbs. Mask fit has not been ideal either which may contribute to the problems she is having. We will start by a change to auto CPA 7-15 cm from 5-15 cm and a mask refitting with KMP. I will schedule her for a CPAP titration as well but if she does well with the change in pressure she will let me know and we can decide if we want to proceed with the CPAP titration or not. It is unclear to what her spell represents. It was different than her past seizures and she had no loss of consciousness. Given she felt jittery and had taken a caffeine pill and adderal close together it may very well be excess caffeine. I recommended she follow up with her PCP who has been treating her seizures. Her pulse today was somewhat elevated and she reports no stimulants today. Monitroing of her pulse recommended and it if remains elevated seeing her PCP also suggested. Time spent face to face: 30 min Time spent devoted to counseling and discussion: 18 min Recommendations: 1) CPAP auto 7-15 cm 2) Mask refitting with KMP 3) Patient to follow up with PCP re spell and pulse as above 4) Driving safety reviewed 5) Avoid caffeine pills The patient indicates understanding of these issues and agrees with the plan. documented in this encounter Plan of Treatment Scheduled Referrals Name Type Priority Associated Diagnoses Orde r Schedule Referral to Sleep Disorders Center Outpatient Referral Routine ALISON (obstructive sleep apnea) Ordered: 10/05/2018 documented as of this encounter Visit Diagnoses Diagnosis ALISON (obstructive sleep apnea) Obstructive sleep apnea (adult) (pediatric) Hypersomnia Hypersomnia, unspecified documented in this encounter Care Teams Mold Mover Relationship Specialty Start Date End Date Padmini Garcia MD [address] [address] PCP - General Psychiatry 06/30/17 documented as of this encounter
--- OUTSIDE RECORDS SUMMARY | 2024-10-02 18:52 | XMS_ITS | Encounter Summary ---
Author Organization [facility] [place] [address] Care Team Providers Care Senior Wind Energy Consultant Name Role Phone Padmini Garcia MD Primary Care Provider Encounter Details Date Type Department Care Team (Late st Contact Info) Description 01/29/2019 Orders Only Sleep Center at [address] [place] [address] Su Garcia MD [facility] SLEEP [place] [address] ALISON (obstructive sleep apnea) (Primary Dx) Social History Tobacco Use Types Packs/Day Years Used Date Smoking Tobacco: Never Assessed Sex and Gender Information Value Date Recorded Sex Assigned at Not on file Gender Identity Not on file Sexual Orientation Not on file documented as of this encounter Plan of Treatment Not on file documented as of this encounter Visit Diagnoses Diagnosis ALISON (obstructive sleep apnea)- Primary Obstructive sleep apnea (adult) (pediatric) documented in this encounter Care Teams Senior Wind Energy Consultant Relationship Specialty Start Date End Date Padmini Garcia MD [facility] [address] [place] [address] PCP - General Psychiatry 06/30/17 documented as of this encounter
--- OUTSIDE RECORDS SUMMARY | 2024-10-02 18:52 | XMS_ITS | Encounter Summary ---
Author Organization [facility] [place] [address] Care Team Providers Care Lead Bi Developer Name Role Phone Padmini Garcia MD Primary Care Provider Encounter Details Date Type Department Care Team (Late st Contact Info) Description 09/27/2017 Orders Only Sleep Center at [facility] [address] [place] [address] Андрей Fajardo MD [facility] [address] [place] [address] ALISON (obstructive sleep apnea) (Primary Dx) Social History Tobacco Use Types Packs/Day Years Used Date Smoking Tobacco: Never Assessed Sex and Gender Information Value Date Recorded Sex Assigned at Not on file Gender Identity Not on file Sexual Orientation Not on file documented as of this encounter Progress Notes * Андрей Fajardo MD - 09/27/2017 6:15 PM EST APAP 5-15 cm via KMP ordered documented in this encounter Plan of Treatment Not on file documented as of this encounter Visit Diagnoses Diagnosis ALISON (obstructive sleep apnea)- Primary Obstructive sleep apnea (adult) (pediatric) documented in this encounter Care Teams Lead Bi Developer Relationship Specialty Start Date End Date Padmini Garcia MD [facility] [address] [place] [address] PCP - General Psychiatry 06/30/17 documented as of this encounter
--- OUTSIDE RECORDS SUMMARY | 2024-10-02 18:52 | XMS_ITS | Encounter Summary ---
Author Organization [facility] Address [facility] [place] [address] Care Team Providers Care Wood Fence Installer Name Role Phone Padmini Garcia MD Primary Care Provider [phone] Reason for Visit * Consultation (Routine) - Specialty Diagnoses / Procedures Referred By Contac t Referred To Contact Sleep Center Diagnoses Hypersomnia Procedures PRG ACTIGRAPHY TESTING RECORDING ANALYSIS I&R PRG CONSOLE ATTENDANT SLEEP LATENCY/MAINT OF WAKEFULNESS TSTG PRG POLYSOM 6+ YRS SLEEP W 4+ ADDL ROBERTA Arsh Lutz MD [facility] [place] [address] [facility] [address] [place] [address] Referral ID Status Reason Start Date Expiration Date V isits Requested Visits Authorized [id number] Consult, Test & Treat 06/30/2017 06/30/2018 3 3 Encounter Details Date Type Department Care Team (Late Contact Info) Description 09/06/2017 7:00 AM EST Procedure visit Sleep Center at [facility] [address] [place] [address] Guero Patterson MD [facility] [place] [address] Hypersomnia Social History Tobacco Use Types Packs/Day Years Used Date Smoking Tobacco: Never Assessed Sex and Gender Information Value Date Recorded Sex Assigned at Not on file Gender Identity Not on file Sexual Orientation Not on file documented as of this encounter Progress Notes * Guero Patterson MD - 09/06/2017 7:00 AM EST Images from the original note were not included. REPORT OF MULTIPLE SLEEP LATENCY TEST IDENTIFYING INFORMATION: Patient's Name: Paula Osullivan Date of : 1980 REFERRING PHYSICIAN: No primary care provider on file. PRIMARY CARE PHYSICIAN: Padmini Garcia MD Date of Service: 2016 Identification: Paula Osullivan is a 36 y.o. female with a history of including depression, anxiety, temporal lobe epilepsy, iron deficiency anemia; who presents for a Multiple Sleep Latency Test (MSLT) for complaints of life-long hypersomnia, sleeping upwards of 16 hours a day, per patient reports. Concurrent medications include Zoloft 100mg BID & Lamictal 200mg BID. MSLT: The patient's sleep was evaluated for five naps at the Sleep Disorders Center after completion of an overnight polysomnogram. For results of polysomnogram, please see separate report. Protocol used was in accordance with recommended AASM guidelines. The following channels were recorded: EEG, EOG channels, chin EMG, and a single-lead ECG. Study Conditions: The patient's sleep diary were not available/returned. Actigraphy was performed and showed an average of 10 hours 37 minutes of sleep per night during the two weeks prior to testing. Please see actigraphy report from 23 Aug 2017 for further details. The patient reports taking the following medications, which may impair the results of the MSLT: Zoloft . A urine sample was obtainedfrom the patient between naps four and five, and the result of the urine drug screen was unremarkable. - Technical Limitations: identification of sleep onset was challenging in scoring due to the presence of ongoing eye movements, likely secondary to medication (SSRI). Stage N2 was easier to identify. Findings: - Sleep/EEG: The study started at 09.55 am and ended at 4.13 pm. The sleep onset latency averaged over the five naps was 8.1 minutes. REM sleep was observed in none of the five naps. - ECG: Normal sinus rhythm. Assessment: Paula Osullivan is a 36 y.o. female who underwent multiple sleep latency test to evaluate the patient's hypersomnia. During this study, no sleep- onset REM periods were observed. This MSLTis equivocal. Mean sleep onset over the five naps averaged over eight minutes without any SOREMs. Of note, patient had reduced total sleep time on her overnight PSG (having just over five hours of TST), raising the possibility of a reduced MSLT sleep latency from inadequate sleep from the night prior. Overall - taking into account Ms. Osullivan's actigraphy, PSG and MSLT - no definitive diagnosis of hypersomnia can be made. Actigraphy reports long sleep times, suggestive of idiopathic hypersomnia, though with periods of increased activity in bed (perhaps over-reporting bed time versus insomnia). PSG and MSLT results are not supportive of idiopathic hypersomnia, with reduced TST and one hour initial latency on PSG (in addition to presence of Sleep disordered breathing), as well as > 8 min latency on MSLT. Moving forward, will recommend patient work on optimizing her sleep scheduling. Will recommend establishing a fixed wake time and stimulus control if having difficulties with initiation of sleep. Will also recommend reducing time in bed. If insomnia becomes significant, one could consider CBT-I referral. Additionally, will recommend consideration of PAP therapy given Sleep disordered breathing and presenting symptoms. Will recommend APAP 5 - 15 cm to target SDB and monitored for improvement in symptoms. Will recommend continued close follow-up with the Sleep Disorders Center. Disposition: Ms. Osullivan was contacted via phone. Discussed all testing (actigraphy, PSG, MSLT), results and recommendations. She denies any insomnia. She is agreeable to working on optimizing her sleep scheduling and developing a fixed wake time (though states she there is upwards of a 10 hours variation in wake time between on and off days); encouraged setting a time and discussed strategies toaid in behavioral changes. She is also agreeable to CPAP trial. Reasons to treat sleep apnea discussed. Need for adherence and expected follow- up discussed. Expectations around PAP usage discussed. The patient will call with problems or concerns. [facility] requested to be [facility] in [place]. Recommendations: 1. Sleep scheduling optimization, as noted above. 2. APAP 5-15 cm trial via KM. 3. Follow-up appointment with Dr. Wolf in 6-8 weeks. The study was reviewed and case discussed with Dr. Wolf who participated in the formulation ofthe above assessment and plan. Please see his addendum for further information, clarification, and exceptions. CC: Padmini Garcia MD [facility] REPORT of Diagnostic Polysomnography Date of Study: 09/06/2017 Patient Name (MRN): Paula Osullivan ( ) Age & Sex: 36 y.o. Female Date of : 1980 Referring Provider: Recording Technologist: Sleep Fellow: GUERO PATTERSON II, MD Sleep Specialist: ARSH WLOF MD Description of Study: Study was performed utilizing frontal, central & occipital EEG, EOG, submentalis EMG, and ECG, according to AASM established guidelines. Patients are monitored throughout four or five opportunities to sleep (???naps?? ) at two-hour intervals. For each nap, the patient is allowed 20 minutes to fall asleep. Once asleep, the patient is awakened after 15 minutes. Between naps, the patient is kept as alert as possible. A sleep latency of 20 minutes indicates that no sleep occurred. Study Details Study Time: Summary (All Naps): Start (First Lights-Out): 09:55:58 Mean Sleep Latency: 8.1 End (Final Lights-On): 16:13:57 Mean REM Latency: - Total Number of Naps: 5 Number of REM Episodes 0 Number of Naps with REM Episodes: 0 Nap # Time of Nap Sleep Latency (minutes) REM Latency (minutes) %Asleep %Awake 1 07:50:58 20.0 - 0.0 100.0 2 09:51:58 4.0 - 65.9 34.1 3 11:49:58 9.0 - 60.8 39.2 4 14:00:58 3.0 - 87.0 13.0 5 15:50:58 4.5 - 69.6 30.4 MSLT Hypnogram * Arsh Wolf MD - 09/06/2017 7:00 AM EST I reviewed the MSLT in its entirety. I have reviewed Tana's note and agree with the findings and recommendations. ARSH WOLF MD documented in this encounter Plan of Treatment Not on file documented as of this encounter Visit Diagnoses Diagnosis Hypersomnia Hypersomnia, unspecified documented in this encounter Care Teams Wood Fence Installer Relationship Specialty Start Date End Date Padmini Garcia MD [address] [address] PCP - General Psychiatry 06/30/17 documented as of this encounter
--- OUTSIDE RECORDS SUMMARY | 2024-10-02 18:52 | XMS_ITS | Encounter Summary ---
Author Organization [facility] Address [facility] [place] [address] Care Team Providers Care Minister Of Religion Name Role Phone Padmini Garcia MD Primary Care Provider [phone] Encounter Details Date Type Department Care Team (Late st Contact Info) Description 09/06/2017 Orders Only Sleep Center at [facility] [address] [place] [address] Jeanne Spears MD [facility] [place] [address] Hypersomnia (Primary Dx) Social History Tobacco Use Types Packs/Day Years Used Date Smoking Tobacco: Never Assessed Sex and Gender Information Value Date Recorded Sex Assigned at Not on file Gender Identity Not on file Sexual Orientation Not on file documented as of this encounter Plan of Treatment Not on file documented as of this encounter Results * U Methylphenidate+Metabolites (09/06/2017 12:45 AM EST) U Methylphenidate (FEBRUARY) NEGATIVE Not Established ng/mL [facility] Comment: Test Performed by: [employer]. [address] [place] [id number] U Ritalinic Acid (FEBRUARY) NEGATIVE Not Established ng/mL [facility] Comment: This test was developed and its performance characteristics determined by [facility]. ??It has not been cleared or approved by the Food and Drug Administration. Test Performed by: [employer]. [address] [place] [id number] Urine specimen (specimen) 09/06/2017 12:45 AM EST 09/07/2017 8:34 AM EST Narrative Resulting Agency Comment Spec In Lab Su Garcia MD LAB SEND OUT ORDERAB LES Performing Organization Address City/[facility]/ZIP Co de Phone Number [facility] [place] [address] * DARNELL Request (09/06/2017 12:45 AM EST) DARNELL Conf Requested Yes [facility] DARNELL Requested See Comment [facility] Comment:Refer to the DARNELL Scr een w/ Confirmation order for results. Urine specimen (specimen) 09/06/2017 12:45 AM EST 09/06/2017 4:29 PM EST Narrative Resulting Agency Comment Spec In Lab Su Garcia MD URINE ORDERABLES Performing Organization Address [facility] Co de Phone Number [facility] [place] [address] documented in this encounter Visit Diagnoses Diagnosis Hypersomnia- Primary Hypersomnia, unspecified documented in this encounter Care Teams Minister Of Religion Relationship Specialty Start Date End Date Padmini Garcia MD [address] [address] PCP - General Psychiatry 06/30/17 documented as of this encounter
--- OUTSIDE RECORDS SUMMARY | 2024-10-02 18:52 | XMS_ITS | Clinical Summary ---
Author Organization [facility] Address [facility] [place] [address] Care Team Providers Care Machine Wedger Name Role Phone Padmini Garcia MD Primary Care Provider [phone] Allergies Active Allergy Reactions Criticality Noted Date Comments Sulfamethoxazole-Trimetho prim Other (See Comments) Medium 06/30/2017 Tounge swells Codeine Nausea And Vomiting Medium 06/30/2017 Medications Medication Sig Dispensed Refills Start Date End Date Status sertraline (ZOLOFT) 100 mg Tablet 100 mg 2 times daily. 03/29/2017 Active dextroamphetamine-a mphetamine (ADDERALL) 5 mg Tablet 5 mg 2 times daily. 06/10/2017 Activ e pravastatin (PRAVACHOL) 40 mg Tablet 40 mg daily. 05/13/2017 Active lamoTRIgine (LAMICTAL) 200 mg Tablet 200 mg 2 times daily. 06/12/2017 Act camilla diphenhydrAMINE (BENADRYL) 25 mg CapsuleIndications: insomnia Take 25 mg by mouth nightly as needed for Sleep. Indications: Insomnia Active multivitamin CapsuleIndications: centrum silver Take 1 capsule by mouth daily. Indications: centrum silver Active Nepali Ginseng Root 518 mg Capsule Take 1 capsule by mouth. Active cyanocobalamin 1,000 mcg Tablet Take 1,000 mcg by mouth daily. Active buPROPion SR (Wellbutrin SR) 100 mg tablet sustained-release 12 hr TAKE 1 TABLET BY MOUTH ONCE DAILY WITH THE 150 MG XL FORMULATION TO ACHIEVE A DAILY DOSE OF 250 MG. 11/21/2020 Active buPROPion XL (Wellbutrin XL) 150 mg Tablet Extended Release 24 hr TAKE 1 TABLET BY MOUTH ONCE DAILY ALONG WITH THE 100 MG SR FORMULATION FOR A TOTAL DAILY DOSE OF 250 MG DAILY FOR CONCENTRATION AND MOOD. 11/21/2020 Active cholecalciferol, Vitamin D3, 50 mcg (2,000 unit) Tablet Take 10,000 Units by mouth daily. Active melatonin 5 mg Tablet Take 3 mg by mouth as needed. gummies Active BIOTIN ORAL Take by mouth. Active NONFORMULARY REQUEST Joint supplement Active ascorbic acid, Vitamin C, (Vitamin C) 500 mg tablet Take 500 mg by mouth daily. Active [place] Fruit 450 mg capsule Take by mouth. Active NONFORMULARY REQUEST 3 times daily. Fiber supplement Active Brindall Mckeon-Chromium (Garcinia Cambogia) 200-500 mcg-mg Tablet Take by mouth. Active ferrous gluconate (Ferate) 324 mg (37.5 mg iron) tablet Take 324 mg by mouth daily. Active Active Problems Problem Noted Date Diagnosed Date UTI (urinary tract infection) 03/20/2022 Overview (03/21/2022): Salena HORTON called for a consult. There are no available beds at . Pt is at [facility] with malodorous cloudy urine. She was treated last week at [place] for a UTI with macrobid and then had resumption of her malodorous urine A day or 2 after finishing the macrobid. The ER at [facility] have been unable to obtain the urine culture as it was done at [facility] which is now closed. Today in the ER she is afebrile, she has some Rt flank pain. Her BP was 88/68 and then it went up to 96/76. Her WBC is 33. Urine shows leuk, many bacteria and is nit. Neg Imp: pt with a probable UTI No sign of obstruction on a CT Very constipated Plan: advised to continue antibiotics and follow up on prior culture to ensure she was treated appropriately Treat constipation Advised that the Rt renal stone is not likely to be contributing to her current infection. She had a CT scan that I reviewed. This shows a small stone, 3 mm in the Rt kidney. There is some stranding around the Rt kidney. There is no hydroureteronephrosis. She is very constipated! ALISON (obstructive sleep apnea) 09/24/2017 Social History Tobacco Use Types Packs/Day Years Used Date Smoking Tobacco: Never Assessed Sex and Gender Information Value Date Recorded Sex Assigned at Not on file Gender Identity Not on file Sexual Orientation Not on file Last Filed Vital Signs Vital Sign Reading Time Taken Comments Blood Pressure 117/64 04/13/2022 1:50 PM EDT bianka en last week Pulse 90 11/26/2018 8:00 PM EST Temperature - - Respiratory Rate 14 11/26/2018 8:00 PM EST Oxygen Saturation 98% 10/05/2018 11:24 AM EST Inhaled Oxygen Concentration - - Weight 49.9 kg (110 lb) 04/16/2023 11:22 AM EDT Height 154.9 cm (5' 1) 04/16/2023 11:22 AM EDT Body Mass Index 20.78 04/16/2023 11:22 AM EDT Plan of Treatment Health Maintenance Due Date Last Done Comments HIV screen 2000 Hepatitis C Screening 2000 Hepatitis B vaccine (0-59 yrs) (1) 2001 Tetanus/Diphtheria/Pertussis Vaccines (1 - Tdap) 10/15 HPV test 2012 PAP Smear 2012 Breast Cancer Share Decision Needed 2022 Breast Cancer screening 2022 Covid-19 Vaccine (1 - 2023- season) 2024 Influenza (Flu) vaccine (1 o f 1 - Influenza standard series) 06/18/2024 Care Teams Machine Wedger Relationship Specialty Start Date End Date Padmini Garcia MD [facility] [address] [place] [address] PCP - General Psychiatry 06/30/17
--- OUTSIDE RECORDS SUMMARY | 2024-10-02 18:52 | XMS_ITS | Encounter Summary ---
Author Organization [facility] Address [facility] [place] [address] Care Team Providers Care Marketing Recruiter Name Role Phone Padmini Garcia MD Primary Care Provider [phone] Encounter Details Date Type Department Care Team (Late st Contact Info) Description 09/22/2017 Notes Only Sleep Center at [facility] [address] [place] [address] Arsh Wolf MD [facility] [place] [address] Social History Tobacco Use Types Packs/Day Years Used Date Smoking Tobacco: Never Assessed Sex and Gender Information Value Date Recorded Sex Assigned at Not on file Gender Identity Not on file Sexual Orientation Not on file documented as of this encounter Progress Notes * Arsh Wolf MD - 09/22/2017 2:38 PM EST Please see Dr Fajardo's individual notes for the actigraphy, PSG and MSLT. Actigraphy suggestive of long sleep times (on average > 10 hrs per night) although her schedule rather erratic. The actigraph would be consistent with her report of long sleep times and could be consistent with idiopathic hypersomnia. PSG, however, demonstrates reduced total sleep time. It was difficult to score sleep onset in this patient in part because of the presence of eye movements presumably related to her SSRI. Stage 2 sleep, however, was easily identifed. Sleep onset latency on the PSG was around one hour which is approximately what the patient reported as well. The reduced total sleep time and prolonged latency on the PSG would suggest against hypersomnia. The PSG was also suggestive of mild sleep apnea. MSLT was equivocal with a man latency to sleep of just over 8 minutes which is in a youssef range. Thelimited sleep the night before the PSG would if anything artificially reduce the sleep latency on the MSLT. 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 Further complicating factors was the difficult in identifying sleep onset. One could start with having the patient work on regularizing her sleep schedule and treating her mild ALISON. She can also be queried as to wether she is having any insomnia at home and wether her long times of quiescence on the Actigraph actually represent sleep. Arsh Wolf MD documented in this encounter Plan of Treatment Not on file documented as of this encounter Visit Diagnoses Not on filedocumented in this encounter Care Teams Marketing Recruiter Relationship Specialty Start Date End Date Padmini Garcia MD [address] [address] PCP - General Psychiatry 06/30/17 documented as of this encounter
--- OUTSIDE RECORDS SUMMARY | 2024-10-02 18:52 | XMS_ITS | Encounter Summary ---
Author Organization [facility] [place] [address] Care Team Providers Care Lighthouse Keeper Name Role Phone Padmini Garcia MD Primary Care Provider [phone] Encounter Details Date Type Department Care Team (Late st Contact Info) Description 02/24/2022 Telephone Sleep Center at [facility] [address] [place] [address] Ekta Singer Social History Tobacco Use Types Packs/Day Years Used Date Smoking Tobacco: Never Assessed Sex and Gender Information Value Date Recorded Sex Assigned at Not on file Gender Identity Not on file Sexual Orientation Not on file documented as of this encounter Miscellaneous Notes * Telephone Encounter - Ekta Singer - 02/24/2022 12:11 PM EDT Return in about 1 year (around 03/12/2022). 02/24 LVM FOR PT TO SCHEDULE THIS APPT. documented in this encounter Plan of Treatment Not on file documented as of this encounter Visit Diagnoses Not on filedocumented in this encounter Care Teams Lighthouse Keeper Relationship Specialty Start Date End Date Padmini Garcia MD [facility] [address] [place] [address] PCP - General Psychiatry 06/30/17 documented as of this encounter
--- OUTSIDE RECORDS SUMMARY | 2024-10-02 18:52 | XMS_ITS | Encounter Summary ---
Author Organization [facility] Address [address] [place] [address] Care Team Providers Care Shift Supervisor Rn Name Role Phone Unavailable Primary Care Provider Unavailabl e Encounter Details Date Type Department Care Team (Late st Contact Info) Description 01/10/2015 Historical Results Only [facility] - [address] [place] [address] [place], [place] [address] Adelaide Soliman PA [address] [place], [place] [id number] Social History Tobacco Use Types Packs/Day Years [...] Date/Time Associated Diagnosis Comments PAP TEST Routine 01/10/2015 documented in this encounter Results * PAP TEST (01/10/2015) 01/10/2015 01/11/2015 9:4 1 EDT Yash [facility] - 01/17/2015 10:52 EDT ----- ------- Name: PAULA JAMES ?: 84 ?Age/Sex: 38/F ?Unit#: [id number] ? Loc: LAB.OPX ? Status: REG REF ?? Reg Date: 01/10/15 ? Pt.Phone Number: ? ----- ------- Specimen: [id number] ?STATUS: SOUT ?Spec Date:01/10/15 ? Physician Copies: ?Adelaide Soliman Tissues: ? Cervical/Endo Pap ? CPT: 35603 ?? Units: ??1 ----- ------- ? CYTOLOGY DIAGNOSIS SPECIMEN ADEQUACY: ?Satisfactory for evaluation. Transformation zone component present. GENERAL CATEGORIZATION: ?Negative for Intraepithelial Lesion or Malignancy DESCRIPTIVE DIAGNOSIS: ? Negative for Intraepithelial Lesion or Malignancy. ----- ------- ?HPV DNA RESULTS ?? 01/10/15 0942 HPV DNA RESULT ??NEG ? Negative for HPV types 16, 18, 31, 33, 35, 39, 45, 51, 52, ? 56, 58, 59, 66, 68. ? Method: Cervista HPV HR (High Risk) DNA test. ----- ------- ORDER QUERIES: LMP: 12/20/14- ? Post ?PREVIOUS ATYPICAL: ?? BCP/HRT? ?? Rad Rx? ?? IUD?PAP PLUS HPV? Y ??REFLEX TO HR-HPV IF ASCUS ?? REFLEX TO HPV 16/18 IF HPV POS/PAP NEG Y HPV REGARDLESS?RFLX HPV IF LSIL ?? Signed Tiny Cottrell CT(ASCP) 01/17/15 By the signature above, the attending physician certifies that he/she has personally conducted a gross and/or microscopic examination of the described specimens and rendered or confirmed the above diagnosis. Test Performed by [facility], [address] [place] [address] Messenger Office: Lisandra Muir MD PHD ----- ------- us Adelaide HORTON PATHOLOGY ORDERABLES Final Re sult [facility] documented in this encounter Visit Diagnoses Not on filedocumented in this encounter
--- OUTSIDE RECORDS SUMMARY | 2024-10-02 18:52 | XMS_ITS | Encounter Summary ---
Author Organization [facility] [address] Care Team Providers Care Chucking Machine Set Up Operator Name Role Phone Padmini Garcia MD Primary Care Provider Reason for Referral * Consultation (Routine) - Specialty Diagnoses / Procedures Referred By Caroline allen Referred To Contact Sleep Center Diagnoses Hypersomnia Procedures PRG ACTIGRAPHY TESTING RECORDING ANALYSIS I&R PRG MASTER OCEAN SLEEP LATENCY/MAINT OF WAKEFULNESS TSTG PRG POLYSOM 6+ YRS SLEEP W 4+ ADDL ROBERTA Arsh Lutz MD [facility] [place] [address] [facility] [address] [place] [address] Referral ID Status Reason Start Date Expiration Date V isits Requested Visits Authorized [id number] Consult, Test & Treat 06/30/2017 06/30/2018 3 3 Reason for Visit * Consultation (Routine) - Closed Specialty Diagnoses / Procedures Referred By Caroline allen Referred To Contact Sleep Center Diagnoses EXCESSIVE SLEEPINESS Procedures Padmini Howard MD [facility] [address] [place] [address] [facility] [address] [place] [address] Referral ID Status Reason Start Date Expiration Date V isits Requested Visits Authorized [id number] Closed Consult Only 03/22/2017 03/22/2018 1 1 Encounter Details Date Type Department Care Team (Late st Contact Info) Description 06/30/2017 1:00 PM EDT Office Visit Sleep Center at [facility] [address] [place] [address] Arsh Wolf MD [facility] [place] [address] Hypersomnia Social History Tobacco Use Types Packs/Day Years Used Date Smoking Tobacco: Never Assessed Sex and Gender Information Value Date Recorded Sex Assigned at Not on file Gender Identity Not on file Sexual Orientation Not on file documented as of this encounter Last Filed Vital Signs Vital Sign Reading Time Taken Comments Blood Pressure 110/69 06/30/2017 12:59 PM EDT Pulse 79 06/30/2017 12:59 PM EDT Temperature - - Respiratory Rate - - Oxygen Saturation 99% 06/30/2017 12:59 PM EDT Inhaled Oxygen Concentration - - Weight 47.2 kg (104 lb) 06/30/2017 1:39 PM EDT Height 154.9 cm (5' 1) 06/30/2017 1:39 PM EDT Body Mass Index 19.65 06/30/2017 1:39 PM EDT documented in this encounter Progress Notes * Arsh Wolf MD - 06/30/2017 1:00 PM EDT Sleep Medicine Consultation Note HPI: Ms. Paula Osullivan is a 36 y.o. female seen at the request of Padmini Garcia MD her psychiatrist for advice regarding a hypersomnia complaint. The 03/19/[address] Garcia indicates the patient feels the need to sleep a lot although her [place] is 4. The patient does note improvement in her sleepiness with Adderal which she takes week days. It appears this has been prescribed for attentional issues/problems. The patient reported feeling sleep deprived since middle school. Medication list at the time of the Dr Garcia visit 03/19/17 included sertraline 100 mg bid, lamictal 200 mg bid, melatonin 3 mg and Adderall 2.5 mg bid among other medications. Today, she reports having fatigue/sleepiness all of her life except for a period of time she was olga medication that caused insomnia. Redding of 2 today. The medication that caused insomnia was Geodon - she was being tried for psychosis but she reports the symptoms turned out to be related to her TLE. If left to her own devices she would sleep 16 hrs and still want to nap. This problem is getting worse with time - she used to sleep 14 hrs per day not 16 on days off. This worsening may have coincided with her change from working days to nights about 3 mo ago. The Adderal helps her feel less spacey but does not help her feel more rested. If she has 3 days off in a row she still sleeps mostof that time. She will be returning to days next week for an extended period of time. The patient is aware of some sleep fragmentation with 2-3 awakenings during the night. She is usually able to return to sleep. She has had fragmented sleep for at least the last year. She thinks whenshe was younger she slept through the night. For the last month she has worn a Fit Bit - it is telling her she is averaging 50% less deep sleep than the average person. She might have some trouble getting to sleep if the temperature is too high. She might have troublegetting to sleep after taking a MVI or Vit D - she will then feel less rested the next day if she had trouble getting to sleep the night before. She would not have said getting to sleep was a problemuntil the last month or so. She has had more of a problem getting to sleep in the last month which she attributes to increased caffeine ingestion. Only has trouble shutting her mind off on occasion. She takes melatonin and or benadryl prn - she takes a sleep aide if she feels she has to get a certain amount of sleep. She may talk in her sleep and may or may not be aware of it. Once she kicked in her sleep with someverbalizations per her bed partner (shemar) but this was an isolated incident.The patient reports no tonic clonic seizures. Her TLE manifested as rage and distorted perceptions which all resolved years ago with Lamictal. She is treated by Dr Harvey at the [facility] for the epilepsy. No reported seizures at nights. No tongue biting or enuesis at night. She does have some night sweats at night in clusters -months of no events then nightly for two weeks. She is currently being treated for her mood and attentional problems by Dr Garcia a psychiatrist [facility]. Sleep Pattern: Location: bedroom Bed/Recliner/Wedge: flat bed # of pillows under head: none Position: side or prone For the last three months she has been working third shift. Prior to that she had been on day shift. She will be back on days next week. She works 3-5 nights per week currently but mostly the 5 nights. She works from 9 pm to 8-9 am. If she has worked at night she gets into bed 9:30-11 am. She reads in bed - she uses a Nader with a blue light alvaro. She reads for about 30 min then puts the nader down. Latency in the last month is brief usually. In the last month she had trouble getting to sleep less than once a week. She wakes up 2-3 x per night for unclear reasons. She changes position and goes back to sleep. She wakes for the day around 7:30 pm with an alarm. She hits the snooze 2 x then gets up. She has a hard time getting up. On workdays she is sleeping 8-9 hrs. On days off she goes to sleep at 11 am. She wakes up 16 hrs later the next day in the mid-afternoon. She cannot recall how many awakenings. She naps on her first day off as well. The next day off arvindwill go to bed 1-2 hrs after she wakes from her 4+ hr nap. She will try to sleep another 16 hrs. Questionnaires: Patient-reported scores: No flowsheet data found. Redding of 2 today Daytime Symptoms: Upon Awakening: she feels unrested Daytime fatigue/sleepiness: yes, through her entire wake period although it improves with caffeine and adderall. Keeping moving helps her feel better. Naps: just days off Involuntary Dozing: no - can read a book without dozing off, no dozing off at work. 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 Cognitive Symptoms: yes - some possible problems with focus. May lose her train her thought. Adderal helps prevent this loss of her train of thought. Driving: Difficulty with sleepiness and driving: No problems staying awake driving. Uses Adderall before driving to avoid the spacing out. The adderall keeps her from spacing out. Close calls related to sleepiness: no but reports close call without adderall due to being inattentive. Accidents related to sleepiness: no Sleep Review of Symptoms: ALISON: Snoring: no, she has a bed partner sometimes Observed Apneas: no Mouth Breathing at night: maybe Dry Mouth in morning: no Nocturnal Gasping: no Nasal Obstruction: no Weight: 103-106 lbs, steady Parasomnias: Sleep Walking: no Dream Enactment: see hpi for isolated incident Bruxism: deferred Motor: RLS: no PLMS: no Narcolepsy: Hallucinations: prior to lamictal she would note the sensation of moving quickly and hitting something, they occurred at sleep onset. She also could smell things that weren't there during day - resolved with lamictal. Altered sensations during day also resolved with lamictal. Started lamictal in 2004. Paralysis: twice in her life Cataplexy: no Past/Childhood Sleep History: needed a lot of sleep since middle school Family History: Family history of sleep disorders: no Patient Active Problem List Diagnosis Code ??? Hypersomnia G47.10 Past Medical History: Diagnosis Date ??? Attention or concentration deficit ??? Depression with anxiety ??? Fe deficiency anemia ??? TLE (temporal lobe epilepsy) Past Surgical History: Procedure Laterality Date ??? APPENDECTOMY ??? MOUTH SURGERY bone graft and dental implant Current Outpatient Prescriptions Medication Sig Dispense Refill ??? sertraline (ZOLOFT) 100 mg Tablet 100 mg 2 times daily. ??? dextroamphetamine-amphetamine (ADDERALL) 5 mg Tablet 2.5 mg 2 times daily. ??? pravastatin (PRAVACHOL) [...] No current facility-administered medications for this visit. 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 Maybe a little less on days off. Adderal 2.5 mg twice a day on workdays (upon awakenign and at lunch) but not on days off Family: She travels for work. She often lives in hotels. She may be at her mothers house ([place]) or [facility] or hotels on weekends ROS: CON: weight change: see HPI ENT: nasal obstruction: see HPI NEURO: sleep related headaches: yes - she may wake with a headache if she had trouble getting to sleep or staying asleep the night before. Notes this headache 1-2 x per week. CV: chest pain: no Palpitations: no LE edema: no PUL: SOB: no PSY: Depression: no - under good control with medication Anxiety: no- patient denies having anxiety GI: GERD: no : Nocturia: no MSK: Pain that interferes with sleep: no ALL: Environmental Allergies: no MSE: Alert and appropriate: yes Oriented to person, place and time: 1/ person, 5/5 place, 4/4 time Mood: good Affect: full PE: General: female in nad Body mass index is 19.65 kg/(m^2). Vitals: 06/30/17 1259 06/30/17 1339 BP: 110/69 BP Location ([facility]): Right arm Patient Position: Sitting BP Cuff Sizes: Adult (25-34 cm) Pulse: 79 SpO2: 99% Weight: 47.2 kg (104 lb) Height: 154.9 cm (5' 1) Eyes: Conjunctival injection: none EOM: deferred Eyelid hooding: none ENT: MP: 3/4 Facial deformity: none Hard palate: unremarkable Soft palate: low Gums and teeth: good Tongue: unremarkable Nares: patent Pul: Respirations: even and not labored Auscultation: deferred Waking saturation at rest: 99% at rest on room air Neck/Lymphatics: Lymphadenopathy: no Masses: no Circumference: 12.25 in Cardiac: LE edema over shins: trace edema noted overs shins bilaterally Neuro: CN: 2-12 intact with PERRL, EOM intact; Motor 5/5 UE and LE bilaterally proximally and distally, no pronator drift bilaterally. Sensation: crude touch intact in hands and feet; Cerebellar: FtoN and HtoS intact bilaterally; Reflexes: 2 plus biceps, triceps, ankle jerks bilaterally but 3 plus at knees bilaterally. Hyper-reflexia is noted on her problem list from the [facility]. Toes probably downgoing bilaterally. Musculoskeletal: Gait and stance: normal gait and stance Studies: She reports she had a MRI and EEG done in the past in [place] as part of her TLE evaluation - bothwere normal by her report. The EEG was done while on Lamictal she reports. Assessment: Ms. Paula Osullivan is a 36 y.o. female who is seen to evaluate hypersomnia. She reports since childhood that she will sleep 14 plus hours a night if left to her own devices. Currently during the work week uses caffeine and Adderall 2.5 mg bid to allow herself to function during the work week. These long sleep times are suggestive of idiopathic hypersomnia. Her occasional sleep onset insomnia issues do suggest against a primary disorder of hypersomnolence but they are not prominent and she attributes them to the excess caffeine she uses to stay alert during her day. Narcolepsy would seem unlikely with the long sleep times and no ancillary symptoms of narcolepsy (she had some possible sleep related hallucinations which resolved with treatment of her TLE with lamictal). ALISON would seem unlikely without any snoring and her normal BMI. Shift work may be worsening her problem but her long sleep times started well before the shift work. Fortunately she will be resuming the day shift indefinitely on Wednesday. We decided to evaluate her complaints with sleep logs for two week (with actigraphy if available), PSG and MSLT. She knows she will need to be on a day sleep schedule for at least two weeks prior to testing. She knows to abstain from adderal for the two weeks prior to the PSG as well. She will be pa rticularly careful in regards to driving during that time. She will continue on the Zoloft as she does not feel she could come off it for two weeks for testing. Lamictal is not known to change MSLT results so that will not be changed. If there are any changes in her medications between now and testing she will let me know. The hyper-reflexia is of unclear significance. I suggested follow-up with her PCP and considerationof neurology evaluation. History provided by: patient Records reviewed:eDH and scanned note from 03/19/[address] Ricardo at [facility] Time spent face to face: 80 min Time spent devoted to counseling and discussion: 45 min Recommendations: 1) Polysomnography followed by MSLT and preceded by logs (and actigraphy if available) 2) Driving safety was reviewed with patient. If the patient feels too sleepy to drive he/she knows not to drive. If he/she becomes sleepy while driving he/she will machine puller and nap. 3) No Adderal for the two weeks prior to testing 4) Follow-up with PCP with consideration of a neurology evaluation given hyper-reflexia. The patient indicates understanding of these issues and agrees with the plan. documented in this encounter Plan of Treatment Scheduled Referrals Name Type Priority Associated Diagnoses Orde r Schedule Referral to Sleep Disorders Center Outpatient Referral Routine Hypersomnia Ordered: 06/30/2017 documented as of this encounter Visit Diagnoses Diagnosis Hypersomnia Hypersomnia, unspecified documented in this encounter Care Teams Chucking Machine Set Up Operator Relationship Specialty Start Date End Date Padmini Garcia MD [facility] [address] [place] [address] PCP - General Psychiatry 06/30/17 documented as of this encounter
--- OUTSIDE RECORDS SUMMARY | 2024-10-02 18:52 | XMS_ITS | Encounter Summary ---
Author Organization [facility] Address [address] [facility] [place] [address] Care Team Providers Care Pear Picker Name Role Phone Padmini Garcia MD Primary Care Provider [phone] Reason for Visit * Reason Comments Obstructive Sleep Apnea Encounter Details Date Type Department Care Team (Late st Contact Info) Description 12/24/2017 9:00 AM EST Office Visit [facility] at [facility] [address] [place] [address] Adelaide Finnegan, [facility] ALISON on CPAP Social History Tobacco Use Types Packs/Day Years Used Date Smoking Tobacco: Never Assessed Sex and Gender Information Value Date Recorded Sex Assigned at Not on file Gender Identity Not on file Sexual Orientation Not on file documented as of this encounter Progress Notes * Adelaide Finnegan CRTT - 12/24/2017 9:00 AM EST Sleep Medicine Clinical Health Specialist Brief Follow-Up Note HPI: Ms. Paula Osullivan is a 37 y.o. female seen for follow-up of obstructive sleep apnea. Patientpresents today for follow-up in PAP clinic: ?? Sleep Study: 09/05/18 No snoring was noted during the study. AHI 8. CMS AHI of 0 which includes only apneas and hypopneaswith 4% desaturations noted. OAHI 8. RDI 16. BRET 0. Mean oxygen saturation asleep was 97%. Minimum oxygen saturation asleep of 95%. Zero minutes spent with SpO2 less than or equal to 88%. Weight: 105# Treatment: CPAP Pressure: 5-15 cm Interface: nasal pillows-air fit P 10 Fit: some occasional leak Chin Strap: no HCC: KMP Snoring: no and never did Dry Mouth/Throat: no Mouth Breathing: no Patient perceived outcome: I no longer wake feeling I want to and no longer struggle to get out of bed. No more headaches. No longer feel like a zombie and no napping. [place]: 3 Nocturnal Sleep Quality: has improved Involuntary Dozing: no Nap: no Driving: Sleepiness or drowsiness: no ROS: ?? ENT: Nasal Obstruction:?? none Constitutional:?? Weight is steady Compliance Card Data: Date Range: 11/09-12/22/17 Settin-15 cm median 5.2/95% 7.3 cm Residual AHI: 0.4 Vibratory Snore Index: n/a % Night in Large Leak: Median 1.6/95% 9 Average usage all days-Hours: 7 hr 51 min # of Days of usage: 43/44 % Days used > 4 hours 98% Total % Days used 98% Physical Exam: Respirations: Even and not labored at rest DERM: Skin irritation: wake with some chaffing around the nostrils There were no vitals filed for this visit. Time spent face to face: 30 Min. Showed late Assessment: Ms. Paula Osullivan is a 37 y.o. female seen for follow-up of obstructive sleep apnea. Patient presents today for follow-up in PAP clinic: Ms Osullivan is using CPAP with excellent adherence. The AHI and leak appear to be well controlled with the current auto pressures. Ms Osullivan reports significantoverall benefit from CPAP with her nocturnal and daytime symptoms. She is having problems with her nasal pillows shifting around and would like to try a different style nasal pillow. A script was written to her [facility] for a refit. RTC one one year. She knows to call sooner if any problems. Recomendations: 1) CPAP 5-15 cm with ramp and Heated Humidity 2) Follow-up: RTC one year with [place] [facility] 3) Driving safety discussed, recommend patient not drive if drowsy, if drowsy while driving to ticket puller and take a nap. 4) Script to [facility] for a mask refit The patient indicates understanding of these issues and agrees with the plan. documented in this encounter Plan of Treatment Not on file documented as of this encounter Visit Diagnoses Diagnosis ALISON on CPAP Obstructive sleep apnea (adult) (pediatric) documented in this encounter Care Teams Pear Picker Relationship Specialty Start Date End Date Padmini Garcia MD [address] [address] PCP - General Psychiatry 06/30/17 documented as of this encounter
--- OUTSIDE RECORDS SUMMARY | 2024-10-02 18:52 | XMS_ITS | Encounter Summary ---
Author Organization [facility] Address [address] [place] [address] Care Team Providers Care Financial Management Consultant Name Role Phone Unavailable Primary Care Provider Unavailabl e Encounter Details Date Type Department Care Team (Late st Contact Info) Description 03/07/[address] [facility] - [address] [place] [address] [place], [place] [id number] Preet Hale MD [address] [place] [phone] Social History Tobacco Use Types Packs/Day [...] Procedure Name Priority Date/Time Associated Diagnosis Comments BASIC METABOLIC PANEL POCT [place] [facility] Routine 03/07/2020 12:21 EDT documented in this encounter Results * (ABNORMAL) BASIC METABOLIC PANEL POCT - [facility] (03/07/2020 12:21 EDT) BUN - [facility] 12 7.00 - 20.00 MG/DL 03/08/2020 12:23 EDT [facility] CALCIUM - [facility] 9.1 8.50 - 10.50 MG/DL 03/08/2020 12:23 EDT [facility] Chloride 99 98.00 - 107.00 MMOL/L 03/08/2020 12:23 EDT [facility] CO2 Total 31(H) 22.00 - 30.00 MMOL/L 03/08/2020 12:23 EDT [facility] CREATININE 0.7 0.70 - 1.50 MG/DL 03/08/2020 12:23 EDT [facility] Anion Gap 8 7 - 17 [facility] 82 70.00 - 100.00 MG/DL [facility] Potassium 4.4 3.50 - 5.10 MMOL/L 03/08/2020 12:23 EDT [facility] Sodium 138 137.00 - 145.00 MMOL/L 03/08/2020 12:23 [facility] 03/07/2020 12:2 1 EDT 03/07/2020 12:21 EDT Narrative [facility] - 03/08/2020 12:23 EDT CHRONIC RENAL IMPAIRMENT IS DEFINED GFR <60 MULTIPLY RESULT BY 1.210 FOR PATIENTS EGFR CALCULATED USING THE IDMS-TRACEABLE MDRD STUDY us Preet Hale MD POINT OF CARE TEST ORDERABLES Fi nal Result [facility] documented in this encounter Visit Diagnoses Not on filedocumented in this encounter
--- OUTSIDE RECORDS SUMMARY | 2024-10-02 18:52 | XMS_ITS | Encounter Summary ---
Author Organization [facility] Address [address] [place] [address] Care Team Providers Care Golf Cart Repairer Name Role Phone Unavailable Primary Care Provider Unavailabl e Encounter Details Date Type Department Care Team (Late st Contact Info) Description 10/22/2017 Historical Results Only [facility] - Main [place] [address] [place], [place] [address] Carrillo Everett MD [address] [place] [phone] Social History Tobacco Use Types Packs/Day [...] POCT DRUG SCREEN, URINE (10/22/2017 15:41 EST) [facility] NEG NEGATIVE 10/22/2017 15:42 EST [facility] 10/22/2017 15:4 1 EST 10/22/2017 15:41 EST us Carrillo Everett MD POINT OF CARE TEST ORDERABLES Fi nal Result [facility] documented in this encounter Visit Diagnoses Not on filedocumented in this encounter
--- OUTSIDE RECORDS SUMMARY | 2024-10-02 18:52 | XMS_ITS | Encounter Summary ---
Author Organization [facility] Address [address] [place] [address] Care Team Providers Care Accredited Farm Manager Name Role Phone Unavailable Primary Care Provider Unavailabl e Encounter Details Date Type Department Care Team (Late st Contact Info) Description 11/21/2009 Historical Results Only [facility] [place] Lab - Main [place] [address] [place], [place] [id number] Hussain Salinas MD [address] [place] [phone] Social History Tobacco Use Types Packs/Day Years [...] Date/Time Associated Diagnosis Comments PAP TEST Routine 11/21/2009 documented in this encounter Results * PAP TEST (11/21/2009) 11/21/2009 11/22/2009 10: 00 EST Narrative [facility] - 11/26/2009 10:37 EST ----- ------- Name: ERIKA,CERELIA ?: [birth year] ?Age/Sex: 39/F ?Unit#: [id number] ? Loc: LAB.OPX ? Status: REG REF ?? Reg Date: 11/21/09 ? Pt.Phone Number: ? ----- ------- Specimen: [id number] ? STATUS: SOUT ?Spec Date:11/21/09 ? Physician Copies: ?Hussain Salinas P Tissues: ? Cervical/Endo Pap ? CPT: 56593 ?? Units: ??1 ----- ------- ? CYTOLOGY DIAGNOSIS SPECIMEN ADEQUACY: ?Satisfactory for evaluation. Transformation zone component present. GENERAL CATEGORIZATION: ?Negative for Intraepithelial Lesion or Malignancy DESCRIPTIVE DIAGNOSIS: ? Negative for Intraepithelial Lesion or Malignancy. RECOMMENDATIONS/COMMENTS: ?None. ----- ------- ORDER QUERIES: LMP: ? - AUG 26 ? N Post ? N ??PREVIOUS ATYPICAL: N BCP/HRT? ?? Rad Rx? ?? IUD?PAP PLUS HPV?REFLEX TO HR-HPV IF ASCUS ?? REFLEX TO HPV 16/18 IF HPV POS/PAP NEG ?? HPV REGARDLESS?RFLX HPV IF LSIL ?? IF ASCUS DO HPV? Y Signed Tiny Cottrell CT(ASCP) 11/26/09 By the signature above, the attending physician certifies that he/she has personally conducted a gross and/or microscopic examination of the described specimens and rendered or confirmed the above diagnosis. Test Performed by [facility], [address] [place] [address] Cutter: Lisandra Muir MD PHD ----- ------- us Hussain Salinas MD PATHOLOGY ORDERABLES Final Resu lt Performing Organization Address City/State/[facility] Co de Phone Number [facility] documented in this encounter Visit Diagnoses Not on filedocumented in this encounter
--- OUTSIDE RECORDS SUMMARY | 2024-10-02 18:52 | XMS_ITS | Encounter Summary ---
Author Organization [facility] [place] [address] Care Team Providers Care Youth Pastor Name Role Phone Padmini Garcia MD Primary Care Provider [phone] Encounter Details Date Type Department Care Team (Late st Contact Info) Description 03/12/2021 11:00 AM EDT TH Visit (TeleHealth) Sleep Center at [facility] [address] [place] [address] Chio Berumen APRN [facility] [place] [address] ALISON on CPAP Social History Tobacco Use Types Packs/Day Years Used Date Smoking Tobacco: Never Assessed Sex and Gender Information Value Date Recorded Sex Assigned at Not on file Gender Identity Not on file Sexual Orientation Not on file documented as of this encounter Last Filed Vital Signs Vital Sign Reading Time Taken Comments Blood Pressure - - Pulse - - Temperature - - Respiratory Rate - - Oxygen Saturation - - Inhaled Oxygen Concentration - - Weight 45.4 kg (100 lb) 03/11/2021 4:26 PM EDT Height 154.9 cm (5' 1) 03/11/2021 4:26 PM EDT Body Mass Index 18.89 03/11/2021 4:26 PM EDT documented in this encounter Progress Notes * Chio Berumen APRN - 03/12/2021 11:00 AM EDT Sleep Medicine Telemedicine Follow-Up Note Patient is currently located at their car in [place], [place] (job site)-I am licensed to practice in [place]. Patient lives in [place]. Patient provided verbal consent prior to initiation of this encounter and expressed understanding that the telemedicine visit may be billed similar to a clinic visit CC: Ms. Paula Osullivan is a 40 y.o. female seen for telemedicine follow-up of [...] Pressure Intolerance: no Supplemental oxygen: no Interface/Mask: FFM, Dreamwear Difficulty tolerating mask interface: it's OK but was trying to use Nasal mask, was ? mouth breathing, overall prefers nasal mask to FFM Chin Strap: No but would be interested [facility]: [facility] Update: Has not been seen since Sep 2018. Needs an updated rx for PAP supplies. Continues to receive benefit from CPAP in terms of improved sleep quality and increased daytime energy and alertness. Takes adderall 5 mg BID for ADHD which works well for her. Insomnia is well managed with melatonin. Humidity: yes Dry Mouth/Throat: only with nasal mask,not with FFM Difficulty Breathing Through Nose/Mouth Breathing: no Symptoms: Patient-reported last 4 scores: [facility] 12/24/2017 10/05/2018 03/12/2021 [place] [facility] 3 (Low Risk) 7 (Low Risk) 7 (Low Risk) Insomnia Severity Index 9 (Subthreshold insomnia) 19 (Moderately severe insomnia) - Snoring: Not on CPAP Nocturnal sleep quality improved: yes Daytime symptoms improved (Daytime sleepiness/fatigue): yes Naps: no Involuntary Dozing: not generally Sleepiness or Drowsiness when driving: no Sleep Pattern: Bedtime: 10p, takes melatonin nightly, melatonin helps, asleep within 10 minutes. Rarely uses benadryl. Position: laterally and prone Rise time: alarm at 5:30, up around 6:3a Awakenings: none Card Data Download: Date Range: 12/11-03/10/21 Pressure: 11 cm Residual AHI: 1.1 95th% Leak: 23.4 Median Leak: 5.5 Average Usage (Days Used/Hours): 7 hrs 15 min Days of usage: 87/90 97% % Days used > 4 hours: 91% Current Outpatient Medications: ??? buPROPion SR (Wellbutrin SR) 100 mg [...] Disp: , Rfl: ??? cholecalciferol, Vitamin D3, (Vitamin D-3) 50 mcg (2,000 unit) Tablet, Take 2,000 Units by mouth daily., Disp: , Rfl: ??? melatonin 5 mg Tablet, Take 5 mg by mouth. gummies, Disp: , Rfl: ??? BIOTIN ORAL, Take by mouth., Disp: , Rfl: ??? NONFORMULARY REQUEST, Joint supplement, Disp: , Rfl: ??? multivitamin Capsule, Take 1 capsule by mouth daily. Indications: centrum silver, Disp: , Rfl: ??? Vietnamese Ginseng Root (GINSENG MALAY) 518 mg Capsule, Take 1 capsule by [...] 2 times daily., Disp: , Rfl: ??? diphenhydrAMINE (BENADRYL) 25 mg Capsule, Take 25 mg by mouth nightly as needed for Sleep. Indications: Insomnia, Disp: , Rfl: ??? FERROUS SULFATE, DRIED (IRON, DRIED, ORAL), Take by mouth., Disp: , Rfl: Active Ambulatory Problems Diagnosis Date Noted ??? Hypersomnia 06/30/2017 ??? ALISON (obstructive sleep apnea) 09/24/2017 Resolved Ambulatory Problems Diagnosis Date Noted ??? No Resolved Ambulatory Problems Past Medical History: Diagnosis Date ??? Attention or concentration deficit ??? Depression with anxiety ??? Fe deficiency anemia ??? Hyperreflexia ??? TLE (temporal lobe epilepsy) ROS: Constitutional: Weight change: patient not weighed today, based on most recent weight in [place] weight has been- Wt [place] from Last 3 Encounters: 03/11/21 45.4 kg (100 lb) 02/11/21 46.3 kg (102 lb) 11/26/18 53.1 kg (117 lb) ENT: Nasal Obstruction: no : Nocturia: no Time spent: total time of visit was 20 minutes, including face to face counseling, chart review anddocumentation Assessment: Ms. Paula Osullivan is a 40 y.o. female seen for obstructive sleep apnea. The data download reveals the AHI and leak appear to be well controlled. Patient is doing well with the current pressure and reports improvement, noting ongoing benefit with sleep quality, daytime energy and alertness. Her usage is excellent and she meets compliance. Recommendations: Keep CPAP at 11 cm Order for CPAP supplies to [facility], wants to try a nasal mask + chin strap. Call DME company for questions on machine, supply replacements, billing, and for confirming compliance met Continue to get PAP supplies at the recommended replacement intervals Driving safety discussed, recommend patient not drive [...] (pediatric) documented in this encounter Care Teams Youth Pastor Relationship Specialty Start Date End Date Padmini Garcia MD [facility] [address] [place] [address] PCP - General Psychiatry 06/30/17 documented as of this encounter
--- OUTSIDE RECORDS SUMMARY | 2024-10-02 18:52 | XMS_ITS | Encounter Summary ---
Author Organization [facility] Address [facility] [place] [address] Care Team Providers Care Electrical Controls Assembler Name Role Phone Padmini Garcia MD Primary Care Provider [phone] Encounter Details Date Type Department Care Team (Late st Contact Info) Description 06/30/2017 Orders Only [facility] [address] [place] [address] Arsh Wolf MD [facility] [address] [facility] [place] [address] Social History Tobacco Use Types Packs/Day Years Used Date Smoking Tobacco: Never Assessed Sex and Gender Information Value Date Recorded Sex Assigned at Not on file Gender Identity Not on file Sexual Orientation Not on file documented as of this encounter Progress Notes * Arsh Wolf MD - 06/30/2017 5:13 PM EDT Polysomnogram Order Form Room # Technologist Assignment: To be read by on PSG Patient Information Date of study: : 1980 Arrival Time: Name: Paula Osullivan 36 y.o. female Height: 5 ft 1 in Weight: 104 lbs Normal Sleep Hours: transitioning to night sleeping 07/05/17 Physical/Mobility Limitations: No Cognitive Limitations: No Requires Male Tech: No Requires Female Tech: No Requires 1:1 Care: No Requires Parent/Caregiver: No Using Home Oxygen: No At home sleeps in: Bed PSG Indications: Hypersomnia Other Medical Conditions: Temperol lobe epilepsy, Mood disorder, inattention PSG Orders Type of study: Diagnostic PSG with MSLT Additional data required: Temporal leads please Special instructions: none *Initiate CPAP/BPAP/oxygen per previously determined protocols unless otherwise specified. documented in this encounter Plan of Treatment Not on file documented as of this encounter Visit Diagnoses Not on filedocumented in this encounter Care Teams Electrical Controls Assembler Relationship Specialty Start Date End Date Padmini Garcia MD [address] [address] PCP - General Psychiatry 06/30/17 documented as of this encounter
--- OUTSIDE RECORDS SUMMARY | 2024-10-02 18:52 | XMS_ITS | Encounter Summary ---
Author Organization [facility] Address [facility] [place] [address] Care Team Providers Care Flight/Transport Nurse Name Role Phone Padmini Garcia MD Primary Care Provider [phone] Reason for Visit * Consultation (Routine) - Closed Specialty Diagnoses / Procedures Referred By Contac t Referred To Contact Sleep Center Diagnoses ALISON (obstructive sleep apnea) Procedures PRG POLYLSOM 6+ YRS SLEEP W CPAP W 4+ ADDL ROBERTA Arsh Lutz MD [facility] [place] [address] [facility] [address] [place] [address] Referral ID Status Reason Start Date Expiration Date V isits Requested Visits Authorized [id number] Closed Test Only 10/05/2018 10/05/2019 1 1 Encounter Details Date Type Department Care Team (Late Contact Info) Description 11/26/2018 7:30 PM EST Procedure visit Sleep Center at [facility] [address] [place] [id number] Arsh Wolf MD [facility] [place] [address] ALISON (obstructive sleep apnea) Social History Tobacco Use Types Packs/Day Years Used Date Smoking Tobacco: Never Assessed Sex and Gender Information Value Date Recorded Sex Assigned at Not on file Gender Identity Not on file Sexual Orientation Not on file documented as of this encounter Last Filed Vital Signs Vital Sign Reading Time Taken Comments Blood Pressure 111/61 11/26/2018 8:00 PM EST Pulse 90 11/26/2018 8:00 PM EST Temperature - - Respiratory Rate 14 11/26/2018 8:00 PM EST Oxygen Saturation - - Inhaled Oxygen Concentration - - Weight 53.1 kg (117 lb) 11/26/2018 8:00 PM EST Height 154.9 cm (5' 1) 11/26/2018 8:00 PM EST Body Mass Index 22.11 11/26/2018 8:00 PM EST documented in this encounter Progress Notes * Arsh Wolf MD - 11/26/2018 7:30 PM EST Images from the original note were not included. REPORT OF POSITIVE PRESSURE TITRATION IDENTIFYING INFORMATION Paula Osullivan : 1980 REFERRING PHYSICIAN:Padmini Garcia MD PRIMARY CARE PHYSICIAN: Padmini Garcia MD History Of Present Illness: Paula Osullivan is a 38 y.o. female who presents for a polysomnogram. Polysomnography: The patient's sleep was evaluated for one night at the [facility]. Sleep was monitored in accordance with recommended AASM guidelines. The recording also included oral/nasal airflow, chest and abdominal respiratory effort, nasal pressure, single channel EKG, intercostalEMG, bilateral tibialis EMG, and oxygen saturation (by pulse oximeter). Type of Positive Pressure Utilized: CPAP Comment: - Sleep/EEG: The patient had a 11 Hz posterior dominant rhythm when awake with eyes closed. NREM and REM sleep were noted. REM percentage was 39% which is elevated. - Respiratory: CPAP was titrated from a pressure of [...] cm appeared to be effective side NREM. Interfaces: Started with her own Dreamwear (nasal presumably) small/small. A chin strap was added for mouth breathing at epoch 139 (CPAP 4 cm) with transient improvement in the leak. Change was made to a Dreamware FFM at epoch 429 at the same time the pressure was increased to 7 cm. Leak was well controlled with the FFM. - EKG: Normal sinus rhythm with no significant ectopy. - EMG: PLMI was 6. - Study Conditions: Head of the bed: flat with two pillows Supplemental oxygen: room air - Subjective: The post sleep study questionnaire indicated the following: ...how did you sleep last night: slighlty better ..how well rested and alert do you feel right now: average Assessment: Ms. Paula Osullivan is a 38 y.o. female who presents for a CPAP titration. When the study is viewed as a whole respiratory events appear to be under good control. That being said arousalsmay have been seen at a higher than expected frequency at CPAP pressures of 6-8 cm NREM sleep supine. Arousals were less frequent side NREM at 11 and 12 cm. Unfortunately 8 cm was the highest pressures tested NREM sleep supine. Respiratory events were in remission in REM sleep even supine at 8 cm. REM rebound on this study with an elevated REM percentage although REM latency was not reduced. Mouth breathing appeared to be problematic with the patient's own nasal mask and was only temporarily corrected with a chin strap. The full face mask used appeared to fit well. The REM rebound might suggest that the higher CPAP pressures were beneficial. This is a non- specific finding and could be related to recent cessation of a REM suppressing medication or prior sleep deprivation. I was unable to reach her by phone so sent a [employer] message with the results and recommendations Recommendations: 1) CPAP set at a pressure of 11 cm with a Dreamware FFM size small/small via [facility] 2) Allow adequate time for sleep 3) KE or GG in 8 weeks after pressure change and mask change. 4) Contact my office with problems. [facility] REPORT of TITRATION Polysomnography Patient Name: Paula Osullivan Study Date: 11/26/2018 Age & Sex: 38 y.o. Female Height: 5'1 Date of : 1980 Weight: 116.8 lbs BMI: 22.1 Referring Provider: Recording Technologist: VALERIA GARCIA Scoring Technologist: RUTH CABA Sleep Fellow: Sleep Specialist: ARSH WOLF M.D. Scoring Technologist Comments: ECG: NSR Ectopy: Description of Study: Diagnostic polysomnography was performed utilizing frontal, central & occipital EEG, EOG, submentalis EMG, oronasal thermocouple, nasal pressure, ECG, thoracic and abdominalinductance plethysmography, right and left anterior tibialis EMG, snore sensor, and pulse oximetry according to AASM established guidelines. Study Details & Sleep Architecture Diagnostic Start Time (Lights Off): 21:36:55 Total Recording Time: 537.5 min Diagnostic End Time (Lights On): 06:34:26 Total Sleep Time (minutes): 433.0 Total Num. of Stage Shifts: 192 Total Sleep Time (hrs:min): 7:13.0 Total Num. of Awakenings: 31 Sleep Onset Latency: 15.5 min Total Num. of Trans. to N1: 77 Sleep Efficiency: 80.6% Total Num. of REM Periods: 2 Stage Results: Time (minutes) %TST Latency (minutes) WASO: 89.0 - - N1: 74.5 17.2 0.0 N2: 191.0 44.1 5.0 N3: 1.0 0.2 36.0 REM: 166.5 38.5 240.0 176.0 (minus wake) Arousal Counts: NREM REM Total Spontaneous: 135 (30.4/hr) 34 (12.3/hr) 169 (23.4/hr) Sum of All Arousals: 149 (33.5/hr) 37 (13.3/hr) 186 (25.8/hr) Spontaneous arousals include only EEG arousals not associated with a respiratory event or PLM. Body Position: Supine Non-Supine Non-REM: 84.0 min 182.5 min REM: 25.0 min 141.5 min Total Sleep: 109.0 min (25.2%) 324.0 min (74.8%) Respiratory Events Apneas Obstructive Mixed Central Total Apneas Total Count: 0 0 3 3 Mean Duration (sec): 0 0 11 11 Longest Duration (sec): 0 0 12.4 12 Index (REM/NREM): 0.0 / 0.0 0.0 / 0.0 1.1 / 0.0 1.1/ 0.0 Index (Sup./Non-Sup.): 0.0 / 0.0 0.0 / 0.0 0.0 / 0.6 0.0/ 0.6 Index (Total): 0.0 0.0 0.4 0.4 Hypopneas & RERAs Hypopnea* CMS Hypopnea AASM Central Hypopneas Hypopneas All RERA Total Count: 0 6 0 6 7 Mean Duration (sec): - 25.1 - 25 21.1 Longest Duration (sec): 0.0 44.5 0.0 45 28.9 Index (REM/NREM): 0.0/0.0 1.1/0.7 0.0/0.0 1.1/ 0.7 0.0 1.6 Index (Sup./Non-Sup.): 0.0 / 0.0 1.1/ 0.7 0/0 1.1/ 0.7 1.7 / 0.7 Index (Total): 0.0 0.8 0.0 0.8 1.0 *CMS-defined hypopneas include only hypopneas with a >=4% oxygen desaturation. Includes hypopneas with an arousal or with a 3%-4% desaturation. Periodic Breathing Total Sleep Time Time (minutes) 0.0 Time (%Sleep Time) 0.0 AHI: Includes all apneas & all hypopneas associated with an arousal or a >= 3% desaturation. Supine Non-Sup. REM NREM Total Count: 2 7 6 3 9 Index (events/hr): 1.1 1.3 2.2 0.7 AHI = 1.2 CMS AHI: Includes all apneas & only hypopneas associated with a >= 4% desaturation. Supine Non-Sup. REM NREM Total Count: 0 3 3 0 3 Index (events/hr): 0.0 0.6 1.1 0.0 CMS = 0.4 Obstructive AHI: Includes obstructive & mixed apneas as well as all hypopneas. Excludes centralapneas and RERAs. Supine Non-Sup. REM NREM Total Count: 2 4 3 3 6 Index (events/hr): 1.1 0.7 1.1 0.7 OAHI = 0.8 RDI: Includes all apneas, all hypopneas, all RERAs, and all ???Unsure??? events. Supine Non-Sup. REM NREM Total Count: 5 11 6.1 10.2 16 Index (events/hr): 2.8 2.0 2.2 2.3 RDI = 2.2 Oxygen Saturation Details (Overall) SpO2 Awake NREM REM All Sleep TOMMIE Report Sleep Mean: 96% 96% 96% 96% 3% TOMMIE 0.5 0.0 Minimum: - 94% 93% 93% 4% TOMMIE 0.0 0.0 SpO2 Awake (minutes) NREM (minutes) REM (minutes) All Sleep (minutes) <=90% 0.0 0.0 0.0 0.0 <=89% 0.0 0.0 0.0 0.0 <=88% 0.0 0.0 0.0 0.0 90-99% 101.9 258.0 166.2 424.2 80-89.9% 0.0 0.0 0.0 0.0 79-79.9% 0.0 0.0 0.0 0.0 60-69.9% 0.0 0.0 0.0 0.0 50-59.9% 0.0 0.0 0.0 0.0 <=50% 0.0 0.0 0.0 0.0 Cardiac Details Heart Rate (bpm) Total Study NREM REM All Sleep Minimum - 59 59 59 Maximum 98 98 98 98 Mean - 81 74 78 Limb Movement Details Periodic Limb Movements Total PLMs (and Index) PLMs w/ Arousals (and Index) Wake (after ???Lights Off???): 3 (1.7/hr) 1 (0.1/hr) NREM: 39 (8.8/hr) 7 (1.6/hr) REM: 1 (0.4/hr) 0 (0.0/hr) Total Sleep: 40 (5.5/hr) 7 (1.0/hr) Pressure Analysis Time (hh:mm:ss) IP/EP/O2 TST Supine Non-Sup. REM Non-REM REM Sup. 4/4/0 5/5/0 6/6/0 7/7/0 8/8/0 9/9/0 10/10/0 11/11/0 12/12/0 13/13/0 1:08:15.0 0:35:15.0 0:51:0.0 0:05:30.0 0:31:17.0 0:35:43.0 0:54:16.0 0:59:29.0 1:01:32.0 0:30:43.0 0:00:0.0 0:11:0.0 0:51:0.0 0:05:30.0 0:31:17.0 0:09:43.0 0:00:0.0 0:00:0.0 0:00:30.0 0:00:0.0 1:08:15.0 0:24:15.0 0:00:0.0 0:00:0.0 0:00:0.0 0:26:0.0 0:54:16.0 0:59:29.0 1:01:2.0 0:30:43.0 0:00:0.0 0:00:0.0 0:00:0.0 0:00:0.0 0:15:17.0 0:35:43.0 0:54:16.0 0:15:14.0 0:20:17.0 0:25:43.0 1:08:15.0 0:35:15.0 0:51:0.0 0:05:30.0 0:16:0.0 0:00:0.0 0:00:0.0 0:44:15.0 0:41:15.0 0:05:0.0 0:00:0.0 0:00:0.0 0:00:0.0 0:00:0.0 0:15:17.0 0:09:43.0 0:00:0.0 0:00:0.0 0:00:0.0 0:00:0.0 Respiratory Event Counts IP/EP/O2 Obstr. Ap. Mixed Ap. Central Ap. Hypopneas* RERAs 4/4/0 5/5/0 6/6/0 7/7/0 8/8/0 9/9/0 10/10/0 11/11/0 12/12/0 13/13/0 0 0 0 0 0 0 0 0 0 0 0 0 0 0 0 0 0 0 0 0 0 0 0 0 0 1 0 0 2 0 0 0 0 1 1 1 0 1 1 1 3 1 1 1 0 0 0 1 0 0 *Includes all types of hypopneas: those associated with arousals or >=3% desaturations. Respiratory Indices (events per hour) IP/EP/O2 OAI JOSE A BRET HI* RDI 4/4/0 5/5/0 6/6/0 7/7/0 8/8/0 9/9/0 10/10/0 11/11/0 12/12/0 13/13/0 0.0 0.0 0.0 0.0 0.0 0.0 0.0 0.0 0.0 0.0 0.0 0.0 0.0 0.0 0.0 0.0 0.0 0.0 0.0 0.0 0.0 0.0 0.0 0.0 0.0 1.7 0.0 0.0 2.0 0.0 0.0 0.0 0.0 10.9 1.9 1.7 0.0 1.0 1.0 2.0 2.6 1.7 1.2 21.8 1.9 3.4 0.0 2.0 2.9 2.0 *Includes all types of hypopneas: those associated with arousals or >=3% desaturations. Respiratory Indices (events per hour) IP/EP/O2 AHI Supine Non-Sup. REM Non-REM 4/4/0 5/5/0 6/6/0 7/7/0 8/8/0 9/9/0 10/10/0 11/11/0 12/12/0 13/13/0 0.0 0.0 0.0 10.9 1.9 3.4 0.0 1.0 2.9 2.0 0.0 0.0 0.0 10.9 1.9 0.0 0.0 0.0 0.0 0.0 0.0 0.0 0 0 0 4.6 0.0 1.0 2.9 2.0 0.0 0.0 0.0 0.0 0.0 3.4 0.0 0.0 8.9 2.3 0.0 0.0 0.0 10.9 3.8 0.0 0.0 1.4 0.0 0.0 *Includes all types of hypopneas: those associated with arousals or >=3% desaturations. Oxygen Saturations IP/EP/O2 Minimum Mean 4/4/0 5/5/0 6/6/0 7/7/0 8/8/0 9/9/0 10/10/0 11/11/0 12/12/0 13/13/0 95 96 96 95 94 95 96 95 93 95 96 96 97 96 96 97 97 97 96 96 Graphs CPAP/Bi-Level PLMs Body Position documented in this encounter Plan of Treatment Not on file documented as of this encounter Visit Diagnoses Diagnosis ALISON (obstructive sleep apnea) Obstructive sleep apnea (adult) (pediatric) documented in this encounter Care Teams Flight/Transport Nurse Relationship Specialty Start Date End Date Padmini Garcia MD [facility] [address] [place] [address] PCP - General Psychiatry 06/30/17 documented as of this encounter
--- OUTSIDE RECORDS SUMMARY | 2024-10-02 18:52 | XMS_ITS | Encounter Summary ---
Author Organization [facility] Address [facility] [place] [address] Care Team Providers Care Lifeguard Name Role Phone Padmini Garcia MD Primary Care Provider [phone] Encounter Details Date Type Department Care Team (Late st Contact Info) Description 09/06/2017 1:55 PM EST Laboratory Appointment Lab at [facility] [address] [place] [address] Hypersomnia Social History Tobacco Use Types Packs/Day Years Used Date Smoking Tobacco: Never Assessed Sex and Gender Information Value Date Recorded Sex Assigned at Not on file Gender Identity Not on file Sexual Orientation Not on file documented as of this encounter Plan of Treatment Not on file documented as of this encounter Procedures Procedure Name Priority Date/Time Associated Diagnosis Comments RAPID DRUG SCREEN, URINE Routine 09/06/2017 12:45 AM EST Hypersomnia RAPID DRUG SCREEN W/ CONFIRMATION, URINE Routine 09/06/2017 12:45 AM EST U METHYLPHENIDATE+MET ABOLITES Routine 09/06/2017 12:45 AM EST Hypersomnia documented in this encounter Results * DARNELL Screen w/ Confirmation (09/06/2017 12:45 AM EST) Barbiturates Screen, Urine None Detected None Detected [facility] Comment: The barbiturate screen detects barbiturates at concentrations >200 ng/mL. Note: Not all barbiturates cross-react equally with antibody used in this screen. A ? Presumptive Positive? result indicates that the screening result was positive but has not yet been confirmed by a highly-specific method. As with any screen, occasional false positive results from cross-reacting substances may occur. Not for Medico-Legal Purposes. Benzodiazepines Screen, Urine None Detected None Detected [facility] Comment: The benzodiazepines screen detects benzodiazepines at concentrations >100 ng/mL. Not all benzodiazepines cross-react equally with antibody used in this screen. Due to the low dosage of clonazepam, false negatives may be obtained due to low concentration of clonazepam metabolites. A ? Presumptive Positive? result indicates that the screening result was positive but has not yet been confirmed by a highly-specific method. As with any screen, occasional false positive results from cross-reacting substances may occur. Not for Medico-Legal Purposes. Cocaine Screen, Urine None Detected None Detected [facility] Comment: The cocaine metabolites screen detects benzoylecgonine (Cocaine Metabolite) at concentrations >150 ng/mL. A ? Presumptive Positive? result indicates that the screening result was positive but has not yet been confirmed by a highly-specific method. As with any screen, occasional false positive results from cross-reacting substances may occur. Not for Medico-Legal Purposes. Methadone Metabolites Screen, Urine None Detected None Detected [facility] Comment: The methadone metabolite screen detects EDDP (major methadone metabolite) at concentrations >100 ng/mL. A ? Presumptive Positive? result indicates that the screening result was positive but has not yet been confirmed by a highly-specific method. As with any screen, occasional false positive results from cross-reacting substances may occur. Not for Medico-Legal Purposes. Opiate Screen, Urine None Detected None Detected [facility] Comment: The opiates screen detects opiates at concentrations >300 ng/mL. Please note that oxycodone, oxymorphone, fentanyl, tramadol, and other synthetic opioids are not detected by the opiate screen. A ? Presumptive Positive? result indicates that the screening result was positive but has not yet been confirmed by a highly-specific method. As with any screen, occasional false positive results from cross-reacting substances may occur. Not for Medico-Legal Purposes. Cannabinoid Screen, Urine None Detected None Detected [facility] Comment: The marijuana metabolites screen detects the THC metabolite (31-tdw-0-carboxy-delta 9-THC) at concentrations >20 ng/mL. A ? Presumptive Positive? result indicates that the screening result was positive but has not yet been confirmed by a highly-specific method. As with any screen, occasional false positive results from cross-reacting substances may occur. Not for Medico-Legal Purposes. Oxycodone Screen, Urine None Detected None Detected [facility] Comment: The oxycodone screen detects oxycodone and oxymorphone at concentrations >100 ng/mL. A ? Presumptive Positive? result indicates that the screening result was positive but has not yet been confirmed by a highly-specific method. As with any screen, occasional false positive results from cross-reacting substances may occur. Not for Medico-Legal Purposes. Buprenorphine Screen, Urine None Detected None Detected [facility] Comment: The buprenorphine screen detects buprenorphine at concentrations >5 ng/mL. A ? Presumptive Positive? result indicates that the screening result was positive but has not yet been confirmed by a highly-specific method. As with any screen, occasional false positive results from cross-reacting substances may occur. Not for Medico-Legal Purposes. Fentanyl Screen, Urine None Detected None Detected [facility] Comment: The fentanyl screen detects fentanyl at concentrations >2 ng/mL. A ? Presumptive Positive? result indicates that the screening result was positive but has not yet been confirmed by a highly-specific method. As with any screen, occasional false positive results from cross-reacting substances may occur. Not for Medico-Legal Purposes. Tricyclics Screen, Urine None Detected None Detected [facility] Comment: The tricyclics screen detects tricyclic antidepressants at concentrations >150 ng/mL. Not all tricyclics cross-react equally with the antibody used in this screen. A ? Presumptive Positive? result indicates that the screening result was positive but has not yet been confirmed by a highly-specific method. As with any screen, occasional false positive results from cross-reacting substances may occur. Not for Medico-Legal Purposes. Ethanol Screen, Urine None Detected None Detected [facility] Comment:This urine ethanol a ssay detects ethanol at concentrations >/= 100 mg/L. Amphetamines Screen, Urine None Detected None Detected [facility] Comment: The amphetamine screen detects d-amphetamine and d-methamphetamine at concentrations >300 ng/mL. A ? Presumptive Positive? result indicates that the screening result was positive but has not yet been confirmed by a highly-specific method. As with any screen, occasional false positive results from cross-reacting substances may occur. Not for Medico-Legal Purposes. Adulterants Screen, Urine None Detected None Detected [facility] Comment: No adulteration or dilution of this urine sample was detected. All urine samples submitted for urine drugs of abuse analysis are tested for creatinine concentration, pH, and for the presence of oxidants, nitrites, and chromate. Urine specimen (specimen) 09/06/2017 12:45 AM EST 09/06/2017 4:29 PM EST Narrative Resulting Agency Comment Spec In Lab Su Garcia MD CHEMISTRY ORDERABLES Performing Organization Address [facility] de Phone Number [facility] [place] [address] * U Methylphenidate+Metabolites (09/06/2017 12:45 AM EST) U Methylphenidate (FEBRUARY) NEGATIVE Not Established ng/mL [facility] Comment: Test Performed by: [employer], [employer]. [address] [place] [address] U Ritalinic Acid (FEBRUARY) NEGATIVE Not Established ng/mL [facility] Comment: This test was developed and its performance characteristics determined by [facility]. ??It has not been cleared or approved by the Food and Drug Administration. Test Performed by: [employer], [employer]. [address] [place] [id number] Urine specimen (specimen) 09/06/2017 12:45 AM EST 09/07/2017 8:34 AM EST Narrative Resulting Agency Comment Spec In Lab Su Garcia MD LAB SEND OUT ORDERAB LES Performing Organization Address [facility] Co de Phone Number [facility] [place] [address] * DARNELL Request (09/06/2017 12:45 AM EST) DARNELL Conf Requested Yes [facility] DARNELL Requested See Comment [facility] Comment:Refer to the DARNELL Scr een w/ Confirmation order for results. Urine specimen (specimen) 09/06/2017 12:45 AM EST 09/06/2017 4:29 PM EST Narrative Resulting Agency Comment Spec In Lab Su Garcia MD URINE ORDERABLES Performing Organization Address City/State/[facility] Co de Phone Number [facility] [place] [address] documented in this encounter Visit Diagnoses Diagnosis Hypersomnia Hypersomnia, unspecified documented in this encounter Care Teams Lifeguard Relationship Specialty Start Date End Date Padmini Garcia MD [address] [address] PCP - General Psychiatry 06/30/17 documented as of this encounter
--- OUTSIDE RECORDS SUMMARY | 2024-10-02 18:52 | XMS_ITS | Encounter Summary ---
Author Organization [facility] [place] [address] Care Team Providers Care Distribution Operations Supervisor Name Role Phone Padmini Garcia MD Primary Care Provider [phone] Encounter Details Date Type Department Care Team (Late st Contact Info) Description 03/20/2022 11:25 PM EDT Ancillary Procedure Radiology Library at [facility] [place] [id number] Padmini Garcia MD [facility] AT [address] [address] Urinary tract infection without hematuria, site unspecified Social History Tobacco Use Types Packs/Day Years Used Date Smoking Tobacco: Never Assessed Sex and Gender Information Value Date Recorded Sex Assigned at Not on file Gender Identity Not on file Sexual Orientation Not on file documented as of this encounter Plan of Treatment Not on file documented as of this encounter Procedures Procedure Name Priority Date/Time Associated Diagnosis Comments FILM LIBRARY STORAGE ONLY CT ABDOMEN AND PELVIS Routine 03/20/2022 11:21 PM EDT documented in this encounter Results * Film Library- Storage Only CT Abdomen & Pelvis (03/20/2022 11:21 PM EDT) Narrative JENSEN SANDHU - 03/20/2022 11:21 PM EDT This exam is auto-finalizing. It's purpose is for storage only. Padmini Garcia MD IMG FILM LIBRARY ORD ERABLES [place], [place] documented in this encounter Visit Diagnoses Diagnosis Urinary tract infection without hematuria, site unspecified documented in this encounter Care Teams Distribution Operations Supervisor Relationship Specialty Start Date End Date Padmini Garcia MD [facility] [address] [place] [address] PCP - General Psychiatry 06/30/17 documented as of this encounter
--- OUTSIDE RECORDS SUMMARY | 2024-10-02 18:52 | XMS_ITS | Encounter Summary ---
Author Organization [facility] [place] [address] Care Team Providers Care Solidworks Drafter Name Role Phone Padmini Garcia MD Primary Care Provider [phone] Encounter Details Date Type Department Care Team (Late Contact Info) Description 04/16/2023 11:30 AM EDT TH Visit (TeleHealth) Sleep Center at [facility] [address] [place] [address] Chio Berumen APRN [facility] [place] [address] ALISON on CPAP Social History Tobacco Use [...] - Inhaled Oxygen Concentration - - Weight 49.9 kg (110 lb) 04/16/2023 11:22 AM EDT Height 154.9 cm (5' 1) 04/16/2023 11:22 AM EDT Body Mass Index 20.78 04/16/2023 11:22 AM EDT documented in this encounter Progress Notes * Chio Berumen APRN - 04/16/2023 11:30 AM EDT Sleep Medicine Telemedicine Follow-Up Note Patient is currently located at their home in [place]. Patient provided verbal consent prior to initiation of this encounter and expressed understanding that the telemedicine visit may be billed similar to a clinic visit CC: Ms. Paula Osullivan is a 42 y.o. female seen for telemedicine follow-up of obstructive sleep apnea. HPI: Sleep Study with MSLT 2017: AHI 8. CMS AHI of 0 which [...] sleep quality and increased daytime energy and alertness on CPAP. Takes adderall 5 mg BID for ADHD which works well for her. Insomnia is well managed with PRN melatonin. Now working 2nd shift, which works well with her preferred pattern, she is a night owl. Humidity: yes Dry Mouth/Throat: no Difficulty Breathing Through Nose/Mouth Breathing: no Symptoms: Patient-reported last 4 scores: 10/05/2018 11:23 AM 03/12/2021 10:50 AM 04/14/2022 9:48 AM 04/15/2023 8:37 PM [facility] [place] [facility] 7 (Low Risk) 7 (Low Risk) 2 (Low Risk) 5 (Low Risk) Insomnia Severity Index 19 (Moderately severe insomnia) 7 (No clinically significant insomnia) Snoring: Not on CPAP Nocturnal sleep quality improved: yes Daytime symptoms improved (Daytime sleepiness/fatigue): yes Naps: no Involuntary Dozing: not generally Sleepiness or Drowsiness when driving: no Sleep Pattern: Bedtime: 3-4a, working second shift, takes melatonin PRN, melatonin helps, asleep within 10-15 minutes. Position: laterally and prone Rise time: 1pm Awakenings: 1-2 time due to CPAP noise or if room too hot, to urinate Card Data Download: Date Range: 01/15-04/14/23 Pressure: 11 cm Residual AHI: 0.8 95th% Leak: 17.9 Median Leak: 1.6 Average Usage (Days Used/Hours): 8 hrs 1 min Days of usage: 88/90 % Days used > 4 hours: 84% Previous Card Data Download: Date Range: 01/13-04/12/22 Pressure: 11 cm Residual AHI: 0.7 95th% Leak: 23.9 Median Leak: 3.9 Average Usage (Days Used/Hours): 7 hrs 53 min Days of usage: 90/90 % Days used > 4 hours: 97% Current Outpatient Medications: ferrous gluconate (Ferate) 324 mg (37.5 mg iron) tablet, Take 324 mg by mouth daily., Disp: , Rfl: ascorbic acid, Vitamin C, (Vitamin C) 500 mg tablet, Take 500 mg by mouth daily., Disp: , Rfl: Saw [place]ms Fruit 450 mg capsule, Take by mouth., Disp: , Rfl: NONFORMULARY REQUEST, 3 times daily. Fiber supplement, Disp: , Rfl: Brindall Mckeon-Chromium (Garcinia Cambogia) 200-500 mcg-mg Tablet, Take by mouth., Disp: , Rfl: buPROPion SR (Wellbutrin SR) 100 mg tablet sustained-release 12 hr, TAKE 1 TABLET BY MOUTH ONCE DAILY WITH THE 150 MG XL FORMULATION TO ACHIEVE A DAILY DOSE OF 250 MG., Disp: , Rfl: buPROPion XL (Wellbutrin XL) 150 mg Tablet Extended Release 24 hr, TAKE 1 TABLET BY MOUTH ONCE DAILY ALONG WITH THE 100 MG SR FORMULATION FOR A TOTAL DAILY DOSE OF 250 MG DAILY FOR CONCENTRATION AND MOOD., Disp: , Rfl: cholecalciferol, Vitamin D3, 50 mcg (2,000 unit) Tablet, Take 10,000 Units by mouth daily., Disp: ,Rfl: melatonin 5 mg Tablet, Take 3 mg by mouth as needed. gummies, Disp: , Rfl: BIOTIN ORAL, Take by mouth., Disp: , Rfl: NONFORMULARY REQUEST, Joint supplement, Disp: , Rfl: multivitamin Capsule, Take 1 capsule by mouth daily. Indications: centrum silver, Disp: , Rfl: Greenlandic Ginseng Root 518 mg Capsule, Take 1 capsule by mouth., Disp: , Rfl: cyanocobalamin 1,000 mcg Tablet, Take 1,000 mcg by mouth daily., Disp: , Rfl: sertraline (ZOLOFT) 100 mg Tablet, 100 mg 2 times daily., Disp: , Rfl: dextroamphetamine-amphetamine (ADDERALL) 5 mg Tablet, 5 mg 2 times daily. , Disp: , Rfl: pravastatin (PRAVACHOL) 40 mg Tablet, 40 mg daily., Disp: , Rfl: lamoTRIgine (LAMICTAL) 200 mg Tablet, 200 mg 2 times daily., Disp: , Rfl: diphenhydrAMINE (BENADRYL) 25 mg Capsule, Take 25 mg by mouth nightly as needed for Sleep. Indications: Insomnia, Disp: , Rfl: Active Ambulatory Problems Diagnosis Date Noted ALISON (obstructive sleep apnea) 09/24/2017 UTI (urinary tract infection) 03/20/2022 Resolved Ambulatory Problems Diagnosis Date Noted No Resolved Ambulatory Problems Past Medical History: Diagnosis Date Attention or concentration deficit Depression with anxiety Fe deficiency anemia Hyperreflexia Insomnia TLE (temporal lobe epilepsy) ROS: Constitutional: Weight change: patient not weighed today, based on most recent weight in Epic weight has been- Wt Readings from Last 3 Encounters: 04/16/23 49.9 kg (110 lb) 04/13/22 45.4 kg (100 lb) 03/11/21 45.4 kg (100 lb) ENT: Nasal Obstruction: no : Nocturia: no Time spent: total time of visit was 20 minutes, including face to face counseling, chart review anddocumentation Assessment: Ms. Paula Osullivan is a 42 y.o. female seen for obstructive sleep apnea. [...] (pediatric) documented in this encounter Care Teams Solidworks Drafter Relationship Specialty Start Date End Date Padmini Garcia MD [address] [address] PCP - General Psychiatry 06/30/17 documented as of this encounter
--- OUTSIDE RECORDS SUMMARY | 2024-10-02 18:52 | XMS_ITS | Encounter Summary ---
Author Organization [facility] Address [address] [place] [address] Care Team Providers Care Printing Film Stripper Name Role Phone Unavailable Primary Care Provider Unavailabl e Encounter Details Date Type Department Care Team (Late st Contact Info) Description 09/16/2010 Historical Results Only [facility] - [facility] Lab - Main [place] [address] [place], [place] [id number] Lyndsay Dos Santos MD [address] [place] [phone] Social History Tobacco Use Types Packs/Day [...] Procedure Name Priority Date/Time Associated Diagnosis Comments SURGICAL PATHOLOGY Routine 09/16/2010 documented in this encounter Results * SURGICAL PATHOLOGY (09/16/2010) 09/16/2010 09/16/2010 13: 47 EST Narrative [facility] - 09/17/2010 12:52 EST ----- ------- Name: PAULA JAMES ?: [birth year] ?Age/Sex: 39/F ?Unit#: [id number] ? Loc: LAB.OPX ? Status: REG REF ?? Reg Date: 09/16/10 ? Pt.Phone Number: ? ----- ------- Specimen: [id number] ? STATUS: SOUT ?Spec Date:09/16/10 ? Physician Copies: ?Lyndsay Dos Santos MD ? Tissues: A ?? Skin, other than cyst (BACK) ? CPT: 74647 ?? Units: ??1 ?FINAL DIAGNOSIS ? Skin of back, punch biopsy; ? - Melanocytic nevus, compound type. ----- ------- ?COMMENT ? Sections show a compound melanocytic proliferation. ??The junctional component predominantly consists of mostly small nests at the tips of rete pegs. ??There is focal lentiginous activity, but no confluent growth or upward migration of melanocytes is identified. ??The lesion is completely excised in the plane of section examined. ? GROSS DESCRIPTION ? Received in formalin labeled with the patient's name and atypical mole back ? is a 0.5 cm diameter punch biopsy of pale conway skin. ??The biopsy is centered on ? a flat brown pigmented lesion with slightly irregular borders. ??Grossly, the ? lesion is clear of the edges of the biopsy, bisected, e.s. 1. CP ?? PREOP DX/CLINICAL HISTORY ?Atypical mole on back. Signed ____(signature on file)____ Lisandra Muir M.D. 09/17/10 By the signature above, the attending physician certifies that he/she has personally conducted a gross and/or microscopic examination of the described specimens and rendered or confirmed the above diagnosis. Test Performed by [facility], [address] [place] [address] Patient Sitter: Lisandra Muir MD PHD ----- ------- us Lyndsay Dos Sanots MD PATHOLOGY ORDERABLES Final Resul t [facility] documented in this encounter Visit Diagnoses Not on filedocumented in this encounter
--- OUTSIDE RECORDS SUMMARY | 2024-10-02 18:52 | XMS_ITS | Encounter Summary ---
Author Organization [facility] Address [address] [place] [address] Care Team Providers Care Reimbursement Coordinator Name Role Phone Unavailable Primary Care Provider Unavailabl e Encounter Details Date Type Department Care Team (Late st Contact Info) Description 06/06/2018 Historical Results Only [facility] [place] [address] [place], [place] [id number] Rebeca Puckett PA [address] [place] [address] Social History Tobacco Use Types Packs/Day Years [...] Procedure Name Priority Date/Time Associated Diagnosis Comments HPV DNA DETECTION WITH GENOTYPING, PCR Routine 06/06/2018 9:46 EDT PAP TEST Routine 06/06/2018 documented in this encounter Results * HUMAN PAPILLOMAVIRUS (HPV) DETECTION-HIGH RISK TYPES (06/06/2018 9:46 EDT) HPV other High Risk types, PCR NEG 06/08/2018 15:26 EDT [facility] Comment: Negative for HPV types 16, 18, 31, 33, 35, 39, 45, 51, 52, 56, 58, 59, 66, 68. Method: Cervista HPV HR (High Risk) DNA test. 06/06/2018 9:46 EDT 06/07/2018 9:46 EDT us Rebeca [facility] Final Result [facility] * PAP TEST (06/06/2018) 06/06/2018 06/07/2018 9:4 5 EDT Narrative [facility] - 06/16/2018 16:46 EDT ----- ------- Name: DEIDRE JAMES ?: [birth year] ?Age/Sex: 38/F ?Unit#: [id number] ? Loc: [facility] ? Status: REG REF ?? Reg Date: 06/06/18 ? Pt.Phone Number: ? ----- ------- Specimen: [id number] ?STATUS: SOUT ?Spec Date:06/06/18 ? Physician Copies: ?Rebeca Puckett PA-C Tissues: ? Cervical/Endo Pap ?Adelaide Soliman CPT: 21249 ?? Units: ??1 ----- ------- ? CYTOLOGY DIAGNOSIS SPECIMEN ADEQUACY: ?Satisfactory for evaluation. Transformation zone component present. GENERAL CATEGORIZATION: ?Negative for Intraepithelial Lesion or Malignancy DESCRIPTIVE DIAGNOSIS: ??Reactive cellular changes associated with inflammation present (includes typical repair). ----- ------- ?HPV DNA RESULTS ? LABORATORY ?? Date ? Time Test ?Result ?? Flag ?Normal Range ?? 08/20/18 0946 HPV DNA RESULT ??NEG ? Negative for HPV types 16, 18, 31, 33, 35, 39, 45, 51, 52, ? 56, 58, 59, 66, 68. ? Method: Cervista HPV HR (High Risk) DNA test. ----- ------- ORDER QUERIES: LMP: ? - ? Post ?PREVIOUS ATYPICAL: ?? BCP/HRT? ?? Rad Rx? ?? IUD?PAP PLUS HPV? Y ??REFLEX TO HR-HPV IF ASCUS ?? REFLEX TO HPV 16/18 IF HPV POS/PAP NEG Y HPV REGARDLESS?RFLX HPV IF LSIL ?? Signed ____(signature on file)____ Barbara Ziegler M.D. 06/16/18 ? By the signature above, the attending physician certifies that he/she has personally conducted a gross and/or microscopic examination of the described specimens and rendered or confirmed the above diagnosis. Test Performed by [facility], [address] [place] [address] Supervisor Paint Department: Lisandra Muir MD PHD ----- ------- us Rebeca [facility] PATHOLOGY ORDERABLES Final Re sult [facility] documented in this encounter Visit Diagnoses Not on filedocumented in this encounter
--- OUTSIDE RECORDS SUMMARY | 2024-10-02 18:52 | XMS_ITS | Encounter Summary ---
Author Organization [facility] Address [address] [place] [address] Care Team Providers Care Scale Adjuster Name Role Phone Unavailable Primary Care Provider Unavailabl e Encounter Details Date Type Department Care Team (Late st Contact Info) Description 06/07/2018 Historical Results Only [facility] - [facility] [place] [address] [place], [place] [id number] Carrillo Everett MD [address] [place] [phone] Social History Tobacco Use Types Packs/Day [...] Diagnosis Comments BASIC METABOLIC PANEL POCT - [facility] Routine 06/07/2018 13:32 EDT VITAMIN D 25 POC - [facility] Routine 06/07/2018 13:32 EDT LIPID PANEL POC - [facility] Routine 06/07/2018 13:32 EDT THYROID STIM HORMONE POC - [facility] Routine 06/07/2018 13:32 EDT CBC W/PLT & DIFF,POINT OF CARE - [facility] Routine 06/07/2018 13:32 EDT POCT CHOLESTEROL LDL ([facility]) Routine 06/07/2018 13:32 EDT documented in this encounter Results * (ABNORMAL) VITAMIN D 25 POC - [facility] (06/07/2018 13:32 EDT) Pathologist [facility] VIT D, 25 HYDROXY - [facility] 21(L) 30 - 100 NG/ML 06/07/2018 13:33 EDT [facility] 06/07/2018 13:3 2 EDT 06/07/2018 13:32 EDT Carrillo Everett MD CHEMISTRY & BLOOD GAS ORDERABLES Final Result [facility] * THYROID STIM HORMONE POC - [facility] (06/07/2018 13:32 EDT) [facility] THYROID STIM HORMONE - [facility] 3.11 0.45 - 5.33 UIU/ML 06/07/2018 13:33 EDT [facility] 06/07/2018 13:3 2 EDT 06/07/2018 13:32 EDT Carrillo Everett MD CHEMISTRY & BLOOD GAS ORDERABLES Final Result [facility] * (ABNORMAL) LIPID PANEL POC - [facility] (06/07/2018 13:32 EDT) [facility] Triglyceride 57 0.00 - 150.00 MG/DL 06/07/2018 13:33 EDT [facility] Cholesterol 179 0.00 - 200.00 MG/DL 06/07/2018 13:33 EDT [facility] HDL 84(H) 40.00 - 60.00 MG/DL 06/07/2018 13:33 EDT [facility] 06/07/2018 13:3 2 EDT 06/07/2018 13:32 EDT us Carrillo Everett MD CHEMISTRY & BLOOD GAS ORDERABLES Final Result [facility] * POCT CHOLESTEROL LDL ([facility] (06/07/2018 13:32 EDT) LDL CHOLESTEROL - [facility] 84 60 - 100 MG/DL 06/07/2018 13:33 EDT [facility] 06/07/2018 13:3 2 EDT 06/07/2018 13:32 EDT us Carrillo Everett MD POINT OF CARE TEST ORDERABLES Fi nal Result [facility] * (ABNORMAL) CBC W/PLT & DIFF,POINT OF CARE - [facility] (06/07/2018 13:32 EDT) Gran # 3.3 1.4 - 6.5 X10E3/UL 06/07/2018 13:33 [facility] GRAN % - [facility] 57.3 42.2 - 75.2 % 06/07/2018 13:33 [facility] HEMATOCRIT - [facility] 38.3 35.0 - 60.0 % 06/07/2018 13:33 [facility] HEMOGLOBIN - [facility] 13.0 11.0 - 18.0 G/DL 06/07/2018 13:33 [facility] LYMPH # - [facility] 2.1 1.2 - 3.4 X10E3/UL 06/07/2018 13:33 [facility] LYMPH% - [facility] 36.9 20.5 - 51.1 % 06/07/2018 13:33 [facility] MEAN CORPUSCULAR HGB - [facility] 31.5(H) 27.0 - 31.0 PG 06/07/2018 13:33 [facility] MEAN CORPUSCULAR HGB CONC - [facility] 33.9 33.0 - 37.0 G/DL 06/07/2018 13:33 [facility] MEAN CELL VOLUME - [facility] 92.9 80.0 - 99.9 FL 06/07/2018 13:33 [facility] MONO # - [facility] 0.3 0.1 - 0.6 X10E3/UL 06/07/2018 13:33 EDT [facility] MONO% - [facility] 5.8 1.7 - 9.3 % 06/07/2018 [facility] PLATELET VOLUME - [facility] 8.8 7.8 - 11.0 FL 06/07/2018 13:33 [facility] PLATELET COUNT 315 150 - 450 X10E3/UL 06/07/2018 13:33 EDT [facility] RED BLOOD COUNT - [facility] 4.12 4.00 - 6.00 X10E6/UL 06/07/2018 13:33 [facility] RED CELL DISTRI WIDTH - [facility] 12.7 11.6 - 13.7 % 06/07/2018 13:33 [facility] WHITE BLOOD COUNT - [facility] 5.8 4.5 - 10.5 X10E3/UL 06/07/2018 13:33 [facility] 06/07/2018 13:3 2 EDT 06/07/2018 13:32 EDT us Carrillo Everett MD CHEMISTRY & BLOOD GAS ORDERABLES Final Result [facility] * (ABNORMAL) BASIC METABOLIC PANEL POCT - [facility] (06/07/2018 13:32 EDT) BUN - [facility] 11 7.00 - 20.00 MG/DL 06/07/2018 13:33 EDT [facility] CALCIUM - [facility] 9.3 8.50 - 10.50 MG/DL 06/07/2018 13:33 [facility] Chloride 103 98.00 - 107.00 MMOL/L 06/07/2018 13:33 [facility] CO2 Total 31(H) 22.00 - 30.00 MMOL/L 06/07/2018 13:33 [facility] CREATININE 0.7 0.70 - 1.50 MG/DL 06/07/2018 13:33 [facility] Anion Gap 6(L) 7 - 17 MMOL/L 06/07/2018 13:33 EDT [facility] GLUCOSE - [facility] 88 70.00 - 100.00 MG/DL 06/07/2018 13:33 EDT [facility] Potassium 4.4 3.50 - 5.10 MMOL/L 06/07/2018 13:33 EDT [facility] Sodium 140 137.00 - 145.00 MMOL/L 06/07/2018 13:33 EDT [facility] 06/07/2018 13:3 2 EDT 06/07/2018 13:32 EDT us Carrillo Everett MD POINT OF CARE TEST ORDERABLES Fi nal Result [facility] documented in this encounter Visit Diagnoses Not on filedocumented in this encounter
--- OUTSIDE RECORDS SUMMARY | 2024-10-02 18:52 | XMS_ITS | Encounter Summary ---
Author Organization [facility] Address [facility] [place] [address] Care Team Providers Care Railroad Dining Car Steward/Stewardess Name Role Phone Padmini Garcia MD Primary Care Provider [phone] Encounter Details Date Type Department Care Team (Late st Contact Info) Description 08/23/2017 2:30 PM EST Procedure visit [facility] Center at [facility] [address] [place] [address] Андрей Fajardo MD [facility] [address] [facility] [address] Hypersomnia Social History Tobacco Use Types Packs/Day Years Used Date Smoking Tobacco: Never Assessed Sex and Gender Information Value Date Recorded Sex Assigned at Not on file Gender Identity Not on file Sexual Orientation Not on file documented as of this encounter Progress Notes * Андрей Fajardo MD - 08/23/2017 2:30 PM EST Images from the original note were not included. REPORT OF ACTIGRAPHY: Monitoring period: 08/23/2017 -- 09/06/2017 FINDINGS: Bedtime: Variable --During the first week, bedtime ranged from 2 PM to 2 AM; three nights ranged 8-9 P --During the second week, schedule was more erratic; no consistent bedtime was seen. Rise time: Variable --During the first week, 5 days ranged from 6 AM - 7.30 AM; latest of 9.30 P and last day of week slept from 2 A - 3 P --During the second week, rise time was more erratic, ranging from 8.30 A to 3 P and 8 P on one day Comments on pattern of sleep: First week was more uniformed with bedtimes and rise times. The second week, as noted above, was far more erratic with no set bed or rise times, and pt.'s schedule changing from day to day. Technical comments on Actigraphy: there are several periods of time that have increased activity though are scored as sleep, suggesting the possibility of patient being awake while in bed. Average Times: -Average time in Bed: 11 hours 56 min -Average total sleep time: 10 hours 37 min -Average Sleep onset latency: 15 minutes -Average WASO: 49 minutes. -Average Sleep Efficiency: 88% IMPRESSION: Review of actigraphy reveals that the patient has a highly erratic wake and sleep cycle. There are noted periods of time where patient appears to be active while in bed, raising the possibility of insomnia. Overall, average time in bed is approximately 12 hours, consistent with hypersomnia, though cannot rule out the possibility of contributing psychiatric conditions (e.g. Depression). Please see PSG report from 2016 and MSLT report from 2016 for further information and discussion. Андрей Fajardo MD Sleep Fellow This report was reviewed with Dr. Wolf. Please see his addendum for further information, exceptions, and clarifications. CC: Padmini Garcia MD Actigraphy Report Subject ID: [id number] Last Name: Abran, First Name: Paula : 1980 Age: 36 Gender: Female Recording Period: from 08/23/2017 1:53:00 PM to 09/06/2017 1:44:15 PM Indications for Use: Summary Statistics: Bed Time Get Up Time Time in Bed (hours) Total Sleep Time (hours) Onset Latency (minutes) Sleep Efficiency (percent) WASO (minutes) #Awak. Min 1:48:30 PM 6:19:15 AM 8:02:45 6:24:15 0.00 78.79 21.50 49 Max 5:29:00 AM 8:23:00 PM 17:07:30 16:05:15 59.25 96.76 97.00 110 Avg 10:55:20 PM 10:52:03 AM 11:56:42 10:37:12 14.80 88.13 48.77 70.86 Interpretation: 1 Subject ID: [id number] : 1980 Name: Paula Osullivan Actogram: Activity Scale: 1471/0 1 Subject ID: [id number] : 1980 Name: Paula Osullivan Actogram: Activity Scale: 1471/0 1 Subject ID: [id number] : 1980 Name: Paula Osullivan Actogram: Activity Scale: 1471/0 1 Subject ID: [id number] : 1980 Name: Paula Osullivan Daily Statistics: Date Bed Time Get Up Time Time in Bed (hours) Total Sleep Time (hours) Onset Latency (minutes) Sleep Efficiency (percent) WASO (minutes) #Awak. Wednesday08/23/2017 10:32:15 PM 6:35:00 AM 8:02:45 6:24:15 34.00 79.60 50.00 51 Wednesday08/24/2017 6:50:30 PM 7:22:30 AM 12:32:00 11:36:30 19.50 92.62 30.75 58 Wednesday08/25/2017 1:48:30 PM 6:56:00 AM 17:07:30 16:05:15 12.50 93.94 49.50 76 08/26/2017 7:47:00 PM 7:27:15 AM 11:40:15 9:51:15 59.25 84.43 39.50 84 Wednesday08/27/2017 9:37:45 PM 6:19:15 AM 8:41:30 7:54:00 0.00 90.89 30.25 55 Wednesday08/28/2017 10:01:30 PM 9:40:45 AM 11:39:15 10:56:30 0.00 93.89 35.00 70 Wednesday08/29/2017 2:02:00 AM 3:23:15 PM 13:21:15 12:55:15 0.25 96.76 21.50 49 Wednesday08/30/2017 10:07:45 PM 8:49:45 AM 10:42:00 9:49:30 0.00 91.82 32.00 75 Wednesday08/31/2017 5:29:00 AM 1:48:15 PM 8:19:15 6:53:45 25.75 82.87 46.00 69 Wednesday09/01/2017 2:47:30 AM 2:14:45 PM 11:27:15 9:12:30 6.25 80.39 69.00 61 09/02/2017 4:29:00 AM 8:23:00 PM 15:54:00 14:57:45 0.00 94.10 33.00 95 Wednesday09/03/2017 11:15:45 PM 2:55:00 PM 15:39:15 14:09:00 8.50 90.39 73.50 110 Wednesday09/04/2017 12:51:45 AM 11:30:00 AM 10:38:15 8:52:00 0.00 83.35 75.75 68 Wednesday09/05/2017 9:14:30 PM 8:44:00 AM 11:29:30 9:03:15 41.25 78.79 97.00 71 Wednesday09/06/2017 Ethel Davenport Each day represented above is from 12:00:00 PM to 12:00:00 PM on the next day. Summary Statistics: Bed Time Get Up Time Time in Bed (hours) Total Sleep Time (hours) Onset Latency (minutes) Sleep Efficiency (percent) WASO (minutes) #Awak. Min 1:48:30 PM 6:19:15 AM 8:02:45 6:24:15 0.00 78.79 21.50 49 Max 5:29:00 AM 8:23:00 PM 17:07:30 16:05:15 59.25 96.76 97.00 110 Avg 10:55:20 PM 10:52:03 AM 11:56:42 10:37:12 14.80 88.13 48.77 70.86 * Arsh Wolf MD - 08/23/2017 2:30 PM EST I reviewed the actigraphy in its entirety. I have reviewed Tana's note and agree with the findings and recommendations. ARSH WOLF MD documented in this encounter Plan of Treatment Not on file documented as of this encounter Visit Diagnoses Diagnosis Hypersomnia Hypersomnia, unspecified documented in this encounter Care Teams [employer] D[employer] Car Steward/Stewardess Relationship Specialty Start Date End Date Padmini Garcia MD [address] [address] PCP - General Psychiatry 06/30/17 documented as of this encounter
--- OUTSIDE RECORDS SUMMARY | 2024-10-02 18:52 | XMS_ITS | Encounter Summary ---
Author Organization [facility] [place] [address] Care Team Providers Care Opera Singer Name Role Phone Padmini Garcia MD Primary Care Provider [phone] Encounter Details Date Type Department Care Team (Late st Contact Info) Description 10/05/2018 Orders Only [facility] [address] [place] [address] Arsh Wolf MD [facility] [address] [place] [address] Social History Tobacco Use Types Packs/Day Years Used Date Smoking Tobacco: Never Assessed Sex and Gender Information Value Date Recorded Sex Assigned at Not on file Gender Identity Not on file Sexual Orientation Not on file documented as of this encounter Progress Notes * Arsh Wolf MD - 10/05/2018 12:32 PM EST Polysomnogram Order Form Room # Technologist Assignment: To be read by on PSG Patient Information Date of study: : 1980 Arrival Time: Name: Paula Osullivan 37 y.o. female Height: Weight: 113 lbs Normal Sleep Hours: 11-6:30 Physical/Mobility Limitations: No Cognitive Limitations: No Requires Male Tech: No Requires Female Tech: No Requires 1:1 Care: No Requires Parent/Caregiver: No Using Home Oxygen: No At home sleeps in: Bed PSG Indications: hypersomnia on auto CPAP 5-15 cm Other Medical Conditions: ADD, Seizure disorder on lamictal PSG Orders Type of study: CPAP titration Additional data required: none Special instructions: special attention to mask fit and comfort. *Initiate CPAP/BPAP/oxygen per previously determined protocols unless otherwise specified. documented in this encounter Plan of Treatment Not on file documented as of this encounter Visit Diagnoses Not on filedocumented in this encounter Care Teams Opera Singer Relationship Specialty Start Date End Date Padmini Garcia MD [address] [address] PCP - General Psychiatry 06/30/17 documented as of this encounter
== END 2024-10-02 18:50 | disposition home or self-care (01) ==
LOC: LBN 18:49
PROVIDERS: Visit Provider Nurse Practitioner Family
DX: N30.01 Acute cystitis with hematuria (principal)
CPT/HCPCS: 87077; 87086; 87186